=== PATIENT | male | born 1930 | race Caucasian/White ===

== ENCOUNTER 2016-07-06 23:31 | Emergency (ER) | payer MEDICARE, BC, OTHER ==
[~2016-07-06] VITALS: Ht 175.3 cm; Wt 75.3 kg
[2016-07-06 23:31] VITALS: BP 146/66
[2016-07-06] MEDS ORDERED: VITA10002 PO (23:42)
[2016-07-06] MEDS ORDERED: TAB-TAB PO (23:42)
[2016-07-06] MEDS ORDERED: FLUT1SPR2 INH (23:42)
[2016-07-06] MEDS ORDERED: LEVO50TA5 PO (23:42)
[2016-07-06] MEDS ORDERED: CRES5TAB PO (23:42)
[2016-07-06] MEDS ORDERED: AUGM875T27 PO (23:56)
[2016-07-07] MEDS ORDERED: AUGMENTIN 875 MG TAB PO ONE
== END 2016-07-07 00:14 | disposition home or self-care (01) ==
LOC: M ED 07-07 00:14
DX: L03.011 Cellulitis of right finger (principal); I10 Essential (primary) hypertension; E07.9 Disorder of thyroid, unspecified; I25.10 Atherosclerotic heart disease of native coronary artery without angina pectoris; Z79.899 Other long term (current) drug therapy

== ENCOUNTER → 2016-07-27 | Outpatient (REF) | payer MEDICARE, OTHER ==
[~2016-07-27] MED LIST: AUGM875T27 PO; CRES5TAB PO; FLUT1SPR2 INH; LEVO50TA5 PO; TAB-TAB PO; VITA10002 PO
== END ==
LOC: M LAB REF 16:55
PROVIDERS: ATTEND Surgery
DX: C44.622 Squamous cell carcinoma of skin of right upper limb, including shoulder (principal)

== ENCOUNTER → 2016-12-09 | Outpatient (CLI) | payer MEDICARE, BC, OTHER ==
[~2016-12-09] MED LIST changes: -AUGM875T27 PO; +AUGM875T28 PO
[2016-12-09 13:19] LABS: BASO % 0.4 % (0.0-1.0); EOS # 0.2 10^3/uL (0.0-0.50); EOS % 2.6 % (0.0-3.0); IMMATURE GRANULOCYTE % 0.3 % (0-0); LYMPH # 2.2 10^3/uL (1.5-4.5); LYMPH % 28.8 % (24.0-44.0); MEAN CORPUSCULAR HEMOGLOBIN 30.9 pg (27.0-33.0); MEAN CORPUSCULAR HGB CONC 31.8 g/dl (32.0-36.5); MEAN CORPUSCULAR VOLUME 97.4 fl (80.0-96.0); MONO # 0.8 10^3/uL (0.0-0.8); MONO % 9.9 % (0.0-5.0); NEUTROPHILS # 4.5 10^3/uL (1.8-7.7); PLATELET COUNT, AUTOMATED 237 10^3/uL (150-450); RED CELL DISTRIBUTION WIDTH 13.2 % (11.5-14.5); WHITE BLOOD COUNT 7.7 10^3/uL (4.0-10.0)
[2016-12-09 13:25] LABS: FOLATE > 24.0 NG/ML; VITAMIN B12 LEVEL 686 PG/ML
[2016-12-09 13:36] LABS: ALBUMIN 3.7 GM/DL (3.2-5.2); ALBUMIN/GLOBULIN RATIO 1.09 (1.00-1.93); ALKALINE PHOSPHATASE 69 U/L (45-117); ALT/SGPT 20 U/L (12-78); ANION GAP 8 MEQ/L (8-16); AST/SGOT 18 U/L (15-37); BILIRUBIN,TOTAL 0.4 MG/DL (0.2-1.0); BLOOD UREA NITROGEN 21 MG/DL (7-18); CALCIUM LEVEL 9.4 MG/DL (8.8-10.2); CARBON DIOXIDE LEVEL 28 MEQ/L (21-32); CHLORIDE LEVEL 107 MEQ/L (98-107); CHOLESTEROL LEVEL 162 MG/DL (<200); GLOMERULAR FILTRATION RATE > 60.0 (>35); GLUCOSE, FASTING 100 MG/DL (83-110); POTASSIUM SERUM 4.5 MEQ/L (3.5-5.1); SODIUM LEVEL 143 MEQ/L (136-145); TOTAL PROTEIN 7.1 GM/DL (6.4-8.2); TRIGLYCERIDES LEVEL 83 MG/DL (<150)
== END ==
LOC: M SMT 09:50
PROVIDERS: ATTEND Family Medicine
DX: D51.3 Other dietary vitamin B12 deficiency anemia (principal); E78.5 Hyperlipidemia, unspecified; E03.9 Hypothyroidism, unspecified

== ENCOUNTER → 2017-06-07 | Outpatient (CLI) | payer MEDICARE, BC, OTHER ==
[2017-06-07 18:01] LABS: BASO % 0.5 % (0.0-1.0); EOS # 0.1 10^3/uL (0.0-0.50); EOS % 1.7 % (0.0-3.0); HEMATOCRIT 33.4 % (42.0-52.0); HEMOGLOBIN 10.7 g/dl (14.0-18.0); IMMATURE GRANULOCYTE % 0.4 % (0-3.0); LYMPH # 2.9 10^3/uL (1.5-4.5); LYMPH % 34.7 % (24.0-44.0); MEAN CORPUSCULAR HEMOGLOBIN 30.8 pg (27.0-33.0); MEAN CORPUSCULAR VOLUME 96.3 fl (80.0-96.0); MONO # 0.7 10^3/uL (0.0-0.8); MONO % 8.9 % (0.0-5.0); NEUTROPHILS # 4.5 10^3/uL (1.8-7.7); NEUTROPHILS % 53.8 % (36.0-66.0); PLATELET COUNT, AUTOMATED 273 10^3/uL (150-450); RED BLOOD COUNT 3.47 10^6/uL (4.30-6.10); RED CELL DISTRIBUTION WIDTH 12.9 % (11.5-14.5); WHITE BLOOD COUNT 8.4 10^3/uL (4.0-10.0)
[2017-06-07 18:10] LABS: CHOLESTEROL LEVEL 163 MG/DL (<200); CHOLESTEROL RISK RATIO 2.432 (<5); HDL CHOLESTEROL 67 MG/DL (>40); NON-HDL-C 96 MG/DL; TRIGLYCERIDES LEVEL 160 MG/DL (<150); VITAMIN B12 LEVEL 658 PG/ML (247-911)
[2017-06-08 09:16] LABS: RETIC HEMOGLOBIN EQUIVALENT 35.6 pg (24-36); RETICULOCYTE # 37.8 10^9/L (17-77); RETICULOCYTE % 1.1 % (0.5-1.5)
[2017-06-08 09:59] LABS: FERRITIN 57 NG/ML (26-388); IRON (FE) 80 UG/DL (65-175); TOTAL IRON BINDING CAPACITY 348 UG/DL (250-450)
== END ==
LOC: M SMT 14:37
DX: E03.9 Hypothyroidism, unspecified (principal); E78.5 Hyperlipidemia, unspecified; D51.3 Other dietary vitamin B12 deficiency anemia
CPT/HCPCS: 83550

== ENCOUNTER 2017-07-17 19:17 | Emergency (ER) | payer MEDICARE, BC, OTHER | END 2017-07-17 22:37 | disposition home or self-care (01) | LOC: M ED 19:17 | DX: S00.83XA Contusion of other part of head, initial encounter (principal); S20.212A Contusion of left front wall of thorax, initial encounter; W18.30XA Fall on same level, unspecified, initial encounter; Y92.018 Other place in single-family (private) house as the place of occurrence of the external cause; E78.5 Hyperlipidemia, unspecified; E03.9 Hypothyroidism, unspecified; I25.10 Atherosclerotic heart disease of native coronary artery without angina pectoris; Z95.1 Presence of aortocoronary bypass graft; Z79.899 Other long term (current) drug therapy; Z79.890 Hormone replacement therapy; Z79.82 Long term (current) use of aspirin | CPT/HCPCS: 71046 ==

== ENCOUNTER 2017-10-10 06:08 | Day surgery (SDC) | payer MEDICARE, BC, OTHER ==
[2017-10-10] MEDS: NS 1,000 ML IV ×2 (06:45→11:35)
[2017-10-10 07:15] LABS: BASO % 0.2 % (0.0-1.0); EOS % 0.1 % (0.0-3.0); HEMATOCRIT 32.9 % (42.0-52.0); HEMOGLOBIN 10.8 g/dl (13.5-17.5); IMMATURE GRANULOCYTE % 0.4 % (0-3.0); LYMPH # 1.6 10^3/uL (1.5-4.5); LYMPH % 10.3 % (24.0-44.0); MEAN CORPUSCULAR HEMOGLOBIN 31.5 pg (27.0-33.0); MEAN CORPUSCULAR HGB CONC 32.8 g/dl (32.0-36.5); MEAN CORPUSCULAR VOLUME 95.9 fl (80.0-96.0); MONO # 1.2 10^3/uL (0.0-0.8); MONO % 7.3 % (0.0-5.0); NEUTROPHILS # 12.8 10^3/uL (1.8-7.7); NEUTROPHILS % 81.7 % (36.0-66.0); PLATELET COUNT, AUTOMATED 236 10^3/uL (150-450); RED BLOOD COUNT 3.43 10^6/uL (4.30-6.10); RED CELL DISTRIBUTION WIDTH 12.7 % (11.5-14.5); WHITE BLOOD COUNT 15.7 10^3/uL (4.0-10.0)
[2017-10-10] MEDS: ONDANSETRON 4MG/2ML VIAL (J2405) IV (07:30)
[2017-10-10 07:40] LABS: ALBUMIN 3.5 GM/DL (3.2-5.2); ALBUMIN/GLOBULIN RATIO 0.81 (1.00-1.93); ALKALINE PHOSPHATASE 60 U/L (45-117); ALT/SGPT 20 U/L (12-78); AMYLASE 42 U/L (25-115); ANION GAP 10 MEQ/L (8-16); AST/SGOT 20 U/L (7-37); BILIRUBIN,DIRECT < 0.1 MG/DL (0.0-0.2); BILIRUBIN,TOTAL 0.4 MG/DL (0.2-1.0); BLOOD UREA NITROGEN 28 MG/DL (7-18); CALCIUM LEVEL 9.3 MG/DL (8.8-10.2); CARBON DIOXIDE LEVEL 24 MEQ/L (21-32); CHLORIDE LEVEL 105 MEQ/L (98-107); CPK CREATINE PHOSPHOKINASE 73 U/L (39-308); CREATININE FOR GFR 2.06 MG/DL (0.70-1.30); GLOMERULAR FILTRATION RATE 32.6 (>35); GLUCOSE, FASTING 148 MG/DL (70-100); LIPASE 122 U/L (73-393); POTASSIUM SERUM 4.1 MEQ/L (3.5-5.1); SODIUM LEVEL 139 MEQ/L (136-145); TOTAL PROTEIN 7.8 GM/DL (6.4-8.2); TROPONIN I < 0.02 NG/ML (< 0.10)
[2017-10-10 07:40] LABS: LACTIC ACID SEPSIS PROTOCOL 1.2 MMOL/L (0.4-2.0)
[2017-10-10 07:41] LABS: CK-MB VALUE MASS 1.1 NG/ML (<3.6); KETONE, URINE AUTO RFX NEGATIVE (NEGATIVE); LEUKOCYTE ESTERASE UR AUTO RFX NEGATIVE (NEGATIVE); MUCUS, URINE RFX SMALL (NEGATIVE); NITRITE, URINE AUTO RFX NEGATIVE (NEGATIVE); RBC, URINE AUTO RFX 9 /HPF (0-3); SQUAM EPITHELIAL CELL UR AURFX 0 /HPF (0-6); WBC, URINE AUTO RFX 3 /HPF (0-3)
[2017-10-10] MEDS ORDERED: ONDANSETRON 4MG/2ML VIAL (J2405) IV ×2 (10:00→18:15)
[2017-10-10] MEDS ORDERED: PERCOCET 5MG/325MG TAB PO ×2 (10:00→18:15)
[2017-10-10] MEDS ORDERED: MORPHINE 4 MG/ML 1ML VIAL/SYRINGE (J2270) IV (10:00)
[2017-10-10] MEDS ORDERED: ACETAMINOPHEN TAB 650MG DOSE (2X325MG) PO (10:00)
[2017-10-10] MEDS ORDERED: ceFAZolin SOD 1 GM in D5W MINI-BAG PLUS 50 ML IV (11:00)
[2017-10-10] MEDS: ROSUVASTATIN 10 MG TAB (CRESTOR) PO (14:50)
[2017-10-10] MEDS: ASPIRIN 81 MG ENTERIC TAB PO (14:50)
[2017-10-10] MEDS: LEVOTHYROXINE 50MCG TABLET (0.05MG) PO (15:06)
[2017-10-10] MEDS: FLUTICASONE PROP 0.05% NASAL SPRAY 16 GM (FLONASE) NARES (15:06)
[2017-10-10] MEDS: ceFAZolin SOD 1 GM in D5W MINI-BAG PLUS 50 ML IV ×2 (15:08→22:21)
[2017-10-10] MEDS ORDERED: PROPOFOL 200 MG/20 ML VIAL As Ordered ×2 (16:18→16:22)
[2017-10-10] MEDS ORDERED: MIDAZOLAM INJ 2 MG/2 ML VIAL (J2250) As Ordered (16:18)
[2017-10-10] MEDS ORDERED: LIDOCAINE 2% INJ 100 MG/5 ML SDV (FOR ANES.) As Ordered (16:18)
[2017-10-10] MEDS ORDERED: fentaNYL 100 MCG/2 ML INJECTION (J3010) As Ordered ×2 (16:19→17:29)
[2017-10-10] MEDS ORDERED: dexameTHASONE 4 MG/ML 1ML VIAL (J1100) As Ordered (17:14)
[2017-10-10] MEDS ORDERED: GLYCOPYRROLATE INJ 0.2 MG/ML 2 ML VIAL As Ordered (17:14)
[2017-10-10] MEDS ORDERED: ONDANSETRON 4MG/2ML VIAL (J2405) As Ordered (17:14)
[2017-10-10] MEDS ORDERED: ePHEDrine SULFATE 25 MG/5 ML(5MG/ML) SYRINGE As Ordered (17:16)
[2017-10-10] MEDS: CONRAY-60 60% 50ML VIAL (Q9961) As Ordered (17:30)
[2017-10-10] MEDS ORDERED: HYDROMORPHONE HCL 0.5 MG/ 0.5 ML SYRINGE (J1170 PER 1) IV (18:15)
[2017-10-10] MEDS ORDERED: fentaNYL 100 MCG/2 ML INJECTION (J3010) IV (18:15)
[2017-10-10] MEDS: LR 1,000 ML IV (18:20)
[2017-10-11] MEDS: ceFAZolin SOD 1 GM in D5W MINI-BAG PLUS 50 ML IV (06:04)
[2017-10-11] MEDS: LEVOTHYROXINE 50MCG TABLET (0.05MG) PO (06:05)
[2017-10-11 06:24] LABS: HEMOGLOBIN 9.1 g/dl (13.5-17.5); MEAN CORPUSCULAR HEMOGLOBIN 31.7 pg (27.0-33.0); MEAN CORPUSCULAR HGB CONC 33.7 g/dl (32.0-36.5); MEAN CORPUSCULAR VOLUME 94.1 fl (80.0-96.0); PLATELET COUNT, AUTOMATED 188 10^3/uL (150-450); RED BLOOD COUNT 2.87 10^6/uL (4.30-6.10); RED CELL DISTRIBUTION WIDTH 12.6 % (11.5-14.5)
[2017-10-11 06:51] LABS: ANION GAP 9 MEQ/L (8-16); BLOOD UREA NITROGEN 23 MG/DL (7-18); CALCIUM LEVEL 8.1 MG/DL (8.8-10.2); CARBON DIOXIDE LEVEL 24 MEQ/L (21-32); CHLORIDE LEVEL 107 MEQ/L (98-107); CREATININE FOR GFR 1.48 MG/DL (0.70-1.30); GLOMERULAR FILTRATION RATE 47.8 (>35); GLUCOSE, FASTING 141 MG/DL (70-100); POTASSIUM SERUM 4.1 MEQ/L (3.5-5.1); SODIUM LEVEL 140 MEQ/L (136-145)
[2017-10-11] MEDS: FLUTICASONE PROP 0.05% NASAL SPRAY 16 GM (FLONASE) NARES (09:00)
[2017-10-11] MEDS ORDERED: ROSUVASTATIN 10 MG TAB (CRESTOR) PO (09:00)
[2017-10-11] MEDS: ROSUVASTATIN 10 MG TAB (CRESTOR) PO (09:47)
[2017-10-11] MEDS: ASPIRIN 81 MG ENTERIC TAB PO (09:47)
[2017-10-11] MEDS: CIPROFLOXACIN 500 MG TAB PO (10:01)
[2017-10-11] MEDS ORDERED: PILL CRUSHER/CUTTER 1 EACH XX (10:15)
[2017-10-18 00:06] LABS: Ca Ox Monohydrate 97 % (.); Size 8x5x3 mm (.)
== END 2017-10-11 14:32 | disposition home or self-care (01) ==
LOC: M SDC 10-11 14:32 → M ED 06:08 → M SDC 09:51 → M MSPAV 13:59
DX: N20.1 Calculus of ureter (principal); N17.9 Acute kidney failure, unspecified; N35.9 Urethral stricture, unspecified; I25.10 Atherosclerotic heart disease of native coronary artery without angina pectoris; Z95.1 Presence of aortocoronary bypass graft; Z79.82 Long term (current) use of aspirin; Z79.899 Other long term (current) drug therapy; M25.522 Pain in left elbow
CPT/HCPCS: 52352

== ENCOUNTER 2017-10-11 21:58 | Emergency (ER) | payer MEDICARE, BC, OTHER | END 2017-10-12 00:27 | disposition home or self-care (01) | LOC: M ED 21:58 | DX: T83.098A Other mechanical complication of other urinary catheter, initial encounter (principal); I25.10 Atherosclerotic heart disease of native coronary artery without angina pectoris; F03.90 Unspecified dementia, unspecified severity, without behavioral disturbance, psychotic disturbance, mood disturbance, and anxiety; Z98.890 Other specified postprocedural states; Z96.0 Presence of urogenital implants; Z79.899 Other long term (current) drug therapy ==

== ENCOUNTER → 2017-12-12 | Outpatient (CLI) | payer MEDICARE, BC, OTHER ==
[2017-12-12 16:39] LABS: BASO % 0.4 % (0.0-1.0); EOS # 0.2 10^3/uL (0.0-0.50); EOS % 3.1 % (0.0-3.0); HEMATOCRIT 31.7 % (42.0-52.0); HEMOGLOBIN 10.1 g/dl (13.5-17.5); IMMATURE GRANULOCYTE % 0.3 % (0-3.0); LYMPH # 2.3 10^3/uL (1.5-4.5); LYMPH % 30.4 % (24.0-44.0); MEAN CORPUSCULAR HEMOGLOBIN 31.3 pg (27.0-33.0); MEAN CORPUSCULAR HGB CONC 31.9 g/dl (32.0-36.5); MEAN CORPUSCULAR VOLUME 98.1 fl (80.0-96.0); MONO # 0.6 10^3/uL (0.0-0.8); MONO % 7.9 % (0.0-5.0); NEUTROPHILS # 4.5 10^3/uL (1.8-7.7); NEUTROPHILS % 57.9 % (36.0-66.0); PLATELET COUNT, AUTOMATED 262 10^3/uL (150-450); RED BLOOD COUNT 3.23 10^6/uL (4.30-6.10); RED CELL DISTRIBUTION WIDTH 13.2 % (11.5-14.5); WHITE BLOOD COUNT 7.7 10^3/uL (4.0-10.0)
[2017-12-12 16:42] LABS: ALBUMIN 4.1 GM/DL (3.2-5.2); ALBUMIN/GLOBULIN RATIO 1.37 (1.00-1.93); ALKALINE PHOSPHATASE 53 U/L (45-117); ALT/SGPT 17 U/L (12-78); ANION GAP 6 MEQ/L (8-16); AST/SGOT 16 U/L (7-37); BILIRUBIN,TOTAL 0.4 MG/DL (0.2-1.0); BLOOD UREA NITROGEN 25 MG/DL (7-18); CALCIUM LEVEL 9.8 MG/DL (8.8-10.2); CARBON DIOXIDE LEVEL 29 MEQ/L (21-32); CHLORIDE LEVEL 106 MEQ/L (98-107); CHOLESTEROL LEVEL 163 MG/DL (<200); CHOLESTEROL RISK RATIO 2.328 (<5); CREATININE FOR GFR 1.07 MG/DL (0.70-1.30); FREE T4 1.11 NG/DL (0.76-1.46); GLOMERULAR FILTRATION RATE > 60.0 (>35); GLUCOSE, FASTING 107 MG/DL (70-100); HDL CHOLESTEROL 70 MG/DL (>40); LDL CHOLESTEROL 68 MG/DL (<100); NON-HDL-C 93 MG/DL; POTASSIUM SERUM 4.1 MEQ/L (3.5-5.1); SODIUM LEVEL 141 MEQ/L (136-145); TOTAL PROTEIN 7.1 GM/DL (6.4-8.2); TRIGLYCERIDES LEVEL 125 MG/DL (<150)
== END ==
LOC: M LAB 15:46
DX: Z00.00 Encounter for general adult medical examination without abnormal findings (principal); E07.9 Disorder of thyroid, unspecified; E78.00 Pure hypercholesterolemia, unspecified
CPT/HCPCS: 84443

== ENCOUNTER 2018-03-26 06:53 | Emergency (ER) | payer MEDICARE, BC, OTHER ==
[~2018-03-26 06:53] MED LIST changes: +ASPI325T25 PO; +CIPR1TAB20 PO; +FERR325T3 PO; +FLUT1SPR2; -FLUT1SPR2 INH; +NYST10CR TOP
[2018-03-26 08:09] LABS: BASO % 0.1 % (0.0-1.0); EOS # 0.1 10^3/uL (0.0-0.50); EOS % 0.5 % (0.0-3.0); HEMATOCRIT 30.8 % (42.0-52.0); HEMOGLOBIN 10.1 g/dl (13.5-17.5); LYMPH # 1.4 10^3/uL (1.5-4.5); LYMPH % 12.2 % (24.0-44.0); MEAN CORPUSCULAR HEMOGLOBIN 31.9 pg (27.0-33.0); MEAN CORPUSCULAR HGB CONC 32.8 g/dl (32.0-36.5); MEAN CORPUSCULAR VOLUME 97.2 fl (80.0-96.0); MONO # 0.9 10^3/uL (0.0-0.8); MONO % 7.4 % (0.0-5.0); NEUTROPHILS # 9.3 10^3/uL (1.8-7.7); NEUTROPHILS % 79.1 % (36.0-66.0); PLATELET COUNT, AUTOMATED 234 10^3/uL (150-450); RED BLOOD COUNT 3.17 10^6/uL (4.30-6.10); WHITE BLOOD COUNT 11.7 10^3/uL (4.0-10.0)
[2018-03-26 08:37] LABS: BLOOD UREA NITROGEN 23 MG/DL (7-18); CALCIUM LEVEL 8.8 MG/DL (8.8-10.2); CARBON DIOXIDE LEVEL 26 MEQ/L (21-32); CHLORIDE LEVEL 107 MEQ/L (98-107); CPK CREATINE PHOSPHOKINASE 159 U/L (39-308); CREATININE FOR GFR 1.21 MG/DL (0.70-1.30); ETHYL ALCOHOL (ETHANOL) < 0.003 % (0.000-0.010); GLOMERULAR FILTRATION RATE > 60.0 (>35); GLUCOSE, FASTING 97 MG/DL (70-100); MAGNESIUM LEVEL 1.9 MG/DL (1.8-2.4); MB/CK RELATIVE INDEX 2.58 (< OR =4); POTASSIUM SERUM 4.2 MEQ/L (3.5-5.1); SODIUM LEVEL 141 MEQ/L (136-145); TROPONIN I 0.08 NG/ML (< 0.10)
--- NOTE | 2018-03-26 08:54 | ECGEPIP ---
Stationary ECG Study 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
[2018-03-26] MEDS ORDERED: TETANUS/DIPHTHERIA TOX ADSORB ADULT 0.5ML SYR/VIAL (90714) IM ONE (11:15)
[2018-03-26 11:29] VITALS: BP 117/58
== END 2018-03-26 12:17 | disposition home or self-care (01) ==
LOC: M ED 06:53 → EDBD 06:53 → M ED 12:17
DX: T33.821A Superficial frostbite of right foot, initial encounter (principal); T33.822A Superficial frostbite of left foot, initial encounter; X31.XXXA Exposure to excessive natural cold, initial encounter; Y92.89 Other specified places as the place of occurrence of the external cause; F03.90 Unspecified dementia, unspecified severity, without behavioral disturbance, psychotic disturbance, mood disturbance, and anxiety; E07.9 Disorder of thyroid, unspecified; I25.10 Atherosclerotic heart disease of native coronary artery without angina pectoris; E78.9 Disorder of lipoprotein metabolism, unspecified; Z85.46 Personal history of malignant neoplasm of prostate; Z95.1 Presence of aortocoronary bypass graft; Z79.899 Other long term (current) drug therapy; Z79.82 Long term (current) use of aspirin; Z79.890 Hormone replacement therapy
CPT/HCPCS: 36415; 80048; 82550; 82553; 83735; 84484; 85025; 90471; 90714; 93005; 93041; 94760; 99285; G0480

== ENCOUNTER 2018-04-22 17:39 | Inpatient (IN) | payer MEDICARE, BC, OTHER ==
[~2018-04-22] VITALS: Ht 172.7 cm; Wt 62.9 kg
[2018-04-22] MEDS ORDERED: MOTR200T44 PO (17:54)
[2018-04-22] MEDS ORDERED: NS 1,000 ML IV SCH (18:40)
[2018-04-22] MEDS ORDERED: ACETAMINOPHEN 325 MG TAB PO ONE (18:45)
[2018-04-22 18:48] LABS: BASO % 0.2 % (0.0-1.0); EOS % 0.1 % (0.0-3.0); HEMATOCRIT 30.1 % (42.0-52.0); HEMOGLOBIN 9.7 g/dl (13.5-17.5); LYMPH # 0.9 10^3/uL (1.5-4.5); LYMPH % 5.8 % (24.0-44.0); MEAN CORPUSCULAR HEMOGLOBIN 30.5 pg (27.0-33.0); MEAN CORPUSCULAR HGB CONC 32.2 g/dl (32.0-36.5); MEAN CORPUSCULAR VOLUME 94.7 fl (80.0-96.0); MONO # 1.1 10^3/uL (0.0-0.8); MONO % 7.6 % (0.0-5.0); NEUTROPHILS # 12.8 10^3/uL (1.8-7.7); NEUTROPHILS % 85.8 % (36.0-66.0); PLATELET COUNT, AUTOMATED 391 10^3/uL (150-450); RED BLOOD COUNT 3.18 10^6/uL (4.30-6.10); WHITE BLOOD COUNT 14.9 10^3/uL (4.0-10.0)
[2018-04-22 19:01] LABS: ALBUMIN 2.9 GM/DL (3.2-5.2); ALT/SGPT 16 U/L (12-78); BILIRUBIN,DIRECT < 0.1 MG/DL (0.0-0.2); BILIRUBIN,TOTAL 0.2 MG/DL (0.2-1.0); BLOOD UREA NITROGEN 40 MG/DL (7-18); CALCIUM LEVEL 8.7 MG/DL (8.8-10.2); CARBON DIOXIDE LEVEL 28 MEQ/L (21-32); CHLORIDE LEVEL 102 MEQ/L (98-107); CK-MB VALUE MASS < 1.0 NG/ML (<3.6); CPK CREATINE PHOSPHOKINASE 23 U/L (39-308); CREATININE FOR GFR 1.75 MG/DL (0.70-1.30); GLOMERULAR FILTRATION RATE 39.3 (>35); GLUCOSE, FASTING 139 MG/DL (70-100); LIPASE 114 U/L (73-393); MB/CK RELATIVE INDEX 4.35 (< OR =4); POTASSIUM SERUM 3.9 MEQ/L (3.5-5.1); SODIUM LEVEL 138 MEQ/L (136-145); TROPONIN I 0.02 NG/ML (< 0.10)
[2018-04-22 19:11] LABS: INR 0.98; PARTIAL THROMBOPLASTIN TIME 26.8 SECONDS (25.4-37.6); PROTHROMBIN TIME 13.1 SECONDS (12.1-14.4)
--- NOTE | 2018-04-22 19:47 | ECGEPIP ---
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
--- NOTE | 2018-04-22 19:48 | REPVR ---
EXAM: CT Abdomen and Pelvis Without Contrast EXAM DATE/TIME: 04/22/2018 6:46 PM CLINICAL HISTORY: 87 years old, male; Pain; Abdominal pain; Flank; Right; Additional info: Right flank pain, fever, HX stones TECHNIQUE: Axial computed tomography images of the abdomen and pelvis without contrast. All CT scans at this facility use at least one of these dose optimization techniques: automated exposure control; mA and/or kV adjustment per patient size (includes targeted exams where dose is matched to clinical indication); or iterative reconstruction. Coronal and sagittal reformatted images were created and reviewed. COMPARISON: CT ABD PELVIS W/O CONTRAST 10/10/2017 7:52 AM FINDINGS: Lower thorax: Atelectasis is present at the lung bases. Atherosclerotic calcifications in the coronary vessels. ABDOMEN: Liver: Noncontrast liver shows no obvious lesion. Gallbladder and bile ducts: Gallbladder is surgically absent. Pancreas: Noncontrast pancreas shows no obvious mass or adjacent fluid. Spleen: Punctate granulomatous calcifications are present within the spleen. Adrenals: Adrenal glands are normal in appearance. Kidneys and ureters: Left kidney demonstrates simple fluid density cysts. No stone or obstruction. Right kidney demonstrates lower pole stones and renal pelvis calculus measuring 9 x 3 mm. There is also a left UPJ calculus measuring 8 x 6 mm, not present on the prior CT from September 2017. Minimal obstructive change. Right ureter distal to the UPJ is normal in caliber. Stomach and bowel: Duodenal diverticulum is present. No evidence of small bowel obstruction. No evidence of acute diverticulitis. Appendix: Appendix is not seen. No RLQ inflammation to suggest appendicitis. PELVIS: Bladder: Urinary bladder is distended. Reproductive: Unremarkable as visualized. ABDOMEN and PELVIS: Intraperitoneal space: No pneumoperitoneum. Bones/joints: Degenerative changes are seen in the lumbar spine with disc height loss, endplate osteophytes and hypertrophic facet arthropathy. Soft tissues: Unremarkable. Vasculature: Atherosclerotic change present in the aorta, without aneurysm. Lymph nodes: No abnormal pelvic sidewall lymph nodes. Other findings: Limited evaluation without enteric or IV contrast. IMPRESSION: Right UPJ stone measuring 6 x 8 mm, and slightly more proximal 9 x 3 mm right renal pelvis calculus. Minimal if any collecting system dilatation at this point. This certainly could be the source of clinical symptoms however. No perinephric fluid collection or other suggestion on noncontrast CT of underlying infection Electronically signed by: Joseph Zarco On 04/22/2018 19:48:21 PM
[2018-04-22 19:52] LABS: INFLUENZA A AMPLIFICATION NEGATIVE (NEGATIVE); INFLUENZA B AMPLIFICATION NEGATIVE (NEGATIVE)
[2018-04-22] MEDS ORDERED: LIDOCAINE 2% 5ML JELLY UROJET TOP ONE (20:00)
[2018-04-22] MEDS ORDERED: cefTRIAXone SOD 1 GM in D5W MINI-BAG PLUS 50 ML IV ONE (21:00)
[2018-04-22] MEDS ORDERED: NS 500 ML IV ONE (21:00)
[2018-04-22] MEDS: NS 1,000 ML IV SCH (21:49)
[2018-04-22] MEDS ORDERED: LevoFLOXacin IV 500 MG in APPROPRIATE DILUENT 1 EA IV ONE (22:15)
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
[2018-04-22 23:50] VITALS: BP 163/69
[2018-04-23] MEDS ORDERED: ONDANSETRON 4MG/2ML VIAL (J2405) IV PRN (00:45)
[2018-04-23] MEDS ORDERED: PILL CRUSHER/CUTTER 1 EACH XX PRN (00:45)
[2018-04-23] MEDS: PANTOPRAZOLE 40MG INJ (PROTONIX) (C9113) IV SCH ×2 (00:52→20:58)
[2018-04-23] MEDS: ACETAMINOPHEN TAB 650MG DOSE (2X325MG) PO PRN ×3 (00:55→23:35)
[2018-04-23] MEDS: CYANOCOBALAMIN 500 MCG TAB PO SCH ×2 (00:56→20:58)
[2018-04-23 05:43] LABS: BASO % 0.1 % (0.0-1.0); HEMATOCRIT 26.3 % (42.0-52.0); HEMOGLOBIN 8.6 g/dl (13.5-17.5); LYMPH # 0.9 10^3/uL (1.5-4.5); MEAN CORPUSCULAR HEMOGLOBIN 30.8 pg (27.0-33.0); MEAN CORPUSCULAR HGB CONC 32.7 g/dl (32.0-36.5); MEAN CORPUSCULAR VOLUME 94.3 fl (80.0-96.0); MONO # 1.2 10^3/uL (0.0-0.8); MONO % 8.7 % (0.0-5.0); NEUTROPHILS # 11.1 10^3/uL (1.8-7.7); NEUTROPHILS % 83.6 % (36.0-66.0); RED BLOOD COUNT 2.79 10^6/uL (4.30-6.10); WHITE BLOOD COUNT 13.3 10^3/uL (4.0-10.0)
[2018-04-23 05:50] LABS: PLATELET COUNT, AUTOMATED 272 10^3/uL (150-450)
[2018-04-23] MEDS: LEVOTHYROXINE 50MCG TABLET (0.05MG) PO SCH (05:55)
[2018-04-23 06:00] VITALS: BP 151/67
[2018-04-23 06:10] LABS: CALCIUM LEVEL 8.5 MG/DL (8.8-10.2); CREATININE FOR GFR 1.67 MG/DL (0.70-1.30); GLOMERULAR FILTRATION RATE 41.4 (>35); POTASSIUM SERUM 3.7 MEQ/L (3.5-5.1)
[2018-04-23] MEDS: ROSUVASTATIN 10 MG TAB (CRESTOR) PO SCH (08:47)
--- NOTE | 2018-04-23 09:01 | REP ---
CHEST, PORTABLE: AP portable view of the chest is performed and compared to a prior study of 07/17/2017. There is no acute infiltrate. Heart is normal in size and there is calcification of the thoracic aorta. Multiple sternal wires are present. IMPRESSION: No acute infiltrate. Electronically Signed by Morgan Glez MD 04/23/2018 06:47 P
[2018-04-23] MEDS ORDERED: NYSTATIN OINTMENT 15 GM TOP PRN (09:30)
[2018-04-23 10:34] LABS: TROPONIN I 0.17 NG/ML (< 0.10)
[2018-04-23] MEDS ORDERED: PIPERACILLIN/TAZOBACTAM SOD 3.375 GM in D5W MINI-BAG PLUS 50 ML IV ONE (11:00)
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
--- NOTE | 2018-04-23 12:05 | IPNPDOC ---
Date Seen The patient was seen on 04/23/18. Progress Note SUBJECTIVE: Patient does not know why he is in the hospital he denies any specific complaints to me at this time he denies flank pain or changes in his urinary symptoms or fevers. His daughter and are bedside and forwarded yesterday began to complain of pain in the back as well as having fevers continued to them that it felt as though he was having another kidney stone which prompted them to bring him to the emergency room OBJECTIVE PHYSICAL EXAMINATION: VITAL SIGNS: Please see below. GENERAL: Frail elderly man lying flat in bed speaking in complete sentences he does not appear to be in any acute distress he is somewhat disoriented and is not far from his baseline as per his family was bedside HEENT: Cranial nerves II through XII appear grossly intact CARDIOVASCULAR: S1-S2 regular. RESPIRATORY: Clear to auscultation bilaterally. ABDOMINAL: Bowel sounds are present abdomen soft he winces over abdominal palpation but denies any complaints EXTREMITIES: No cyanosis or edema LABORATORY DATA, IMAGING STUDIES, MICROBIOLOGY: Please see below. DVT prophylaxis ordered?: Ashutosh and salvatore ASSESSMENT AND PLAN: This is a 87-year-old man with possible sepsis secondary to obstructive uropathy. PROBLEMS: 1. Early sepsis secondary to obstructive uropathy: Urology consultation greatly appreciated the plan is apparently for him to have a cystoscopy later on this afternoon which I do agree with given his clinical presentation and imaging findings. He did have similar procedure completed within the last year which he tolerated quite well. In regards to risk stratification he is at moderate risk for the procedure given his age history of coronary disease however no further testing is needed prior to procedure he is medically optimized to proceed. He is on levofloxacin he was given additional dose of Zosyn as per urology. He is currently on normal saline, he has a history of prostate cancer and only follows Dr. [facility]. He did have blood culture bottles positive I will recheck and ensure that he is continually covered with antibiotics 2. Dyslipidemia: Continue with statin. 3. Hypothyroidism: Continue Synthroid. 4. Iron deficiency anemia: Continue with iron supplementation he may have an element of anemia secondary to chronic kidney disease as well 5. B12 deficiency: Continue with supplementation 6. Dementia: The patient is at his baseline mental status 7. Acute kidney injury: He does have a slight elevation in his creatinine at the time of his presentation likely related to his obstruction DISPOSITION: Pending urological procedure and clinical improvement. VS, I&O, 24H, Fishbone Vital Signs/I&O Vital Signs Date Time Temp Pulse Resp B/P (MAP) Pulse Ox O2 Delivery O2 Flow Rate FiO2 04/23/18 06:00 98.6 95 19 151/67 (95) 95 04/22/18 23:38 Room Air l I&O- Last 24 Hours up to 6 AM 04/23/18 06:00 Intake Total 800 ml Output Total 0 ml Balance 800 ml Laboratory Data 24H LABS Laboratory Tests 2 04/22/18 17:54: Immature Granulocyte % (Auto) 0.5, White Blood Count 14.9H, Red Blood Count 3.18L, Hemoglobin 9.7L, Hematocrit 30.1L, Mean Corpuscular Volume 94.7, Mean Corpuscular Hemoglobin 30.5, Mean Corpuscular Hemoglobin Concent 32.2, Red Cell Distribution Width 13.1, Platelet Count 391, Neutrophils (%) (Auto) 85.8H, Lymphocytes (%) (Auto) 5.8L, Monocytes (%) (Auto) 7.6H, Eosinophils (%) (Auto) 0.1, Basophils (%) (Auto) 0.2, Neutrophils # (Auto) 12.8H, Lymphocytes # (Auto) 0.9L, Monocytes # (Auto) 1.1H, Eosinophils # (Auto) 0.0, Basophils # (Auto) 0.0, Nucleated Red Blood Cells % (auto) 0.0, Prothrombin Time 13.1, Prothromb Time International Ratio 0.98, Activated Partial Thromboplast Time 26.8, Anion Gap 8, Glomerular Filtration Rate 39.3, Lactic Acid Level 1.2, Calcium Level 8.7L, Aspartate Amino Transf (AST/SGOT) 12, Alanine Aminotransferase (ALT/SGPT) 16, Alkaline Phosphatase 76, Total Bilirubin 0.2, Direct Bilirubin < 0.1, Total Creatine Kinase 23L, Creatine Kinase MB < 1.0, Creatine Kinase MB Relative Index 4.35H, Troponin I 0.02, Total Protein 7.0, Albumin 2.9L, Albumin/Globulin Ratio 0.71L, Lipase 114 04/22/18 19:15: Influenza Type A (RT-PCR) NEGATIVE, Influenza Type B (RT-PCR) NEGATIVE 04/22/18 20:08: Urine Color YELLOW, Urine Appearance HAZY, Urine pH 5.0, Urine Specific [place] 1.011, Urine Protein 1+H, Urine Glucose (UA) NEGATIVE, Urine Ketones NEGATIVE, Urine Blood 2+H, Urine Nitrite NEGATIVE, Urine Bilirubin NEGATIVE, Urine Urobilinogen 0.2, Urine Leukocyte Esterase NEGATIVE, Urine WBC (Auto) 8H, Urine RBC (Auto) 55H, Urine Hyaline Casts (Auto) 5, Urine Bacteria (Auto) NEGATIVE, Ur ine Squamous Epithelial Cells 0, Urine Transitional Epithelial Cells <1, Urine Mucus (Auto) SMALL, Urine Sperm (Auto) 04/23/18 00:10: Bedside Glucose (Misc Panel) 155H 04/23/18 05:29: Immature Granulocyte % (Auto) 0.6, White Blood Count 13.3H, Red Blood Count 2.79L, Hemoglobin 8.6L, Hematocrit 26.3L, Mean Corpuscular Volume 94.3, Mean Corpuscular Hemoglobin 30.8, Mean Corpuscular Hemoglobin Concent 32.7, Red Cell Distribution Width 13.2, Platelet Count 272#, Neutrophils (%) (Auto) 83.6H, Lymphocytes (%) (Auto) 7.0L, Monocytes (%) (Auto) 8.7H, Eosinophils (%) (Auto) 0.0, Basophils (%) (Auto) 0.1, Neutrophils # (Auto) 11.1H, Lymphocytes # (Auto) 0.9L, Monocytes # (Auto) 1.2H, Eosinophils # (Auto) 0.0, Basophils # (Auto) 0.0, Nucleated Red Blood Cells % (auto) 0.0, Anion Gap 9, Glomerular Filtration Rate 41.4, Blood Urea Nitrogen 38H, Creatinine 1.67H, Sodium Level 137, Potassium Level 3.7, Chloride Level 104, Carbon Dioxide Level 24, Calcium Level 8.5L, Troponin I 0.17#H 04/23/18 06:21: Bedside Glucose (Misc Panel) 124H CBC/BMP Laboratory Tests 04/22/18 17:54 Red Blood Count 3.18 L, Mean Corpuscular Volume 94.7, Mean Corpuscular Hemoglobin 30.5, Mean Corpuscular Hemoglobin Concent 32.2, Red Cell Distribution Width 13.1, Neutrophils (%) (Auto) 85.8 H, Lymphocytes (%) (Auto) 5.8 L, Monocytes (%) (Auto) 7.6 H, Eosinophils (%) (Auto) 0.1, Basophils (%) (Auto) 0.2, Neutrophils # (Auto) 12.8 H, Lymphocytes # (Auto) 0.9 L, Monocytes # (Auto) 1.1 H, Eosinophils # (Auto) 0.0, Basophils # (Auto) 0.0 04/23/18 05:29 Red Blood Count 2.79 L, Mean Corpuscular Volume 94.3, Mean Corpuscular Hemoglobin 30.8, Mean Corpuscular Hemoglobin Concent 32.7, Red Cell Distribution Width 13.2, Neutrophils (%) (Auto) 83.6 H, Lymphocytes (%) (Auto) 7.0 L, Monocytes (%) (Auto) 8.7 H, Eosinophils (%) (Auto) 0.0, Basophils (%) (Auto) 0.1, Neutrophils # (Auto) 11.1 H, Lymphocytes # (Auto) 0.9 L, Monocytes # (Auto) 1.2 H, Eosinophils # (Auto) 0.0, Basophils # (Auto) 0.0, Calcium Level 8.5 L Microbiology Microbiology 04/23/18 Blood Culture, Received Pending 04/22/18 Blood Culture - Preliminary, Resulted RYLEY JORDAN MD Apr 23, 2018 12:05
[2018-04-23] MEDS ORDERED: ASPIRIN 325 MG TAB PO ONE (13:30)
[2018-04-23] MEDS: ENOXAPARIN 80 MG/0.8 ML SYRINGE (J1650) SC SCH (14:16)
[2018-04-23] MEDS: METOPROLOL TART 12.5 MG PER 1/2 TAB PO SCH ×2 (14:16→19:49)
[2018-04-23] MEDS: NS 1,000 ML IV SCH (14:17)
[2018-04-23] MEDS: PIPERACILLIN/TAZOBACTAM SOD 3.375 GM in D5W MINI-BAG PLUS 50 ML IV SCH ×2 (14:17→20:59)
[2018-04-23] MEDS ORDERED: VANCOMYCIN HCL 1,000 MG, VIAL MATE ADAPTER 1 EACH in D5W 250 ML IV ONE (15:00)
[2018-04-23 16:00] VITALS: BP 134/63
[2018-04-23 17:00] VITALS: BP 148/65
[2018-04-23 20:00] VITALS: BP 138/63
[2018-04-23] MEDS: FERROUS SULFATE 325MG TAB PO SCH ×2 (20:58→21:00)
[2018-04-23] MEDS ORDERED: LevoFLOXacin IV 250 MG in APPROPRIATE DILUENT 1 EA IV SCH (22:00)
--- NOTE | 2018-04-23 23:29 | IPNPDOC ---
Date Seen The patient was seen on 04/23/18. Progress Note I was informed about Arcadio He was most recent troponin was said to haverisen 1point from 1.3 done at 12:00 today However granddaughter patients bedside, reported also that patient complained of a brief period of what appears to be back pain. On account of this, I asked for repeat EKG which came back unchanged from previous EKGs. Patient was seen and examined at bedside. VITAL SIGNS: Temperature 97.7 , pulse 71, respiratory rate 18, blood pressure 138/63, pulse oximetry 97% on room air. GENERAL APPEARANCE: Elderly man, lying calmly in bed, not in any apparent distress. He is not pale, anicteric and afebrile. Plan Curb sided with Dr. Siddiqi and he agrees with patients current management. Continue medical management with Lovenox, beta tamika. Patient already scheduled for echocardiogram for tomorrow. His currently getting when necessary acetaminophen for pain. Had been assessed his pain levels as patient is currently comfortable. I will hold off escalating pain medications at this time. Daughter was informed on questions asked was sufficiently answered to the best of my knowledge. VS, I&O, 24H, Fishbone Vital Signs/I&O Vital Signs Date Time Temp Pulse Resp B/P (MAP) Pulse Ox O2 Delivery O2 Flow Rate FiO2 04/23/18 20:00 97.7 71 18 138/63 (88) 97 04/22/18 23:38 Room Air I&O- Last 24 Hours up to 6 AM 04/23/18 06:00 Intake Total 800 ml Output Total 0 ml Balance 800 ml Laboratory Data 24H LABS Laboratory Tests 2 04/23/18 00:10: Bedside Glucose (Misc Panel) 155H 04/23/18 05:29: Immature Granulocyte % (Auto) 0.6, White Blood Count 13.3H, Red Blood Count 2.79L, Hemoglobin 8.6L, Hematocrit 26.3L, Mean Corpuscular Volume 94.3, Mean Corpuscular Hemoglobin 30.8, Mean Corpuscular Hemoglobin Concent 32.7, Red Cell Distribution Width 13.2, Platelet Count 272#, Neutrophils (%) (Auto) 83.6H, Lymphocytes (%) (Auto) 7.0L, Monocytes (%) (Auto) 8.7H, Eosinophils (%) (Auto) 0.0, Basophils (%) (Auto) 0.1, Neutrophils # (Auto) 11.1H, Lymphocytes # (Auto) 0.9L, Monocytes # (Auto) 1.2H, Eosinophils # (Auto) 0.0, Basophils # (Auto) 0.0, Nucleated Red Blood Cells % (auto) 0.0, Anion Gap 9, Glomerular Filtration Rate 41.4, Blood Urea Nitrogen 38H, Creatinine 1.67H, Sodium Level 137, Potassium Level 3.7, Chloride Level 104, Carbon Dioxide Level 24, Calcium Level 8.5L, Troponin I 0.17#H 04/23/18 06:21: Bedside Glucose (Misc Panel) 124H 04/23/18 11:49: Bedside Glucose (Misc Panel) 126H 04/23/18 12:28: Troponin I 1.38#H 04/23/18 21:51: Troponin I 2.30#*H CBC/BMP Laboratory Tests 04/23/18 05:29 Red Blood Count 2.79 L, Mean Corpuscular Volume 94.3, Mean Corpuscular Hemoglobin 30.8, Mean Corpuscular Hemoglobin Concent 32.7, Red Cell Distribution Width 13.2, Neutrophils (%) (Auto) 83.6 H, Lymphocytes (%) (Auto) 7.0 L, Monocytes (%) (Auto) 8.7 H, Eosinophils (%) (Auto) 0.0, Basophils (%) (Auto) 0.1, Neutrophils # (Auto) 11.1 H, Lymphocytes # (Auto) 0.9 L, Monocytes # (Auto) 1.2 H, Eosinophils # (Auto) 0.0, Basophils # (Auto) 0.0, Calcium Level 8.5 L Microbiology Microbiology 04/23/18 Blood Culture, Received Pending 04/22/18 Blood Culture - Preliminary, Resulted JAMES MARQUEZ MD Apr 23, 2018 23:29
[2018-04-24] VITALS (7 sets, daily range): BP systolic 114–165; BP diastolic 57–72
[2018-04-24] MEDS: ENOXAPARIN 80 MG/0.8 ML SYRINGE (J1650) SC SCH ×2 (02:00→13:14)
[2018-04-24] MEDS: PIPERACILLIN/TAZOBACTAM SOD 3.375 GM in D5W MINI-BAG PLUS 50 ML IV SCH ×3 (05:26→20:56)
[2018-04-24] MEDS: NS 1,000 ML IV SCH ×2 (05:26→13:49)
[2018-04-24] MEDS: LEVOTHYROXINE 50MCG TABLET (0.05MG) PO SCH (05:26)
[2018-04-24] MEDS: ACETAMINOPHEN TAB 650MG DOSE (2X325MG) PO PRN ×4 (05:33→19:58)
[2018-04-24 06:16] LABS: HEMATOCRIT 25.4 % (42.0-52.0); HEMOGLOBIN 8.1 g/dl (13.5-17.5); MEAN CORPUSCULAR HEMOGLOBIN 30.8 pg (27.0-33.0); MEAN CORPUSCULAR HGB CONC 31.9 g/dl (32.0-36.5); MEAN CORPUSCULAR VOLUME 96.6 fl (80.0-96.0); PLATELET COUNT, AUTOMATED 248 10^3/uL (150-450); RED BLOOD COUNT 2.63 10^6/uL (4.30-6.10); WHITE BLOOD COUNT 11.2 10^3/uL (4.0-10.0)
[2018-04-24 06:43] LABS: BILIRUBIN,TOTAL 0.2 MG/DL (0.2-1.0); CALCIUM LEVEL 7.9 MG/DL (8.8-10.2); CREATININE FOR GFR 1.36 MG/DL (0.70-1.30); GLOMERULAR FILTRATION RATE 52.5 (>35); POTASSIUM SERUM 3.4 MEQ/L (3.5-5.1); TOTAL PROTEIN 6.2 GM/DL (6.4-8.2); TROPONIN I 1.74 NG/ML (< 0.10)
--- NOTE | 2018-04-24 08:14 | ECGEPIP ---
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
[2018-04-24] MEDS: ROSUVASTATIN 10 MG TAB (CRESTOR) PO SCH (08:20)
[2018-04-24] MEDS: METOPROLOL TART 12.5 MG PER 1/2 TAB PO SCH ×2 (08:20→19:56)
[2018-04-24] MEDS: VANCOMYCIN HCL 750 MG, VIAL MATE ADAPTER 1 EACH in D5W 250 ML IV SCH ×2 (08:20→19:49)
--- NOTE | 2018-04-24 08:25 | ECGEPIP ---
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
--- NOTE | 2018-04-24 09:50 | REP ---
BLADDER ULTRASOUND: Real-time sonographic evaluation of urinary bladder performed. Bladder is moderately distended measuring 11.7 x 8.6 x 8.9 cm for a total volume of 467 mL. After voiding, there is significant postvoid residual of 434 mL. Debris is seen in the bladder. There are bilateral ureteral jets in the urinary bladder with Doppler color evaluation. No mass or calculus is seen. Prostate measures 2.9 x 2.2 x 3.2 cm and contains several calcifications. Total prostate volume is 10.7 mL. IMPRESSION: No bladder mass or calculus. Bilateral ureteral jets noted. There is significant postvoid residual, as discussed above. Prostate is not enlarged. Electronically Signed by Morgan Glez MD 04/24/2018 10:37 P
--- NOTE | 2018-04-24 09:54 | IPN ---
DATE: 04/24/2018 Mr. Lopez apparently had some discomfort last night. It was located principally in his left flank and over left lateral lower ribs. Unfortunately, due to his dementia he has no recollection, but date according to his granddaughter who is at his bedside, it lasted for some time. His troponin yesterday peaked around 2 and has been going down since. The ECG did not reveal any new ischemic abnormalities. ECG from this morning is still pending. He currently denies any complaints. VITAL SIGNS: Blood pressure 140/65, heart rate has been from 60s to 80s. He is afebrile. Saturation 96% on room air. Fluid balance yesterday was not well documented. Weight was documented 97.8 which is undoubtedly incorrect. He is alert. He is oriented times one. His jugular venous pressure (JVP) is not high. Lungs are clear. Heart exam reveals regular rhythm. There is a faint murmur over the aortic valve, maybe 1/6 systolic ejection in nature. No gallop, no rub. Abdomen is soft. He still has bandages over both ankles and feet. Peripheral pulses are present. LABORATORY: Hemoglobin is 8.1, hematocrit 25, platelet count 248,000. Basic metabolic panel sodium 138, potassium 3.4, BUN 30, creatinine 1.4 and glucose 121. Troponin peaked at 2.3, is down to 1.7 this morning. ASSESSMENT/PLAN: Mr. Lopez is a 87-year-old man who has a history of three-vessel bypass surgery 19 years ago in [place] and no cardiac followup since. He presented with obstructed ureter with signs of infection and developed troponin elevation without any tanisha chest discomfort per se. His ECG did not reveal any convincing ischemic abnormalities. At this point, we tentatively plan to continue conservative management. He is on aspirin and Lovenox, which I would continue at least one more day. Hopefully there will not be any additional problem, at which point we probably can let him go through a relatively low risk procedure later this week. On the other hand, should there be additional troponin elevation or new abnormalities, we may consider cardiac catheterization even though considering his advanced dementia, anemia, renal insufficiency and severe frostbite on the lower extremities, I would prefer to be conservative.
--- NOTE | 2018-04-24 10:32 | ECGEPIP ---
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
--- NOTE | 2018-04-24 12:21 | IPNPDOC ---
Date Seen The patient was seen on 04/24/18. Progress Note SUBJECTIVE: Patient denies complaints whatsoever this AM. Daughter's bedside and provides interval history OBJECTIVE PHYSICAL EXAMINATION: VITAL SIGNS: Please see below. GENERAL: Frail elderly man lying flat in bed speaking in complete sentences he does not appear to be in any distress HEENT: Cranial nerves II through XII appear grossly intact CARDIOVASCULAR: S1-S2 regular. RESPIRATORY: Clear to auscultation bilaterally. ABDOMINAL: Bowel sounds are present abdomen soft he winces over abdominal palpation but denies any complaints EXTREMITIES: No cyanosis or edema LABORATORY DATA, IMAGING STUDIES, MICROBIOLOGY: Please see below. DVT prophylaxis ordered?: Teds and sequentials ASSESSMENT AND PLAN: This is a 87-year-old man with possible sepsis secondary to obstructive uropathy. PROBLEMS: 1. Early sepsis secondary to obstructive uropathy: Urology consultation greatly appreciated the plan was initially for cystoscopy and stent placement however his rising troponin was concerning and we placed a procedure on hold we are meeting medically treating him and optimizing him with the help of cardiology in the progressive care unit his troponins downtrending. I agree with Dr. Siddiqi that he could likely undergoes procedure the next 24-48 hours. Beyond that he would benefit from an ischemic workup. I do agree with Dr. Siddiqi did have a lengthy conversation with the patient's family that given his advanced dementia he may not benefit greatly from CABG or cardiac catheterization they are adamant about proceeding with any necessary interventions that ischemic workup would reveal. 2. Abnormal troponin: Likely demand ischemia from his acute presentation of obstructing stone and early sepsis does appear to be improving with medical management cardiogenic greatly appreciated he is on an aspirin a statin beta tamika and therapeutic Lovenox for the time being. An echocardiogram has been ordered 2. Dyslipidemia: Continue with statin. 3. Hypothyroidism: Continue Synthroid. 4. Iron deficiency anemia: Continue with iron supplementation he may have an element of anemia secondary to chronic kidney disease as well 5. B12 deficiency: Continue with supplementation 6. Dementia: The patient is at his baseline mental status which is disoriented 7. Acute kidney injury: He does have a slight elevation in his creatinine at the time of his presentation likely related to his obstruction it appears to be downtrending I will a Rose catheter placed as he does have some significant evidence of urinary retention in his bladder DISPOSITION: Pending risk stratification prior to urological procedure by cardiology VS, I&O, 24H, Fishbone Vital Signs/I&O Vital Signs Date Time Temp Pulse Resp B/P (MAP) Pulse Ox O2 Delivery O2 Flow Rate FiO2 04/24/18 08:20 74 141/64 04/24/18 08:18 99.5 18 04/24/18 07:55 96 04/22/18 23:38 Room Air I&O- Last 24 Hours up to 6 AM 04/24/18 06:00 Intake Total 1152 ml Output Total 0 ml Balance 1152 ml Laboratory Data 24H LABS Laboratory Tests 2 04/23/18 12:28: Troponin I 1.38#H 04/23/18 21:51: Troponin I 2.30#*H 04/24/18 05:29: Troponin I 1.74#*H, Anion Gap 7L, Glomerular Filtration Rate 52.5, Blood Urea Nitrogen 30H, Creatinine 1.36H, Sodium Level 138, Potassium Level 3.4L, Chloride Level 106, Carbon Dioxide Level 25, Calcium Level 7.9L, Aspartate Amino Transf (AST/SGOT) 52H, Alanine Aminotransferase (ALT/SGPT) 45, Alkaline Phosphatase 70, Total Bilirubin 0.2, Total Protein 6.2L, Albumin 2.0#L, Albumin/Globulin Ratio 0.48L 04/24/18 06:00: Nucleated Red Blood Cells % (auto) 0.0 CBC/BMP Laboratory Tests 04/24/18 05:29 Calcium Level 7.9 L, Aspartate Amino Transf (AST/SGOT) 52 H, Alanine Aminotransferase (ALT/SGPT) 45, Alkaline Phosphatase 70, Total Bilirubin 0.2, Total Protein 6.2 L, Albumin 2.0 #L 04/24/18 06:00 Red Blood Count 2.63 L, Mean Corpuscular Volume 96.6 H, Mean Corpuscular Hemoglobin 30.8, Mean Corpuscular Hemoglobin Concent 31.9 L, Red Cell Distribution Width 13.5 Microbiology Microbiology 04/23/18 Blood Culture - Preliminary, Resulted No growth after 24 hours . All specim... 04/22/18 Blood Culture - Preliminary, Resulted Staphylococcus Aureus RYLEY JORDAN MD Apr 24, 2018 12:21
[2018-04-24] MEDS ORDERED: POTASSIUM CHLORIDE 10 MEQ SR TABLET PO ONE (12:30)
--- NOTE | 2018-04-24 13:03 | IPNPDOC ---
Date Seen The patient was seen on 04/24/18. Progress Note SUBJECTIVE: Patient is a 87yo white male with right renal stones x 3, reported urethral stricture, urinary retention and current 16f rivas placed by RN. OBJECTIVE REVIEW OF SYSTEMS: CONSTITUTIONAL: alert but no oriented (funny) HEENT: normal. CARDIOVASCULAR: cad/cabg. RESPIRATORY: former smoker. GENITOURINARY: urethral stricture; right kidney stones in the past. MUSCULOSKELETAL: krishnamurthy bite lower extremity recently; his daughter is a registered nurse; was asleep; they have alarms but son says (his mother) is sound sleeper. GASTROINTESTINAL: constipation. SKIN: krishnamurthy bite. NEUROLOGICAL: same as psych. PSYCHIATRIC: funny, no depression or anxiety, thinks singh is president (not sure which singh). ENDOCRINE: no diabetes; hypothyroid. HEMATOLOGIC/LYMPHATIC: given aspirin and ibuprofen recently warned about bleeding issues. ALLERGIC/IMMUNOLOGIC: none. HOME MEDICATIONS: Please see below. PHYSICAL EXAMINATION: GENERAL APPEARANCE: Elderly man, lying calmly in bed, not in any apparent distress. He is not pale, anicteric and afebrile HEENT: Atraumatic. Neck: Supple. LUNGS: Clear to auscultation bilaterally. CARDIOVASCULAR: S1 and 2 heard, no murmurs, rubs or gallops. ABDOMEN: Soft, Right flank tenderness elicited, not distended. Bowel sounds normoactive. MUSCULOSKELETAL: Apparently within normal limits. EXTREMITIES: No pedal edema, bilateral clean dressing to both feet. NEUROLOGICAL: Awake, alert, oriented 2, with evident memory/cognitive disorder. PSYCHIATRIC: Normal affect LABORATORY DATA, IMAGING STUDIES, MICROBIOLOGY: Please see below. Echocardiogram: planned. DVT prophylaxis ordered?: lovenox ASSESSMENT AND PLAN: This is a 87yo white male with ... PROBLEMS: 1. jas: resolving without intervention other than hydration. 2. right renal stones x3 (were not there after dr. alejo's surgery in or 10/2017: pt has was to have stent placement d/t possible ball valving of the upj stone. 3. urinary retention: 16f rivas placed by his current rn without much difficulty (she did attempt 18f rivas x1 but with slightest resistance turned to the 16f urethral rivas). 4. dr. alejo is aware of the pt and will follow up with patient tomorrow for next steps. 5. acute elevations of troponins: family and hospitalist are in discussion about next steps. DISPOSITION: inpatient as the patient recovers from acute issues. VS, I&O, 24H, Fishbone Vital Signs/I&O Vital Signs Date Time Temp Pulse Resp B/P (MAP) Pulse Ox O2 Delivery O2 Flow Rate FiO2 04/24/18 12:00 98.5 65 19 135/60 (85) 98 04/22/18 23:38 Room Air I&O- Last 24 Hours up to 6 AM 04/24/18 06:00 Intake Total 1152 ml Output Total 0 ml Balance 1152 ml Laboratory Data 24H LABS Laboratory Tests 2 04/23/18 21:51: Troponin I 2.30#*H 04/24/18 05:29: Troponin I 1.74#*H, Anion Gap 7L, Glomerular Filtration Rate 52.5, Blood Urea Nitrogen 30H, Creatinine 1.36H, Sodium Level 138, Potassium Level 3.4L, Chloride Level 106, Carbon Dioxide Level 25, Calcium Level 7.9L, Aspartate Amino Transf (AST/SGOT) 52H, Alanine Aminotransferase (ALT/SGPT) 45, Alkaline Phosphatase 70, Total Bilirubin 0.2, Total Protein 6.2L, Albumin 2.0#L, Albumin/Globulin Ratio 0.48L 04/24/18 06:00: Nucleated Red Blood Cells % (auto) 0.0 CBC/BMP Laboratory Tests 04/24/18 05:29 Calcium Level 7.9 L, Aspartate Amino Transf (AST/SGOT) 52 H, Alanine Aminotransferase (ALT/SGPT) 45, Alkaline Phosphatase 70, Total Bilirubin 0.2, Total Protein 6.2 L, Albumin 2.0 #L 04/24/18 06:00 Red Blood Count 2.63 L, Mean Corpuscular Volume 96.6 H, Mean Corpuscular Hemoglobin 30.8, Mean Corpuscular Hemoglobin Concent 31.9 L, Red Cell Distribution Width 13.5 Microbiology Microbiology 04/23/18 Blood Culture - Preliminary, Resulted No growth after 24 hours . All specim... 04/22/18 Blood Culture - Preliminary, Resulted Staphylococcus Aureus Annel Carlos MD Apr 24, 2018 13:03
[2018-04-24] MEDS: CYANOCOBALAMIN 500 MCG TAB PO SCH (19:58)
[2018-04-24] MEDS: PANTOPRAZOLE 40MG INJ (PROTONIX) (C9113) IV SCH (19:58)
[2018-04-25] MEDS: ENOXAPARIN 80 MG/0.8 ML SYRINGE (J1650) SC SCH (02:00)
[2018-04-25] MEDS: NS 1,000 ML IV SCH ×2 (03:09→17:05)
[2018-04-25 04:00] VITALS: BP 142/80
[2018-04-25] MEDS: LEVOTHYROXINE 50MCG TABLET (0.05MG) PO SCH (05:16)
[2018-04-25] MEDS: PIPERACILLIN/TAZOBACTAM SOD 3.375 GM in D5W MINI-BAG PLUS 50 ML IV SCH ×2 (05:16→14:21)
[2018-04-25 06:38] LABS: TROPONIN I 0.94 NG/ML (< 0.10)
[2018-04-25 07:48] LABS: BASO % 0.2 % (0.0-1.0); EOS # 0.1 10^3/uL (0.0-0.50); EOS % 0.5 % (0.0-3.0); HEMATOCRIT 22.5 % (42.0-52.0); HEMOGLOBIN 7.4 g/dl (13.5-17.5); LYMPH # 1.3 10^3/uL (1.5-4.5); LYMPH % 11.4 % (24.0-44.0); MEAN CORPUSCULAR HEMOGLOBIN 30.7 pg (27.0-33.0); MEAN CORPUSCULAR HGB CONC 32.9 g/dl (32.0-36.5); MEAN CORPUSCULAR VOLUME 93.4 fl (80.0-96.0); MONO % 8.8 % (0.0-5.0); NEUTROPHILS # 8.6 10^3/uL (1.8-7.7); NEUTROPHILS % 78.7 % (36.0-66.0); PLATELET COUNT, AUTOMATED 271 10^3/uL (150-450); RED BLOOD COUNT 2.41 10^6/uL (4.30-6.10); WHITE BLOOD COUNT 10.9 10^3/uL (4.0-10.0)
[2018-04-25 07:59] LABS: ALBUMIN 1.9 GM/DL (3.2-5.2); ALT/SGPT 104 U/L (12-78); BILIRUBIN,TOTAL 0.2 MG/DL (0.2-1.0); BLOOD UREA NITROGEN 20 MG/DL (7-18); CALCIUM LEVEL 7.9 MG/DL (8.8-10.2); CARBON DIOXIDE LEVEL 25 MEQ/L (21-32); CHLORIDE LEVEL 105 MEQ/L (98-107); CREATININE FOR GFR 1.12 MG/DL (0.70-1.30); GLOMERULAR FILTRATION RATE > 60.0 (>35); GLUCOSE, FASTING 118 MG/DL (70-100); MAGNESIUM LEVEL 1.6 MG/DL (1.8-2.4); POTASSIUM SERUM 3.2 MEQ/L (3.5-5.1); SODIUM LEVEL 137 MEQ/L (136-145); TOTAL PROTEIN 5.7 GM/DL (6.4-8.2)
[2018-04-25 08:00] VITALS: BP 154/68
[2018-04-25] MEDS: VANCOMYCIN HCL 750 MG, VIAL MATE ADAPTER 1 EACH in D5W 250 ML IV SCH (08:27)
[2018-04-25] MEDS: ROSUVASTATIN 10 MG TAB (CRESTOR) PO SCH (08:28)
[2018-04-25] MEDS: METOPROLOL TART 12.5 MG PER 1/2 TAB PO SCH ×2 (08:28→20:33)
--- NOTE | 2018-04-25 08:37 | IPN ---
DATE: 04/25/2018 Mr. Lopez had an uneventful day yesterday. He apparently did not have any discomfort in his chest or abdomen. There were no unusual events. He had an echocardiogram. It has not been reported as yet. Electrocardiogram yesterday revealed his chronic right bundle branch block and minimal ST-T abnormalities that if anything looked better than on his previous ECG. On physical exam this morning his blood pressure was 142/80, heart rate has been in 60s an 70s. He is afebrile, saturation 95%, and his weight was documented 73.7 kg. He is alert and oriented times one. His jugular venous pulse (JVP) is not up. Lungs are clear with good air movement. Heart exam reveals regular rhythm with widely splitting second heart sound. Faint murmur. Abdomen is soft. No obvious tenderness. No peripheral edema. Peripheral pulses remain good. His feet remain bandaged. Laboratory [place], basic metabolic panel reveals sodium 137, potassium 3.2, BUN 20, creatinine 1.1, glucose 118. His troponin is trending down, it is 0.94 today; but unfortunately, his CBC reveals ongoing worsening anemia, hemoglobin 7.4, hematocrit 22 and platelet count 271,000. ASSESSMENT AND PLAN: Mr. Lopez is an 87-year-old man, who has a remote history of bypass surgery almost 20 years ago, who presented with urinary obstruction and very likely will need extraction of kidney stone, but has a complicated factor he developed troponin elevation without clear-cut anginal symptoms or changes on ECG. He was given Lovenox. I see that his aspirin was discontinued and so we will have to put him back on. I do not see any convincing evidence for ischemic abnormalities on ECG. His echocardiogram is still pending. I am afraid that will have to discontinue Lovenox because his hemoglobin keeps dropping and which seems to me rather worrisome. My tentative plan is provided there is no more chest discomfort and no further events occur to let him proceed with urologic instrumentation later this week. If he should have more pains or if there should be evidence for ischemia or another troponin elevation, then obviously may need to reconsider this approach because his family wished to be pursuing every avenues of intervention if felt necessary.
[2018-04-25] MEDS: ASPIRIN 81 MG CHEW TABLET PO SCH (10:42)
[2018-04-25 12:00] VITALS: BP 137/63
[2018-04-25] MEDS: ENOXAPARIN 30 MG/0.3 ML SYR (J1650) SC SCH (14:21)
--- NOTE | 2018-04-25 14:42 | ECHO ---
DATE OF STUDY: 04/24/2018 AGE: 87 GENDER: Male. HEIGHT: 60 inches. WEIGHT: 169 pounds. BODY SURFACE AREA: 1.91 m2. INPATIENT: U, room 3230. REFERRING PHYSICIAN: Anthony Wilkinson MD INDICATION: Abnormal EKG. MEASUREMENTS 2D MEASUREMENTS: RV - 3.4 cm LV - 4.5 cm Septum 1.2 cm Posterior wall 1.2 cm Aortic root 3.6 cm LA - 4.0 cm LVEF 75% DOPPLER MEASUREMENTS: AV - 1.38 m/s LVOT - 0.85 m/s LVOT diameter - 2.4 cm MV-E 89, A 103, E/A ratio 0.9 Early mitral deceleration time 194 ms E prime 5.7, A prime 10, E/E prime ratio 15.8 PCWP 15 mmHg PV - 0.85 m/s Pulmonary artery acceleration time 120 ms RVSP 29 mmHg IVC - 1.5 cm COMMENTS: Normal sinus rhythm with right bundle branch block. M-mode and two-dimensional echocardiography was performed with pulsed, continuous wave, color flow, and tissue Doppler studies. Borderline concentric left ventricular hypertrophy with hyperkinetic wall motion. Slightly dilated left atrium with impairment of LV diastolic function and current estimated mean left atrial pressure slightly elevated. Normal right heart chamber sizes and motion with current estimated pulmonary arterial pressure upper limits of normal. Normal IVC size and collapse. Mild aortic valvular sclerosis without stenosis and only trace insufficiency. Aortic root size upper limits of normal. Mild mitral annular calcification without inflow tract obstruction and mild insufficiency. No apparent intracardiac mass or pericardial effusion.
--- NOTE | 2018-04-25 15:45 | IPNPDOC ---
Assessment/Plan Date Seen The patient was seen on 04/25/18. Patient Summary This is an 87 y/o M admitted for OSORIO likely due to urinary retention, kidney stones, MRSA bacteremia, and a possible NSTEMI. I reviewed his CT. There is minimal hydro on the right if any. His Cr improved and his flank pain went away w/ catheter placement, indicating urinary retention was the likely cause. I do not think he needs to treatment for his stones at this time. The family expressed serious concern about sending him home w/ a catheter when he is ready for discharge as he went home w/ one before and pulled it out. While here in the hospital he has been constantly tugging on the catheter. It is possible that his urinary retention is due to a recurrence of a urethral stricture. I discussed w/ his family taking him to the OR for cystoscopy w/ direct vision internal urethrotomy to treat a possible recurrent stricture and hopefully get him out of retention. They would like to do this. I discussed w/ Dr. Dorantes and he feels that the patient can proceed w/ this tomorrow. Plan/VTE VTE Prophylaxis Ordered?: Yes VTE Exclusion Mechanical Proph: N/A:VTE Prophy Ordered VTE Exclusion Pharmacological: N/A:VTE Prophy Ordered Plan/Urinary Catheter Reason for insertion/continuin: Acute obstruct/retention Plan - keep catheter to gravity drainage - plan OR tomorrow for cystoscopy, DVIU - hold lovenox tomorrow - NPO at midnight Subjective Review oF Systems Chief Complaint The patient is a 87-year-old male admitted with a reason for visit of Osorio, Fever, Obstructive Uropathy. Events since Last Encounter Patient denies pain at this time. Per his family, he has been tugging on his catheter on and off. Objective Physical Examination General Exam: Cooperative Chest Exam: Normal air movement Heart Exam: Positive: Rate Normal Skin Exam: Nl turgor and temperature Other physical findings catheter in place, draining clear urine Vital Signs/I&O Vital Signs Date Time Temp Pulse Resp B/P (MAP) Pulse Ox O2 Delivery O2 Flow Rate FiO2 04/25/18 12:00 99.7 71 20 137/63 (87) 94 04/22/18 23:38 Room Air I&O- Last 24 Hours up to 6 AM 04/25/18 06:00 Intake Total 1565 ml Output Total 800 ml Balance 765 ml Laboratory Data Labs 24H Laboratory Tests 2 04/24/18 19:17: Vancomycin Level Trough 12.1 04/24/18 21:39: Troponin I 1.09H 04/25/18 06:01: Troponin I 0.94H, Immature Granulocyte % (Auto) 0.4, White Blood Count 10.9H, Red Blood Count 2.41L, Hemoglobin 7.4L, Hematocrit 22.5L, Mean Corpuscular Volume 93.4, Mean Corpuscular Hemoglobin 30.7, Mean Corpuscular Hemoglobin Concent 32.9, Red Cell Distribution Width 13.4, Platelet Count 271, Neutrophils (%) (Auto) 78.7H, Lymphocytes (%) (Auto) 11.4L, Monocytes (%) (Auto) 8.8H, Eosinophils (%) (Auto) 0.5, Basophils (%) (Auto) 0.2, Neutrophils # (Auto) 8.6H, Lymphocytes # (Auto) 1.3L, Monocytes # (Auto) 1.0H, Eosinophils # (Auto) 0.1, Basophils # (Auto) 0.0, Nucleated Red Blood Cells % (auto) 0.0, Anion Gap 7L, Glomerular Filtration Rate > 60.0, Blood Urea Nitrogen 20H, Creatinine 1.12, Sodium Level 137, Potassium Level 3.2L, Chloride Level 105, Carbon Dioxide Level 25, Calcium Level 7.9L, Aspartate Amino Transf (AST/SGOT) 90H, Alanine Aminotransferase (ALT/SGPT) 104H, Alkaline Phosphatase 65, Total Bilirubin 0.2, Total Protein 5.7L, Albumin 1.9L, Magnesium Level 1.6L, Albumin/Globulin Ratio 0.50L 04/25/18 14:00: Troponin I 0.94H CBC/BMP Laboratory Tests 04/25/18 06:01 Red Blood Count 2.41 L, Mean Corpuscular Volume 93.4, Mean Corpuscular Hemoglobin 30.7, Mean Corpuscular Hemoglobin Concent 32.9, Red Cell Distribution Width 13.4, Neutrophils (%) (Auto) 78.7 H, Lymphocytes (%) (Auto) 11.4 L, Monocytes (%) (Auto) 8.8 H, Eosinophils (%) (Auto) 0.5, Basophils (%) (Auto) 0.2, Neutrophils # (Auto) 8.6 H, Lymphocytes # (Auto) 1.3 L, Monocytes # (Auto) 1.0 H, Eosinophils # (Auto) 0.1, Basophils # (Auto) 0.0, Calcium Level 7.9 L, Aspartate Amino Transf (AST/SGOT) 90 H, Alanine Aminotransferase (ALT/SGPT) 104 H, Alkaline Phosphatase 65, Total Bilirubin 0.2, Total Protein 5.7 L, Albumin 1.9 L Microbiology Microbiology 04/23/18 Blood Culture - Preliminary, Resulted 04/22/18 Blood Culture - Final, Complete Staphylococcus Aureus BARBARA GRANADO MD Apr 25, 2018 15:45
[2018-04-25 16:00] VITALS: BP 142/65
--- NOTE | 2018-04-25 16:32 | IPNPDOC ---
Text Note Date of Service The patient was seen on 04/25/18. NOTE Subjective: Patient was seen and examined at the bedside. . Currently, patient is no complaints. Denies any nausea, vomiting, abdominal pain, constipation, diarrhea. He does not fully catheter in place. He denies any chest pain, shortness breath or palpitations. Objective: Vitals (See below) General: Lying in bed, no acute distress, comfortable, Awake / Alert HEENT: NC, AT CVS: RRR, +S1S2 Lungs: Fair air entry b/l, -w/r/r Abdomen: Soft, ND, NT Extremities: - Edema, - Calf tenderness Assessment and plan: Obstructive uropathy - possibly 2/2 urethral stricture - No symptoms - Renal function within normal limits - Urinalysis consistent with stone; no evidence of infection - Urology on consultation; will possibly go to OR tomorrow with Dr. Chan; plan for dilation of urethra - Current plan is to have removal of Rose catheter prior to discharge home Gram positive bacteremia - likely 2/2 Staph aureus - etiology unknown - Blood cultures 04/22: Staph aureus - Blood cultures 04/25: Pending - ESR / CRP pending - Dr. Lr on consultation Troponin elevation - possibly 2/2 NSTEMI (Type II) - No complaints of chest pain, SOB or palpitations - Troponin have trended down - EKG without ischemic change - ECHO 04/23: Impaired diastolic function - Ultimately patient may not end up benefiting from CABG / Cardiac catheterization given advanced dementia - however will continue discussion with cardiology - c/w Modified ACS protocol (ASA, Rosuvastatin, Metoprolol,. s/p Lovenox) - Cardiology on consultation; will likely clear for OR on 04/26 DLP - c/w Rosuvastatin Hypothyroidism - c/w Levothyroxine MENDY - c/w Ferrous sulfate B12 deficiency - c/w supplementation Dementia - Currently mentation appears to be at baseline based on discussion with family GI prophylaxis - c/w DVT prophylaxis - c/w TEDs/Sequentials VS,Fishbone, I+O VS, Fishbone, I+O Laboratory Tests 04/25/18 06:01 Red Blood Count 2.41 L, Mean Corpuscular Volume 93.4, Mean Corpuscular Hemoglobin 30.7, Mean Corpuscular Hemoglobin Concent 32.9, Red Cell Distribution Width 13.4, Neutrophils (%) (Auto) 78.7 H, Lymphocytes (%) (Auto) 11.4 L, Monocytes (%) (Auto) 8.8 H, Eosinophils (%) (Auto) 0.5, Basophils (%) (Auto) 0.2, Neutrophils # (Auto) 8.6 H, Lymphocytes # (Auto) 1.3 L, Monocytes # (Auto) 1.0 H, Eosinophils # (Auto) 0.1, Basophils # (Auto) 0.0, Calcium Level 7.9 L, Aspartate Amino Transf (AST/SGOT) 90 H, Alanine Aminotransferase (ALT/SGPT) 104 H, Alkaline Phosphatase 65, Total Bilirubin 0.2, Total Protein 5.7 L, Albumin 1.9 L Vital Signs Date Time Temp Pulse Resp B/P (MAP) Pulse Ox O2 Delivery O2 Flow Rate FiO2 04/25/18 12:00 99.7 71 20 137/63 (87) 94 04/22/18 23:38 Room Air I&O- Last 24 Hours up to 6 AM 04/25/18 06:00 Intake Total 1565 ml Output Total 800 ml Balance 765 ml MYA DAVIS MD Apr 25, 2018 16:32
[2018-04-25] MEDS: ACETAMINOPHEN TAB 650MG DOSE (2X325MG) PO PRN ×2 (17:05→20:33)
[2018-04-25 20:00] VITALS: BP 142/66
[2018-04-25] MEDS: RAMELTEON 8 MG TAB (ROZEREM) PO SCH (20:33)
[2018-04-25] MEDS: CYANOCOBALAMIN 500 MCG TAB PO SCH (20:33)
[2018-04-25] MEDS: SENOKOT S TAB PO SCH (20:33)
[2018-04-25] MEDS: FERROUS SULFATE 325MG TAB PO SCH (20:34)
[2018-04-25 23:59] VITALS: BP 152/69
[2018-04-26] VITALS (12 sets, daily range): BP systolic 135–169; BP diastolic 63–78
[2018-04-26] MEDS: LEVOTHYROXINE 50MCG TABLET (0.05MG) PO SCH (05:13)
[2018-04-26 06:20] LABS: BASO % 0.1 % (0.0-1.0); EOS # 0.2 10^3/uL (0.0-0.50); EOS % 2.3 % (0.0-3.0); HEMATOCRIT 21.8 % (42.0-52.0); LYMPH # 1.3 10^3/uL (1.5-4.5); LYMPH % 13.3 % (24.0-44.0); MEAN CORPUSCULAR HEMOGLOBIN 30.2 pg (27.0-33.0); MEAN CORPUSCULAR HGB CONC 32.1 g/dl (32.0-36.5); MONO # 0.9 10^3/uL (0.0-0.8); MONO % 9.4 % (0.0-5.0); NEUTROPHILS # 7.2 10^3/uL (1.8-7.7); NEUTROPHILS % 74.3 % (36.0-66.0); PLATELET COUNT, AUTOMATED 268 10^3/uL (150-450); RED BLOOD COUNT 2.32 10^6/uL (4.30-6.10); WHITE BLOOD COUNT 9.7 10^3/uL (4.0-10.0)
[2018-04-26 06:33] LABS: INR 1.21; PROTHROMBIN TIME 15.5 SECONDS (12.1-14.4)
[2018-04-26 06:34] LABS: PARTIAL THROMBOPLASTIN TIME 41.2 SECONDS (25.4-37.6)
[2018-04-26 06:47] LABS: ALBUMIN 1.8 GM/DL (3.2-5.2); ALT/SGPT 63 U/L (12-78); BILIRUBIN,TOTAL 0.2 MG/DL (0.2-1.0); BLOOD UREA NITROGEN 14 MG/DL (7-18); CALCIUM LEVEL 7.6 MG/DL (8.8-10.2); CARBON DIOXIDE LEVEL 24 MEQ/L (21-32); CHLORIDE LEVEL 106 MEQ/L (98-107); CREATININE FOR GFR 1.03 MG/DL (0.70-1.30); GLOMERULAR FILTRATION RATE > 60.0 (>35); GLUCOSE, FASTING 117 MG/DL (70-100); MAGNESIUM LEVEL 1.6 MG/DL (1.8-2.4); POTASSIUM SERUM 2.7 MEQ/L (3.5-5.1); SODIUM LEVEL 138 MEQ/L (136-145); TOTAL PROTEIN 5.4 GM/DL (6.4-8.2)
[2018-04-26] MEDS ORDERED: POTASSIUM CHLORIDE 10 MEQ SR TABLET PO ONE ×2 (07:00→08:30)
[2018-04-26] MEDS: NS 1,000 ML IV SCH (07:47)
[2018-04-26 07:57] LABS: C REACTIVE PROTEIN QUANTITATIV 8.47 MG/DL (0.00-0.30)
[2018-04-26] MEDS ORDERED: MAG SULF 1GM/100ML (MAG RUN) 1 GM in APPROPRIATE DILUENT 1 EA IV ONE (08:00)
[2018-04-26] MEDS: METOPROLOL TART 12.5 MG PER 1/2 TAB PO SCH ×2 (08:04→20:46)
[2018-04-26] MEDS: ASPIRIN 81 MG CHEW TABLET PO SCH (08:05)
--- NOTE | 2018-04-26 08:59 | IPN ---
DATE: 04/26/2018 Mr. Lopez apparently was agitated and confused last night and did not sleep hardly at all. This morning though he seems to be alert, cooperative and appropriate. He has no specific complaints but apparently repeatedly requires to go home. Numerous family members are at bedside. Vital signs: Blood pressure 145/80, heart rate is in 60s and 70s. His T-max last night was 101.2. His fluid balance yesterday was poorly documented but looks like it was mildly positive, documented weight is 69 kg. He is alert and oriented time one. jugular venous pulse (JVP) is not elevated. Lungs are clear. Heart exam reveals regular rhythm. No gallop, rub is noted. Abdomen is soft. No edema. He still has bandages on both feet. LABORATORY: Hemoglobin 7.0, hematocrit 21.8, platelet count 268,000 and basic metabolic panel sodium 138, potassium 2.7, BUN 14, creatinine 1.0, glucose 117. ASSESSMENT AND PLAN: Mr. Lopez is an 87-year-old man who has dementia and a history of bypass surgery 19 years ago who presented with probably pyelonephritis related to obstructive calculus with medical management he did well and delayed the surgery because he had troponin elevation without any clear-cut chest pain, ischemic abnormalities or on EKG on EKG or wall motion abnormality on echo he was transiently put on Lovenox but his hemoglobin keeps dropping so I have to assume that there is slow GI bleeding. At this point because of ongoing fever it is probably advisable to proceed with surgery, it is a relatively low risk procedure with very low risk of bleeding. It certainly carries a risk but I do not believe that the patient is in shape to undergo any coronary intervention if only because of his progressive anemia. The only question I have is whether the patient should be transfused considering recent MT and I would advocate to get at least 1 unit of packed red blood cells. Otherwise I would continue aspirin, low-dose beta blockers and statin is being done.
[2018-04-26] MEDS: SENOKOT S TAB PO SCH ×2 (09:00→20:47)
[2018-04-26] MEDS ORDERED: ONDANSETRON 4MG/2ML VIAL (J2405) As Ordered ONE (11:28)
[2018-04-26] MEDS ORDERED: PROPOFOL 200 MG/20 ML VIAL As Ordered ONE ×2 (11:28→13:21)
[2018-04-26] MEDS ORDERED: LIDOCAINE 2% INJ 100 MG/5 ML SDV (FOR ANES.) As Ordered ONE (11:28)
[2018-04-26] MEDS ORDERED: fentaNYL 100 MCG/2 ML INJECTION (J3010) As Ordered ONE (11:37)
--- NOTE | 2018-04-26 12:18 | IPNPDOC ---
Assessment/Plan Date Seen The patient was seen on 04/26/18. Patient Summary This is an 87 y/o M admitted for OSORIO likely due to urinary retention, kidney stones, MRSA bacteremia, and a possible NSTEMI. Per discussion w/ the patient's family yesterday the plan is to take him to the OR today for cystoscopy and possible direct vision internal urethrotomy w/ the goal of treating his urinary retention. Informed consent was signed by the patient's . Plan/VTE VTE Prophylaxis Ordered?: Yes VTE Exclusion Mechanical Proph: N/A:VTE Prophy Ordered VTE Exclusion Pharmacological: N/A:VTE Prophy Ordered Plan/Urinary Catheter Reason for insertion/continuin: Acute obstruct/retention Plan - informed consent signed for cystoscopy, DVIU - OR today - NPO until OR - ancef given this morning Subjective Review oF Systems Chief Complaint The patient is a 87-year-old male admitted with a reason for visit of Osorio, Fever, Obstructive Uropathy. Events since Last Encounter No acute events. No pain. Objective Physical Examination General Exam: Cooperative Chest Exam: Normal air movement Heart Exam: Positive: Rate Normal Skin Exam: Nl turgor and temperature Other physical findings catheter draining clear urine Vital Signs/I&O Vital Signs Date Time Temp Pulse Resp B/P (MAP) Pulse Ox O2 Delivery O2 Flow Rate FiO2 04/26/18 08:04 65 145/67 04/26/18 08:00 99.6 20 94 04/22/18 23:38 Room Air I&O- Last 24 Hours up to 6 AM 04/26/18 06:00 Intake Total 1725 ml Output Total 1375 ml Balance 350 ml Laboratory Data Labs 24H Laboratory Tests 2 04/25/18 14:00: Troponin I 0.94H 04/25/18 15:48: Erythrocyte Sedimentation Rate 72H, C-Reactive Protein, Quantitative 10.20H 04/26/18 06:05: C-Reactive Protein, Quantitative 8.47H, Immature Granulocyte % (Auto) 0.6, White Blood Count 9.7, Red Blood Count 2.32L, Hemoglobin 7.0L, Hematocrit 21.8L, Mean Corpuscular Volume 94.0, Mean Corpuscular Hemoglobin 30.2, Mean Corpuscular Hemoglobin Concent 32.1, Red Cell Distribution Width 13.7, Platelet Count 268, Neutrophils (%) (Auto) 74.3H, Lymphocytes (%) (Auto) 13.3L, Monocytes (%) (Auto) 9.4H, Eosinophils (%) (Auto) 2.3, Basophils (%) (Auto) 0.1, Neutrophils # (Auto) 7.2, Lymphocytes # (Auto) 1.3L, Monocytes # (Auto) 0.9H, Eosinophils # (Auto) 0.2, Basophils # (Auto) 0.0, Nucleated Red Blood Cells % (auto) 0.0, Prothrombin Time 15.5H, Prothromb Time International Ratio 1.21, Activated Partial Thromboplast Time 41.2H, Anion Gap 8, Glomerular Filtration Rate > 60.0, Blood Urea Nitrogen 14, Creatinine 1.03, Sodium Level 138, Potassium Level 2.7*L, Chloride Level 106, Carbon Dioxide Level 24, Calcium Level 7.6L, Aspartate Amino Transf (AST/SGOT) 50H, Alanine Aminotransferase (ALT/SGPT) 63, Alkaline Phosphatase 73, Total Bilirubin 0.2, Total Protein 5.4L, Albumin 1.8L, Magnesium Level 1.6L, Albumin/Globulin Ratio 0.50L 04/26/18 12:05: CBC/BMP Laboratory Tests 04/26/18 06:05 Red Blood Count 2.32 L, Mean Corpuscular Volume 94.0, Mean Corpuscular Hemoglobin 30.2, Mean Corpuscular Hemoglobin Concent 32.1, Red Cell Distribution Width 13.7, Neutrophils (%) (Auto) 74.3 H, Lymphocytes (%) (Auto) 13.3 L, Monocytes (%) (Auto) 9.4 H, Eosinophils (%) (Auto) 2.3, Basophils (%) (Auto) 0.1, Neutrophils # (Auto) 7.2, Lymphocytes # (Auto) 1.3 L, Monocytes # (Auto) 0.9 H, Eosinophils # (Auto) 0.2, Basophils # (Auto) 0.0, Calcium Level 7.6 L, Aspartate Amino Transf (AST/SGOT) 50 H, Alanine Aminotransferase (ALT/SGPT) 63, Alkaline Phosphatase 73, Total Bilirubin 0.2, Total Protein 5.4 L, Albumin 1.8 L Microbiology Microbiology 04/26/18 Blood Culture, Received Pending 04/25/18 Blood Culture, Received Pending 04/23/18 Blood Culture - Preliminary, Resulted Staphylococcus Aureus 04/22/18 Blood Culture - Final, Complete Staphylococcus Aureus BARBARA GRANADO MD Apr 26, 2018 12:18
[2018-04-26 12:39] LABS: BLOOD UREA NITROGEN 15 MG/DL (7-18); CARBON DIOXIDE LEVEL 25 MEQ/L (21-32); CHLORIDE LEVEL 107 MEQ/L (98-107); GLOMERULAR FILTRATION RATE > 60.0 (>35); GLUCOSE, FASTING 113 MG/DL (70-100); MAGNESIUM LEVEL 2.1 MG/DL (1.8-2.4); POTASSIUM SERUM 3.6 MEQ/L (3.5-5.1); SODIUM LEVEL 138 MEQ/L (136-145)
[2018-04-26] MEDS ORDERED: LIDOCAINE 2% 5ML JELLY UROJET As Ordered ONE (12:53)
--- NOTE | 2018-04-26 13:46 | IPNPDOC ---
Text Note Date of Service The patient was seen on 04/26/18. NOTE Subjective: Patient was seen and examined at the bedside. Patient has no complaints currently. His daughter notes that overnight he was anxious to leave. Denies any CP, SOB or palpitations. Denies any N/V, abdominal pain, C/D or dysuria. Objective: Vitals (See below) General: Lying in bed, no acute distress, comfortable, Awake / Alert HEENT: NC, AT CVS: RRR, +S1S2 Lungs: Fair air entry b/l, no evidence of wheezing / rhonchi / rales Abdomen: Soft, ND, non-tender Extremities: no evidence of edema, - Calf tenderness Assessment and plan: Obstructive uropathy - possibly 2/2 urethral stricture - No symptoms - Renal function within normal limits - Urinalysis consistent with stone; no evidence of infection - Urology on consultation; will possibly go to OR today with Dr. Chan; plan for dilation of urethra - Plan is to have removal of Rose catheter prior to discharge home Gram positive bacteremia - likely 2/2 Staph aureus - etiology unknown - Blood cultures 04/22: (2of2) Staph aureus - Blood cultures 04/25: Pending - CRP trending down - c/w Cefazolin; s/p Vancomycin / Zosyn - Dr. Lr on consultation Troponin elevation - possibly 2/2 NSTEMI (Type II) - No complaints of chest pain, SOB or palpitations - Troponin have trended down - EKG without ischemic change - ECHO 04/23: Impaired diastolic function - Ultimately patient may not end up benefiting from CABG / Cardiac catheterization given advanced dementia - however will continue discussion with cardiology - c/w Modified ACS protocol (ASA, Rosuvastatin, Metoprolol, s/p Lovenox) - Cardiology on consultation; Normocytic anemia - likely 2/2 MENDY; possibly 2/2 GI etiology - Will transfuse 1 unit PRBC - Will check stool for occult blood - c/w Ferrous sulfate - Will start Famotine BID; Has been taken off Protonix by ID DLP - c/w Rosuvastatin Hypothyroidism - c/w Levothyroxine B12 deficiency - c/w supplementation Dementia - Currently mentation appears to be at baseline based on discussion with family DVT prophylaxis - c/w TEDs/Sequentials VS,Fishbone, I+O VS, Fishbone, I+O Laboratory Tests 04/26/18 06:05 Red Blood Count 2.32 L, Mean Corpuscular Volume 94.0, Mean Corpuscular Hemoglobin 30.2, Mean Corpuscular Hemoglobin Concent 32.1, Red Cell Distribution Width 13.7, Neutrophils (%) (Auto) 74.3 H, Lymphocytes (%) (Auto) 13.3 L, Monocytes (%) (Auto) 9.4 H, Eosinophils (%) (Auto) 2.3, Basophils (%) (Auto) 0.1, Neutrophils # (Auto) 7.2, Lymphocytes # (Auto) 1.3 L, Monocytes # (Auto) 0.9 H, Eosinophils # (Auto) 0.2, Basophils # (Auto) 0.0, Calcium Level 7.6 L, Aspartate Amino Transf (AST/SGOT) 50 H, Alanine Aminotransferase (ALT/SGPT) 63, Alkaline Phosphatase 73, Total Bilirubin 0.2, Total Protein 5.4 L, Albumin 1.8 L 04/26/18 12:05 Calcium Level 8.0 L Vital Signs Date Time Temp Pulse Resp B/P (MAP) Pulse Ox O2 Delivery O2 Flow Rate FiO2 04/26/18 12:13 99 64 16 146/66 (92) 96 04/22/18 23:38 Room Air I&O- Last 24 Hours up to 6 AM 04/26/18 06:00 Intake Total 1725 ml Output Total 1375 ml Balance 350 ml MYA DAVIS MD Apr 26, 2018 13:46
[2018-04-26] MEDS ORDERED: PERCOCET 5MG/325MG TAB PO PRN (14:15)
[2018-04-26] MEDS ORDERED: fentaNYL 100 MCG/2 ML INJECTION (J3010) IV PRN (14:15)
[2018-04-26] MEDS: FAMOTIDINE 20 MG TAB PO SCH ×2 (16:30→16:44)
[2018-04-26] MEDS: ROSUVASTATIN 10 MG TAB (CRESTOR) PO SCH ×2 (16:30→16:43)
[2018-04-26 16:35] LABS: HEMATOCRIT 27.6 % (42.0-52.0)
[2018-04-26] MEDS: ACETAMINOPHEN TAB 650MG DOSE (2X325MG) PO PRN (16:43)
--- NOTE | 2018-04-26 18:51 | CR ---
DATE OF CONSULTATION: 04/25/2018 Asked to consult by hospitalist for evaluation of Staphylococcus aureus bacteremia. HISTORY OF PRESENT ILLNESS: Mr. Lopez is a pleasant 87-year-old gentleman with Alzheimer's dementia. The patient was brought in by his son because of fever with rigors associated with right-sided flank pain. The patient is not able to give me a good history, but according to the family he was having flank pain, and since he had a previous history of kidney stone taken care of by Dr. Chan about 6 months ago and urethral stricture that needed dilatation, he was brought in with a diagnosis of kidney stone and urinary infection. The patient has been on intravenous (IV) vancomycin and Zosyn. Fever has improved. White count has improved. He had a postvoid residual of 540 mL. The patient was diagnosed with overflow incontinence, and a catheter was placed. Blood cultures, two sets, done on two separate days were positive for methicillin-sensitive Staphylococcus aureus (MSSA). The patient had nausea but no vomiting. No chest pain or palpitations. No cough or shortness of breath. No nausea, vomiting, or diarrhea. CT of the abdomen and pelvis showed a right ureter stone with few small stones that are not causing any obstruction. There was no hydronephrosis. No perinephric stranding to suggest infectious etiology, and his urinalysis was quite benign with negative nitrite, negative leukocyte esterase, and mostly blood with 8 white cells. Urology has been consulted. Dr. Chan is planning to take him to the operating room (OR) tomorrow to see if he is still having problems with his urethral stricture that needs further revision. PAST MEDICAL HISTORY: Significant for: 1. Alzheimer's disease. 2. Prostate cancer. 3. Hyperlipidemia. 4. Coronary artery disease, status post coronary artery bypass graft (CABG) times three. 5. Hypogonadism. 6. Anemia of chronic disease. 7. Hypothyroidism. 8. Kidney stones. 9. Bilateral feet frostbite about 3 weeks ago. The patient walked outside in freezing weather at 5 in the morning and developed frostbite. He follows up with Dr. Callahan. According to family, both feet dressings were just changed by their granddaughter, who is an RN, and will be done tomorrow. They did not want me to undress his feet. PAST SURGICAL HISTORY 1. CABG in 1999. 2. Cholecystectomy. 3. Vasectomy. 4. Kidney stone removal is 2017. 5. Urethral stricture dilatation. SOCIAL HISTORY: He lives with his . His son, Tylor, is his healthcare proxy. He denies alcohol, drug use, or smoking. FAMILY HISTORY: Prostate cancer in father at the age of 69, and mother at 94. ALLERGIES: No known drug allergies. MEDICATIONS: - multivitamin daily - aspirin 325 mg daily - vitamin B12 at 1000 mcg daily - ferrous sulfate 325 mg every other day as needed - levothyroxine 50 mcg daily - rosuvastatin 5 mg by mouth daily - ibuprofen as needed PHYSICAL EXAMINATION: Temperature is 99.8, pulse 75, respirations 18, blood pressure 142/65, oxygen saturation 98% on room air, maximal temperature on admission was 100.3. A healthy-looking elderly gentleman in no acute distress. HEART: Normal S1, S2, distant. No murmurs appreciated. LUNGS: Clear. No wheezes, rales, or rhonchi. ABDOMEN: Soft, nontender. No hepatosplenomegaly. EXTREMITIES: No clubbing, cyanosis, or edema. No calf tenderness. No erythema above the ankle. Both feet are wrapped with Kerlix wraps and could not be examined today, but according to nurses there is no evidence of infection and good granulation tissue. MUSCULOSKELETAL: No lumbosacral tenderness. No hip or joint tenderness with normal range of motion of all joints. NEUROLOGIC: Alert and oriented times three but confused at times. Jokes quite often. Motor strength is normal. Upper and lower extremity strength normal. LABORATORY DATA: White count is 10.9, hemoglobin 7.4, hematocrit 22.5, platelets 271, 78% neutrophils, 11% lymphocytes, 8% monocytes. Sodium 137, potassium 3.2, chloride 105, bicarbonate 25, BUN 20, creatinine 1.12, glucose 118, calcium 7.9, magnesium 1.6. Bilirubin 0.2, AST 90, ALT 104, alkaline phosphatase 65. Troponin 1.2. CRP 10.2. Albumin 1.9. His troponin has peaked to 2.3. Microbiology: Blood cultures April 22 at the 5 p.m. were positive for Staphylococcus aureus, MSSA. Blood cultures on April 23 again have gram-positive cocci in clusters. IMAGING STUDIES: Chest x-ray: No acute infiltrate. It was portable chest. CT abdomen and pelvis shows right uteropelvic junction (UPJ) stone measuring 6 x 8 mm, slightly more proximal, right 9 x 3 mm right renal pelvis calculus. There is no collecting system dilation and no perinephric fluid collection to suggest underlying infection. Bladder ultrasound. No bladder mass or calculus. Bilateral ureteral jets noted. There is significant postvoid residual on April 23, about 467 mL. IMPRESSION: This is an 87-year-old gentleman who was admitted with flank pain associated with fever and chills. The patient was found to have Staphylococcus aureus bacteremia, MSSA. He had also evidence of urinary retention and had a Rose catheter placed. The patient has been on broad-spectrum antibiotics with IV vancomycin and Zosyn with improvement of his symptoms. My concern is that his urinalysis was pretty benign, and his CT is also not suggestive of infectious process. He only had 8 white cells with mostly predominant red blood cells (RBC) at 55, +2 blood. No nitrite or leukocyte esterase. I am just a little leery about blaming the Staphylococcus aureus bacteremia to a urinary source, when his urinalysis, CT, and renal bladder ultrasound are not suggestive of infectious process. Differential would include bacteremia from his feet from the frostbite injury, and I will have to examine these tomorrow. Other possible source would be endocarditis. PLAN: Discontinue IV vancomycin and Zosyn. Switch to IV cefazolin 2 grams every 8 hours. The patient will need IV antibiotics for 2 weeks from negative cultures. Discontinue IV pantoprazole. The patient does not have any reflux or nausea anymore. Case has been discussed with Dr. Chan, who will be taking the patient to the OR for possible urethral dilatation. Followup erythrocyte sedimentation rate (ESR) and C-reactive protein (CRP). Consider transesophageal echocardiogram. Echocardiogram read by Dr. Rockwell on April 24 shows borderline left ventricular hypertrophy (LVH), slightly dilated left atrium, normal inferior vena cava (IVC) size and collapse, mild aortic valve sclerosis without stenosis. No evidence of endocarditis. This was a transthoracic echo.
[2018-04-26] MEDS: CYANOCOBALAMIN 500 MCG TAB PO SCH (20:47)
[2018-04-26] MEDS: RAMELTEON 8 MG TAB (ROZEREM) PO SCH (20:47)
[2018-04-27] VITALS (8 sets, daily range): BP systolic 148–175; BP diastolic 62–75
[2018-04-27] MEDS: ACETAMINOPHEN TAB 650MG DOSE (2X325MG) PO PRN ×2 (00:30→18:22)
[2018-04-27] MEDS: LEVOTHYROXINE 50MCG TABLET (0.05MG) PO SCH (05:19)
[2018-04-27 06:06] LABS: BASO % 0.2 % (0.0-1.0); EOS # 0.3 10^3/uL (0.0-0.50); EOS % 2.3 % (0.0-3.0); HEMATOCRIT 26.2 % (42.0-52.0); HEMOGLOBIN 8.7 g/dl (13.5-17.5); LYMPH % 17.2 % (24.0-44.0); MEAN CORPUSCULAR HEMOGLOBIN 29.9 pg (27.0-33.0); MEAN CORPUSCULAR HGB CONC 33.2 g/dl (32.0-36.5); MONO % 9.1 % (0.0-5.0); NEUTROPHILS % 70.5 % (36.0-66.0); PLATELET COUNT, AUTOMATED 274 10^3/uL (150-450); RED BLOOD COUNT 2.91 10^6/uL (4.30-6.10); WHITE BLOOD COUNT 11.4 10^3/uL (4.0-10.0)
[2018-04-27 06:36] LABS: ALBUMIN 1.7 GM/DL (3.2-5.2); ALT/SGPT 36 U/L (12-78); BILIRUBIN,TOTAL 0.3 MG/DL (0.2-1.0); BLOOD UREA NITROGEN 14 MG/DL (7-18); C REACTIVE PROTEIN QUANTITATIV 8.46 MG/DL (0.00-0.30); CALCIUM LEVEL 7.9 MG/DL (8.8-10.2); CARBON DIOXIDE LEVEL 22 MEQ/L (21-32); CHLORIDE LEVEL 109 MEQ/L (98-107); CREATININE FOR GFR 0.89 MG/DL (0.70-1.30); GLOMERULAR FILTRATION RATE > 60.0 (>35); GLUCOSE, FASTING 113 MG/DL (70-100); MAGNESIUM LEVEL 1.8 MG/DL (1.8-2.4); POTASSIUM SERUM 3.7 MEQ/L (3.5-5.1); SODIUM LEVEL 138 MEQ/L (136-145); TOTAL PROTEIN 5.4 GM/DL (6.4-8.2)
--- NOTE | 2018-04-27 08:24 | IPNPDOC ---
Assessment/Plan Date Seen The patient was seen on 04/27/18. Patient Summary This is an 87 y/o M admitted for OSORIO likely due to urinary retention, kidney stones, MRSA bacteremia, and a possible NSTEMI, POD1 s/p cysto w/ urethral dilation and direct vision internal urethrotomy. His urine is draining clear. Plan/VTE VTE Prophylaxis Ordered?: Yes VTE Exclusion Mechanical Proph: N/A:VTE Prophy Ordered VTE Exclusion Pharmacological: N/A:VTE Prophy Ordered Plan/Urinary Catheter Reason for insertion/continuin: Acute obstruct/retention Plan - keep catheter in today - ok to resume lovenox - if urine remains pink or clearer through tomorrow, we will d/c the catheter in the morning and see if he can void Subjective Review oF Systems Chief Complaint The patient is a 87-year-old male admitted with a reason for visit of Osorio, Fever, Obstructive Uropathy. Events since Last Encounter No acute events o/n. Denies pain. Objective Physical Examination General Exam: Cooperative Chest Exam: Normal air movement Skin Exam: Nl turgor and temperature Other physical findings catheter in place, draining clear urine Vital Signs/I&O Vital Signs Date Time Temp Pulse Resp B/P (MAP) Pulse Ox O2 Delivery O2 Flow Rate FiO2 04/27/18 06:00 98.2 72 18 148/62 (90) 18 04/26/18 14:10 Room Air 04/26/18 13:50 2 I&O- Last 24 Hours up to 6 AM 04/27/18 06:00 Intake Total 825 ml Output Total 600 ml Balance 225 ml Laboratory Data Labs 24H Laboratory Tests 2 04/26/18 12:05: Anion Gap 6L, Glomerular Filtration Rate > 60.0, Blood Urea Nitrogen 15, Creatinine 1.00, Sodium Level 138, Potassium Level 3.6#, Chloride Level 107, Carbon Dioxide Level 25, Calcium Level 8.0L, Magnesium Level 2.1 04/27/18 05:52: Anion Gap 7L, Glomerular Filtration Rate > 60.0, Blood Urea Nitrogen 14, Creatinine 0.89, Sodium Level 138, Potassium Level 3.7, Chloride Level 109H, Carbon Dioxide Level 22, Calcium Level 7.9L, Magnesium Level 1.8, Immature Granulocyte % (Auto) 0.7, White Blood Count 11.4H, Red Blood Count 2.91L, Hemoglobin 8.7L, Hematocrit 26.2L, Mean Corpuscular Volume 90.0, Mean Corpuscular Hemoglobin 29.9, Mean Corpuscular Hemoglobin Concent 33.2, Red Cell Distribution Width 14.5, Platelet Count 274, Neutrophils (%) (Auto) 70.5H, Lymphocytes (%) (Auto) 17.2L, Monocytes (%) (Auto) 9.1H, Eosinophils (%) (Auto) 2.3, Basophils (%) (Auto) 0.2, Neutrophils # (Auto) 8.0H, Lymphocytes # (Auto) 2.0, Monocytes # (Auto) 1.0H, Eosinophils # (Auto) 0.3, Basophils # (Auto) 0.0, Nucleated Red Blood Cells % (auto) 0.0, Aspartate Amino Transf (AST/SGOT) 51H, Alanine Aminotransferase (ALT/SGPT) 36, Alkaline Phosphatase 90, Total Bilirubin 0.3, Total Protein 5.4L, Albumin 1.7L, C-Reactive Protein, Quantitative 8.46H, Albumin/Globulin Ratio 0.46L CBC/BMP Laboratory Tests 04/26/18 12:05 Calcium Level 8.0 L 04/26/18 16:02 04/27/18 05:52 Calcium Level 7.9 L, Red Blood Count 2.91 L, Mean Corpuscular Volume 90.0, Mean Corpuscular Hemoglobin 29.9, Mean Corpuscular Hemoglobin Concent 33.2, Red Cell Distribution Width 14.5, Neutrophils (%) (Auto) 70.5 H, Lymphocytes (%) (Auto) 17.2 L, Monocytes (%) (Auto) 9.1 H, Eosinophils (%) (Auto) 2.3, Basophils (%) (Auto) 0.2, Neutrophils # (Auto) 8.0 H, Lymphocytes # (Auto) 2.0, Monocytes # (Auto) 1.0 H, Eosinophils # (Auto) 0.3, Basophils # (Auto) 0.0, Aspartate Amino Transf (AST/SGOT) 51 H, Alanine Aminotransferase (ALT/SGPT) 36, Alkaline Phosphatase 90, Total Bilirubin 0.3, Total Protein 5.4 L, Albumin 1.7 L Microbiology Microbiology 04/26/18 Blood Culture - Preliminary, Resulted No growth after 24 hours . All specim... 04/25/18 Blood Culture - Preliminary, Resulted No growth after 24 hours . All specim... 04/23/18 Blood Culture - Final, Complete Staphylococcus Aureus 04/22/18 Blood Culture - Final, Complete Staphylococcus Aureus BARBARA GRANADO MD Apr 27, 2018 08:24
--- NOTE | 2018-04-27 08:54 | IPN ---
DATE: 04/27/2018 Mr. Lopez had his urologic procedure yesterday that was fairly uneventful. Today, he has no recollection of it. Denies any pain or difficulty breathing. According to his granddaughter at bedside, there were not issues overnight. PHYSICAL EXAMINATION: He is alert, oriented to one, as usual. Blood pressure 140/62, heart rate has been in the 60s and 70s. He has been afebrile and saturation is 97 to 98%. His fluid balance yesterday was slightly positive. Weight is documented at 69 kg. Jugular venous pressure is not high. Lungs are clear. Good air movement. Heart exam reveals regular rhythm. I do not appreciate gallop or rub. Abdomen is soft, nontender. No peripheral edema. Bandaged both feet. LABORATORY: Basic metabolic panel is essentially normal but for glucose 113. CBC reveals improvement of hemoglobin to 8.7 after blood transfusion, platelets 274 thousand. Microbiology from the and show blood cultures positive for Staphylococcus aureus, methicillin-sensitive. Subsequent blood cultures from and have been negative. ASSESSMENT/PLAN: Mr. Lopez is an 87-year-old man who came with fever, chills and right flank pain. He had has been treated for initially what was felt to be presumptive urinary tract infection (UTI), but eventually Staphylococcus aureus grew from his blood and now there is even endocarditis in differential diagnosis. Cardiology was involved because of a slight troponin elevation without objective evidence for ischemia on ECG and without wall motion abnormalities on echocardiogram. He was treated conservatively with just anticoagulation for three days, but it led to a drop in platelet count, hemoglobin count and it was discontinued and currently is only on aspirin. I do foresee that he will continue purely conservative management with aspirin, statin and beta tamika. As far as the Staphylococcus aureus culture is concerned, I certainly agree that endocarditis needs to be considered in differential diagnosis even though the clinical presentation certainly does not look typical. In my opinion, it is possible that the source is from the frostbite on his feet. If there is a high suspicion, I will be happy to perform transesophageal echocardiogram, even though I am somewhat leery about his options for further management, short of conservative antibiotic administration. CHELY
[2018-04-27] MEDS: SENOKOT S TAB PO SCH ×2 (09:00→22:00)
[2018-04-27] MEDS: ASPIRIN 81 MG CHEW TABLET PO SCH (09:09)
[2018-04-27] MEDS: METOPROLOL TART 12.5 MG PER 1/2 TAB PO SCH ×2 (09:11→21:59)
[2018-04-27] MEDS: FAMOTIDINE 20 MG TAB PO SCH (09:11)
[2018-04-27] MEDS: ROSUVASTATIN 10 MG TAB (CRESTOR) PO SCH (09:12)
[2018-04-27] MEDS: ENOXAPARIN 30 MG/0.3 ML SYR (J1650) SC SCH (09:15)
[2018-04-27] MEDS ORDERED: SLF 3 ML SYR IV PRN (10:45)
--- NOTE | 2018-04-27 15:05 | IPNPDOC ---
Text Note Date of Service The patient was seen on 04/27/18. NOTE Subjective: Patient was seen and examined at the bedside. Patient had no complaints this morning. Denies chest pain, shortness of breath or palpitations. Denies nausea, vomiting, abdominal pain, constipation, diarrhea or discomfort with urination. However, he does have a Rose catheter in place. Objective: Vitals (See below) General: Lying in bed, no acute distress, comfortable, Awake / Alert HEENT: NC, AT CVS: RRR, +S1S2 Lungs: Fair air entry b/l, rotation is without evidence of rhonchi, rales or wheezing Abdomen: Soft, nondistended, without tenderness Extremities: Lower extremities are without any edema, - Calf tenderness Assessment and plan: Obstructive uropathy - possibly 2/2 urethral stricture - s/p dilation (04/26) - No symptoms - Renal function within normal limits - Urinalysis consistent with stone; no evidence of infection - s/p cystoscopy and urethral dilation (04/26) - Urology on consultation; appreciate their input - Plan is to have removal of Rose catheter tomorrow Gram positive bacteremia - likely 2/2 Staph aureus - possibly 2/2 ulceration of feet - Blood cultures 04/22: (2of2) Staph aureus - Blood cultures 04/25: No growth at 24 hours - CRP stable - ECHO 04/23: No evidence of agitation - c/w Cefazolin; s/p Vancomycin / Zosyn - Dr. Lr on consultation; consideration for possible transesophageal echocardiogram Troponin elevation - possibly 2/2 NSTEMI (Type II) - No complaints of chest pain, SOB or palpitations - Troponin have trended down - EKG without ischemic change - ECHO 04/23: Impaired diastolic function, - Ultimately patient may not end up benefiting from CABG / Cardiac catheterization given advanced dementia - however will continue discussion with cardiology - c/w Modified ACS protocol (ASA, Rosuvastatin, Metoprolol, s/p Lovenox) - Cardiology on consultation; Normocytic anemia - likely 2/2 MENDY; possibly 2/2 GI etiology - s/p 1 unit PRBC - Hg has increased higher than expected; will continue to follow - Will check stool for occult blood - c/w Ferrous sulfate - c/w Famotine BID; s/p Protonix DLP - c/w Rosuvastatin Hypothyroidism - c/w Levothyroxine B12 deficiency - c/w supplementation Dementia - Currently mentation appears to be at baseline based on discussion with family DVT prophylaxis - c/w TEDs/Sequentials VS,Fishbone, I+O VS, Fishbone, I+O Laboratory Tests 04/26/18 16:02 04/27/18 05:52 Red Blood Count 2.91 L, Mean Corpuscular Volume 90.0, Mean Corpuscular Hemoglobin 29.9, Mean Corpuscular Hemoglobin Concent 33.2, Red Cell Distribution Width 14.5, Neutrophils (%) (Auto) 70.5 H, Lymphocytes (%) (Auto) 17.2 L, Monocytes (%) (Auto) 9.1 H, Eosinophils (%) (Auto) 2.3, Basophils (%) (Auto) 0.2, Neutrophils # (Auto) 8.0 H, Lymphocytes # (Auto) 2.0, Monocytes # (Auto) 1.0 H, Eosinophils # (Auto) 0.3, Basophils # (Auto) 0.0, Calcium Level 7.9 L, Aspartate Amino Transf (AST/SGOT) 51 H, Alanine Aminotransferase (ALT/SGPT) 36, Alkaline Phosphatase 90, Total Bilirubin 0.3, Total Protein 5.4 L, Albumin 1.7 L Vital Signs Date Time Temp Pulse Resp B/P (MAP) Pulse Ox O2 Delivery O2 Flow Rate FiO2 04/27/18 12:00 98.4 65 18 167/70 (102) 96 04/26/18 14:10 Room Air 04/26/18 13:50 2 I&O- Last 24 Hours up to 6 AM 04/27/18 06:00 Intake Total 825 ml Output Total 600 ml Balance 225 ml MYA DAVIS MD Apr 27, 2018 15:05
[2018-04-27] MEDS: SLF 3 ML SYR IV SCH ×2 (18:21→22:00)
[2018-04-27] MEDS: FERROUS SULFATE 325MG TAB PO SCH (22:00)
[2018-04-27] MEDS: CYANOCOBALAMIN 500 MCG TAB PO SCH (22:00)
[2018-04-27] MEDS: RAMELTEON 8 MG TAB (ROZEREM) PO SCH (22:00)
[2018-04-28 04:11] LABS: BASO % 0.3 % (0.0-1.0); EOS # 0.3 10^3/uL (0.0-0.50); EOS % 2.8 % (0.0-3.0); HEMATOCRIT 26.6 % (42.0-52.0); HEMOGLOBIN 8.9 g/dl (13.5-17.5); LYMPH % 18.7 % (24.0-44.0); MEAN CORPUSCULAR HEMOGLOBIN 30.2 pg (27.0-33.0); MEAN CORPUSCULAR HGB CONC 33.5 g/dl (32.0-36.5); MEAN CORPUSCULAR VOLUME 90.2 fl (80.0-96.0); MONO # 0.9 10^3/uL (0.0-0.8); MONO % 8.4 % (0.0-5.0); NEUTROPHILS # 7.4 10^3/uL (1.8-7.7); NEUTROPHILS % 69.1 % (36.0-66.0); PLATELET COUNT, AUTOMATED 303 10^3/uL (150-450); RED BLOOD COUNT 2.95 10^6/uL (4.30-6.10); WHITE BLOOD COUNT 10.7 10^3/uL (4.0-10.0)
[2018-04-28 04:37] LABS: ALBUMIN 1.7 GM/DL (3.2-5.2); ALT/SGPT 25 U/L (12-78); BILIRUBIN,TOTAL 0.2 MG/DL (0.2-1.0); BLOOD UREA NITROGEN 12 MG/DL (7-18); C REACTIVE PROTEIN QUANTITATIV 7.36 MG/DL (0.00-0.30); CALCIUM LEVEL 7.8 MG/DL (8.8-10.2); CARBON DIOXIDE LEVEL 24 MEQ/L (21-32); CHLORIDE LEVEL 105 MEQ/L (98-107); CREATININE FOR GFR 0.87 MG/DL (0.70-1.30); GLOMERULAR FILTRATION RATE > 60.0 (>35); GLUCOSE, FASTING 102 MG/DL (70-100); MAGNESIUM LEVEL 1.7 MG/DL (1.8-2.4); POTASSIUM SERUM 3.4 MEQ/L (3.5-5.1); SODIUM LEVEL 137 MEQ/L (136-145); TOTAL PROTEIN 5.6 GM/DL (6.4-8.2)
[2018-04-28 05:30] VITALS: BP 166/72
[2018-04-28] MEDS: LEVOTHYROXINE 50MCG TABLET (0.05MG) PO SCH (05:34)
[2018-04-28] MEDS: SLF 3 ML SYR IV SCH ×3 (05:34→21:21)
[2018-04-28 08:00] VITALS: BP 155/70
[2018-04-28] MEDS: METOPROLOL TART 12.5 MG PER 1/2 TAB PO SCH ×2 (09:59→21:22)
[2018-04-28] MEDS: ASPIRIN 81 MG CHEW TABLET PO SCH (09:59)
[2018-04-28] MEDS: FAMOTIDINE 20 MG TAB PO SCH (09:59)
[2018-04-28] MEDS: SENOKOT S TAB PO SCH ×2 (09:59→21:20)
[2018-04-28] MEDS: ROSUVASTATIN 10 MG TAB (CRESTOR) PO SCH (09:59)
[2018-04-28] MEDS: ENOXAPARIN 30 MG/0.3 ML SYR (J1650) SC SCH (10:00)
--- NOTE | 2018-04-28 13:15 | IPNPDOC ---
Text Note Date of Service The patient was seen on 04/28/18. NOTE Subjective: Patient was seen and examined at the bedside. Patient no new complaints. Denies any chest pain or palpitations. Has been eating breakfast. Has not experienced cough. Denies any constipation or diarrhea. Denies any abdominal pain. Plan is for Rose catheter removal for voiding trial today. Objective: Vitals (See below) General: Lying in bed, no acute distress, comfortable, Awake / Alert HEENT: NC, AT CVS: RRR, +S1S2 Lungs: Fair air entry b/l, auscultation without evidence of rhonchi, rales or wheezing Abdomen: Abdomen is soft, nontender and nondistended Extremities: Lower extremities don't reveal edema, - Calf tenderness Assessment and plan: Obstructive uropathy - possibly 2/2 urethral stricture - s/p dilation (04/26) - No symptoms - Renal function within normal limits - Urinalysis consistent with stone; no evidence of infection - s/p cystoscopy and urethral dilation (04/26) - Urology on consultation; appreciate their input - Plan for voiding trial today with urology Gram positive bacteremia - 2/2 Staph aureus - possibly 2/2 ulceration of feet - Blood cultures 04/22: (2of2) Staph aureus - Blood cultures 04/25: No growth at 48 hours - CRP stable - ECHO 04/23: No evidence of agitation - c/w Cefazolin; s/p Vancomycin / Zosyn - Discussed with the Dr. Siddiqi; will be going for transesophageal echocardiogram on Tuesday for evaluation of vegetations - Dr. Lr on consultation; after RENETTA duration of antibiotics will be determined Troponin elevation - possibly 2/2 NSTEMI (Type II) - No complaints of chest pain, SOB or palpitations - Troponin have trended down - EKG without ischemic change - ECHO 04/23: Impaired diastolic function, - Ultimately patient may not end up benefiting from CABG / Cardiac catheterization given advanced dementia - however will continue discussion with cardiology - c/w Modified ACS protocol (ASA, Rosuvastatin, Metoprolol, s/p Lovenox) - Cardiology on consultation Normocytic anemia - likely 2/2 MENDY; possibly 2/2 GI etiology - s/p 1 unit PRBC - Hg appears stable - Occult blood negative - c/w Ferrous sulfate - c/w Famotine BID; s/p Protonix DLP - c/w Rosuvastatin Hypothyroidism - c/w Levothyroxine B12 deficiency - c/w supplementation Dementia - Currently mentation appears to be at baseline based on discussion with family DVT prophylaxis - c/w TEDs/Sequentials VS,Fishbone, I+O VS, Fishbone, I+O Laboratory Tests 04/28/18 03:20 Red Blood Count 2.95 L, Mean Corpuscular Volume 90.2, Mean Corpuscular Hemoglobin 30.2, Mean Corpuscular Hemoglobin Concent 33.5, Red Cell Distribution Width 14.5, Neutrophils (%) (Auto) 69.1 H, Lymphocytes (%) (Auto) 18.7 L, Monocytes (%) (Auto) 8.4 H, Eosinophils (%) (Auto) 2.8, Basophils (%) (Auto) 0.3, Neutrophils # (Auto) 7.4, Lymphocytes # (Auto) 2.0, Monocytes # (Auto) 0.9 H, Eosinophils # (Auto) 0.3, Basophils # (Auto) 0.0, Calcium Level 7.8 L, A spartate Amino Transf (AST/SGOT) 44 H, Alanine Aminotransferase (ALT/SGPT) 25, Alkaline Phosphatase 103, Total Bilirubin 0.2, Total Protein 5.6 L, Albumin 1.7 L Vital Signs Date Time Temp Pulse Resp B/P (MAP) Pulse Ox O2 Delivery O2 Flow Rate FiO2 04/28/18 09:59 70 155/70 04/28/18 08:00 98.2 20 92 04/26/18 14:10 Room Air 04/26/18 13:50 2 I&O- Last 24 Hours up to 6 AM 04/28/18 06:00 Intake Total 620 ml Output Total 700 ml Balance -80 ml MYA DAVIS MD Apr 28, 2018 13:15
[2018-04-28] MEDS ORDERED: POTASSIUM CHLORIDE 10 MEQ SR TABLET PO ONE (14:00)
[2018-04-28 16:00] VITALS: BP 155/68
--- NOTE | 2018-04-28 16:00 | RO ---
DATE OF PROCEDURE: 04/26/2018 PREPROCEDURE DIAGNOSIS: Urinary retention. POSTPROCEDURE DIAGNOSIS: Urinary retention, bladder neck contracture, urethral stricture. PROCEDURE: Cystoscopy, Transurethral Incision of the Bladder Neck, Urethral Dilation SURGEON: Kenneth Chan MD SPANISH INTERPRETER/TRANSLATOR: None. ANESTHESIA: Monitored anesthesia care (MAC). OPERATIVE INDICATIONS: This is an 87-year-old male admitted with acute kidney injury likely due to urinary retention. He also has a history of a bladder neck contracture in the past. He was brought to the operating room today for above-listed procedure. DESCRIPTION OF PROCEDURE: The patient was brought to the operating room where MAC anesthesia was administered. Prophylactic antibiotics had already been infused. He was then placed in dorsal lithotomy position, and prepped and draped in the usual sterile fashion. At this point, a rigid cystoscope was inserted into the urethral meatus, and of note, in the mid pendulous urethra there was a mild urethral stricture. I was able to advance the cystoscope past that area in towards the bladder. At the level of the bladder neck, there was a moderate bladder neck contracture. At this point, the cystoscope was taken out and exchanged for a resectoscope. I tried to advance the resectoscope in using the visualize obturator but due to the urethral stricture it would not advance. I therefore dilated up the urethral stricture to 28-Pashto using curved metal sounds. Once that was done, I was able to get the resectoscope in and towards the level of the bladder. Of note, the bladder was examined and no abnormality was seen except for very small stone fragments. At this point, I used a Huang knife to incise the bladder neck contracture at 5, 7 and 12 o'clock. I kept doing this until the bladder neck was wide open. I did cauterize small bleeders. Once that was done, a wire was advanced into the bladder and the scope was removed. I then advanced an 18-Pashto Bayard tip catheter over the wire into the bladder. The wire was removed and the balloon was filled with 10 mL of sterile water. The catheter was connected to gravity drainage. This marked conclusion of the procedure. The patient was then taken out of dorsal lithotomy position, awakened from anesthesia and transported to the recovery room in stable condition. Estimated blood loss was 5 mL. Complications: None. Specimens: None. Plan: The patient will go up to the regular nursing floor and we will remove his catheter and do a voiding trial before he goes home. CHELY
[2018-04-28] MEDS ORDERED: MAG SULF 1GM/100ML (MAG RUN) 1 GM in APPROPRIATE DILUENT 1 EA IV ONE (17:15)
[2018-04-28 20:00] VITALS: BP 151/67
[2018-04-28] MEDS: RAMELTEON 8 MG TAB (ROZEREM) PO SCH (21:20)
[2018-04-28] MEDS: CYANOCOBALAMIN 500 MCG TAB PO SCH (21:20)
--- NOTE | 2018-04-28 23:37 | IPN ---
DATE: 04/27/2018 Mr. Lopez seems to be doing well. He has no new complaints. The patient had a fever on 04/22 and recurrent fever on 04/26 up to 101.2. His wounds have been changed to this afternoon by his daughter and pictures were taken with the frostbite injury seems to be healing well. The right foot is a little worse than the left but there is no purulent discharge. LABORATORY DATA: White count 11.4, hemoglobin 8.7, hematocrit 26.2, platelets 274, 70% neutrophils, 17% lymphocytes, 9% monocytes. Sodium 138, potassium 3.7, chloride 109, bicarbonate 22, BUN 14, creatinine 0.89, glucose 113, calcium 7.9, AST 51, ALT 36, alkaline phosphate 90, C-reactive protein (CRP) 8.46 down from 10.2. Erythrocyte sedimentation rate (ESR) 72. Blood cultures were positive for Methicillin-Susceptible Staphylococcus aureus (MSSA) on 04/22 and 04/23, negative on 04/25 and 04/26. MEDICATIONS: IV cefazolin 2 grams every 8 hours. IMPRESSION: 1. Staphylococcus aureus bacteremia. Likely sources could be from wound ulcerations from frostbite injury, although they are clinically improving but that could be a transient bacteremia from their urinary source less likely when his urinalysis had only 8 white cells and he had no evidence of perinephric stranding. The patient doing well on IV cefazolin. I am still concern about endocarditis and therefore would recommend transesophageal echocardiogram. If negative, the patient will need 2 weeks of IV antibiotics. If positive, then he will need total of 6 weeks. 2. Urethral stricture status post dilatation by Dr. Chan yesterday and doing well. Rose catheter will be removed tomorrow. 3. History of kidney stone. No need for intervention at this time. PLAN: Case has been discussed with Dr. Siddiqi, who will be hopefully scheduling a transesophageal echocardiogram (RENETTA) on him in the next couple days. Will decide on IV antibiotic course after that period.
[2018-04-28 23:59] VITALS: BP 141/61
[2018-04-29] VITALS (7 sets, daily range): BP systolic 130–172; BP diastolic 50–70
[2018-04-29 05:29] LABS: BASO % 0.4 % (0.0-1.0); EOS # 0.3 10^3/uL (0.0-0.50); EOS % 2.7 % (0.0-3.0); HEMATOCRIT 26.3 % (42.0-52.0); HEMOGLOBIN 8.6 g/dl (13.5-17.5); LYMPH # 1.9 10^3/uL (1.5-4.5); LYMPH % 17.2 % (24.0-44.0); MEAN CORPUSCULAR HGB CONC 32.7 g/dl (32.0-36.5); MEAN CORPUSCULAR VOLUME 91.6 fl (80.0-96.0); MONO % 8.9 % (0.0-5.0); NEUTROPHILS # 7.9 10^3/uL (1.8-7.7); NEUTROPHILS % 70.3 % (36.0-66.0); PLATELET COUNT, AUTOMATED 327 10^3/uL (150-450); RED BLOOD COUNT 2.87 10^6/uL (4.30-6.10); WHITE BLOOD COUNT 11.3 10^3/uL (4.0-10.0)
[2018-04-29 05:51] LABS: ALBUMIN 1.8 GM/DL (3.2-5.2); ALT/SGPT 16 U/L (12-78); BILIRUBIN,TOTAL 0.2 MG/DL (0.2-1.0); BLOOD UREA NITROGEN 7 MG/DL (7-18); C REACTIVE PROTEIN QUANTITATIV 5.39 MG/DL (0.00-0.30); CARBON DIOXIDE LEVEL 26 MEQ/L (21-32); CHLORIDE LEVEL 105 MEQ/L (98-107); CREATININE FOR GFR 0.83 MG/DL (0.70-1.30); GLOMERULAR FILTRATION RATE > 60.0 (>35); GLUCOSE, FASTING 108 MG/DL (70-100); MAGNESIUM LEVEL 1.8 MG/DL (1.8-2.4); POTASSIUM SERUM 3.5 MEQ/L (3.5-5.1); SODIUM LEVEL 138 MEQ/L (136-145); TOTAL PROTEIN 5.7 GM/DL (6.4-8.2)
[2018-04-29] MEDS: SLF 3 ML SYR IV SCH ×3 (05:55→20:21)
[2018-04-29] MEDS: LEVOTHYROXINE 50MCG TABLET (0.05MG) PO SCH (05:55)
[2018-04-29] MEDS: FLUTICASONE PROP 0.05% NASAL SPRAY 16 GM (FLONASE) NARES SCH (09:00)
--- NOTE | 2018-04-29 09:17 | IPN ---
DATE: 04/28/2018 Mr. Lopez is doing fairly well. He has no complaints today. No nausea, vomiting, or diarrhea. No abdominal pain, fever, or chills. I saw him during dressing changes. His granddaughter changes his dressings. She is a registered nurse. According to her, the frostbite injuries have markedly improved. Temperature is 98.2, pulse 68, respirations 20, blood pressure 155/70, oxygen saturation 92% on room air. Heart: Normal S1, S2. No murmurs appreciated. Lungs: Diminished breath sounds but clear. Abdomen: Soft, nontender. Extremities: Trace edema. He has open ulcers on both his feet from frostbite injury with good granulation tissue. He has small ulcer on his right 3rd toe, onychomycotic nails. IMPRESSION: Methicillin-sensitive Staphylococcus aureus (MSSA) bacteremia with positive blood cultures on 04/22/2018 and 04/23/2018, currently on intravenous (IV) cefazolin 2 grams every 8 hours. Source of bacteremia could have been from his feet, even though, clinically did not look infected. PLAN: 1. To obtain transesophageal echocardiogram to rule out endocarditis. 2. Frostbite injury, doing well with dressing changes. 3. History of kidney stone and urethral stenosis, status post dilatation. Urinalysis was benign for infection. Continue IV cefazolin for 2 weeks, if negative transesophageal echocardiogram (RENETTA). Other option would be if the patient is ready to go home, that could be arranged as a home IV infusion or IV daptomycin at a dose of 500 mg IV daily. End of therapy would be 05/09/2018 which is 14 days from negative blood cultures. Case has been discussed with Dr. Siddiqi, who saw the patient this morning and will be scheduling a transesophageal echocardiogram early next week, hopefully.
--- NOTE | 2018-04-29 10:54 | IPNPDOC ---
Text Note Date of Service The patient was seen on 04/29/18. NOTE Subjective: Patient was seen and examined at the bedside. , His was sitting at the bedside with him. Currently, he denies any chest pain or difficulty breathing. He has failed a voiding trial yesterday and had his Rose catheter reinserted. He denies nausea, vomiting, abdominal pain, constipation, diarrhea. Objective: Vitals (See below) General: Lying in bed, no acute distress, comfortable, Awake / Alert HEENT: NC, AT CVS: RRR, +S1S2 Lungs: Fair air entry b/l, upon auscultation, there does not appear to be any evidence of wheezing, rhonchi or rales Abdomen: Abdomen is soft, appears nondistended without tenderness Extremities: Lower extremities are without edema, - Calf tenderness Assessment and plan: Obstructive uropathy - possibly 2/2 urethral stricture - s/p dilation (04/26) - No symptoms - Renal function within normal limits - Urinalysis consistent with stone; no evidence of infection - s/p cystoscopy and urethral dilation (04/26) - Urology on consultation; appreciate their input - Patient has failed a voiding trial yesterday and had the Rose catheter reinserted; possibly may require Rose catheter on discharge Gram positive bacteremia - 2/2 Staph aureus - possibly 2/2 ulceration of feet - Blood cultures 04/22: Staph aureus - Blood cultures 04/25: No growth at 48 hours - CRP stable - ECHO 04/23: No evidence of agitation - c/w Cefazolin; s/p Vancomycin / Zosyn - Plan for transesophageal echo on Tuesday with the Dr. Siddiqi - Dr. Lr on consultation; Duration of antibiotics will be determined after RENETTA findings Troponin elevation - possibly 2/2 NSTEMI (Type II) - No complaints of chest pain, SOB or palpitations - Troponin have trended down - EKG without ischemic change - ECHO 04/23: Impaired diastolic function, - Ultimately patient may not end up benefiting from CABG / Cardiac catheterization given advanced dementia - however will continue discussion with cardiology - c/w Modified ACS protocol (ASA, Rosuvastatin, Metoprolol, s/p Lovenox) - Cardiology on consultation Normocytic anemia - likely 2/2 MENDY; possibly 2/2 GI etiology - s/p 1 unit PRBC - Hg remains stable - Occult blood negative; repeat pending - c/w Ferrous sulfate - c/w Famotine BID; s/p Protonix DLP - c/w Rosuvastatin Hypothyroidism - c/w Levothyroxine B12 deficiency - c/w supplementation Dementia - Currently mentation appears to be at baseline based on discussion with family DVT prophylaxis - c/w TEDs/Sequentials VS,Fishbone, I+O VS, Fishbone, I+O Laboratory Tests 04/29/18 04:24 Red Blood Count 2.87 L, Mean Corpuscular Volume 91.6, Mean Corpuscular Hemoglobin 30.0, Mean Corpuscular Hemoglobin Concent 32.7, Red Cell Distribution Width 14.2, Neutrophils (%) (Auto) 70.3 H, Lymphocytes (%) (Auto) 17.2 L, Monocytes (%) (Auto) 8.9 H, Eosinophils (%) (Auto) 2.7, Basophils (%) (Auto) 0.4, Neutrophils # (Auto) 7.9 H, Lymphocytes # (Auto) 1.9, Monocytes # (Auto) 1.0 H, Eosinophils # (Auto) 0.3, Basophils # (Auto) 0.0, Calcium Level 8.0 L, Aspartate Amino Transf (AST/SGOT) 32, Alanine Aminotransferase (ALT/SGPT) 16, Alkaline Phosphatase 99, Total Bilirubin 0.2, Total Protein 5.7 L, Albumin 1.8 L Vital Signs Date Time Temp Pulse Resp B/P (MAP) Pulse Ox O2 Delivery O2 Flow Rate FiO2 04/29/18 08:00 99.1 68 18 158/60 (92) 90 04/28/18 23:59 04/26/18 14:10 Room Air I&O- Last 24 Hours up to 6 AM 04/29/18 06:00 Intake Total 500 ml Output Total 1150 ml Balance -650 ml MYA DAVIS MD Apr 29, 2018 10:54
[2018-04-29] MEDS: ENOXAPARIN 30 MG/0.3 ML SYR (J1650) SC SCH (11:23)
[2018-04-29] MEDS: SENOKOT S TAB PO SCH ×2 (11:23→20:21)
[2018-04-29] MEDS: METOPROLOL TART 12.5 MG PER 1/2 TAB PO SCH ×2 (11:24→20:20)
[2018-04-29] MEDS: FAMOTIDINE 20 MG TAB PO SCH (11:24)
[2018-04-29] MEDS: ASPIRIN 81 MG CHEW TABLET PO SCH (11:24)
[2018-04-29] MEDS: FERROUS SULFATE 325MG TAB PO SCH (20:20)
[2018-04-29] MEDS: CYANOCOBALAMIN 500 MCG TAB PO SCH (20:20)
[2018-04-29] MEDS: ROSUVASTATIN 10 MG TAB (CRESTOR) PO SCH (20:20)
[2018-04-29] MEDS: RAMELTEON 8 MG TAB (ROZEREM) PO SCH (20:21)
[2018-04-29] MEDS: BISACODYL 10 MG SUPP PR SCH (20:21)
[2018-04-30] VITALS (7 sets, daily range): BP systolic 122–150; BP diastolic 50–66
[2018-04-30 06:01] LABS: BASO % 0.2 % (0.0-1.0); EOS # 0.1 10^3/uL (0.0-0.50); EOS % 0.4 % (0.0-3.0); HEMOGLOBIN 8.9 g/dl (13.5-17.5); LYMPH # 1.6 10^3/uL (1.5-4.5); LYMPH % 9.5 % (24.0-44.0); MEAN CORPUSCULAR HEMOGLOBIN 30.3 pg (27.0-33.0); MEAN CORPUSCULAR VOLUME 91.8 fl (80.0-96.0); MONO # 0.9 10^3/uL (0.0-0.8); MONO % 5.1 % (0.0-5.0); NEUTROPHILS # 14.1 10^3/uL (1.8-7.7); PLATELET COUNT, AUTOMATED 358 10^3/uL (150-450); RED BLOOD COUNT 2.94 10^6/uL (4.30-6.10); WHITE BLOOD COUNT 16.8 10^3/uL (4.0-10.0)
[2018-04-30 06:13] LABS: ALBUMIN 1.7 GM/DL (3.2-5.2); ALT/SGPT 10 U/L (12-78); BILIRUBIN,TOTAL 0.2 MG/DL (0.2-1.0); BLOOD UREA NITROGEN 8 MG/DL (7-18); C REACTIVE PROTEIN QUANTITATIV 5.27 MG/DL (0.00-0.30); CALCIUM LEVEL 7.7 MG/DL (8.8-10.2); CARBON DIOXIDE LEVEL 27 MEQ/L (21-32); CHLORIDE LEVEL 103 MEQ/L (98-107); CREATININE FOR GFR 0.75 MG/DL (0.70-1.30); GLOMERULAR FILTRATION RATE > 60.0 (>35); GLUCOSE, FASTING 123 MG/DL (70-100); MAGNESIUM LEVEL 1.7 MG/DL (1.8-2.4); POTASSIUM SERUM 3.3 MEQ/L (3.5-5.1); SODIUM LEVEL 136 MEQ/L (136-145); TOTAL PROTEIN 5.8 GM/DL (6.4-8.2)
[2018-04-30] MEDS: LEVOTHYROXINE 50MCG TABLET (0.05MG) PO SCH (06:25)
[2018-04-30] MEDS: SLF 3 ML SYR IV SCH ×3 (06:31→21:52)
[2018-04-30] MEDS ORDERED: POTASSIUM CHLORIDE 10 MEQ SR TABLET PO ONE (07:30)
[2018-04-30] MEDS: FLUTICASONE PROP 0.05% NASAL SPRAY 16 GM (FLONASE) NARES SCH (09:00)
[2018-04-30] MEDS ORDERED: ENTER DRUG NAME HERE (PATIENT'S OWN MED) INH SCH (09:00)
[2018-04-30] MEDS: BISACODYL 10 MG SUPP PR SCH ×2 (09:00→21:00)
[2018-04-30] MEDS: ASPIRIN 81 MG CHEW TABLET PO SCH (09:00)
[2018-04-30] MEDS: SENOKOT S TAB PO SCH ×2 (09:00→21:52)
[2018-04-30] MEDS: METOPROLOL TART 12.5 MG PER 1/2 TAB PO SCH ×2 (09:00→21:52)
[2018-04-30] MEDS: ENOXAPARIN 30 MG/0.3 ML SYR (J1650) SC SCH (11:12)
[2018-04-30] MEDS ORDERED: NS 1,000 ML IV SCH (11:45)
[2018-04-30 11:59] LABS: ABG BASE EXCESS 5.2 (-2.0-2.0); ABG HCO3 28.3 MEQ/L (22.0-26.0); ABG O2 SATURATION 93.2 % (95.0-99.0); ABG PARTIAL PRESSURE CO2 35.7 mmHg (35.0-45.0); ABG PARTIAL PRESSURE O2 61.5 mmHg (75.0-100.0); ABG STANDARD HCO3 29.1 MEQ/L (22.0-26.0); ABG TOTAL CO2 29.4 MEQ/L (23.0-31.0); ABG pH (ARTERIAL) 7.517 UNITS (7.350-7.450)
[2018-04-30] MEDS ORDERED: VANCOMYCIN HCL 750 MG, VIAL MATE ADAPTER 1 EACH in D5W 250 ML IV SCH (13:00)
[2018-04-30] MEDS ORDERED: PIPERACILLIN/TAZOBACTAM SOD 3.375 GM in D5W MINI-BAG PLUS 50 ML IV SCH (13:00)
[2018-04-30] MEDS ORDERED: FUROSEMIDE 40 MG/4 ML VIAL (J1940) IV ONE (13:00)
--- NOTE | 2018-04-30 13:03 | REP ---
CT CHEST WITHOUT CONTRAST: 04/30/2018. CLINICAL HISTORY: Dyspnea. Abnormal chest x-ray. COMPARISON: AP portable chest 04/30/2018, 04/22/2018. Lung windows from CT abdomen 04/22/2018. FINDINGS: Noncontrast images with soft tissue and lung window settings reviewed for each slice level in both coronal and sagittal reconstructions provided. Patient's arms rest over his upper abdomen. Study represents best effort by technologist, which I appreciate. The retrocardiac left lower lobe radiographic density corresponds to dense consolidative left lower lobe representing acute pneumonia or compressive atelectasis. There is moderate left and slightly smaller right effusion. Left effusion extends to the apex. It measures 4.2 cm in thickness midclavicular line at the level of the behzad, a 2.7 cm thickness for the right pleural effusion at that same level, and it does not extend to the apex. The upper lobes are clear on the right and show some dependent atelectasis on the left. The right middle lobe is clear. Minimal dependent atelectatic and compressive atelectatic changes in the right base. Heart is enlarged with left atrial and ventricular enlargement and some mild right heart enlargement. Coronary artery calcifications are noted. There are sternotomy wires, prior ORIF. Calcified aortic arch with some calcifications at the aortic root and descending aorta, but no gross aneurysm. No pathologic-sized mediastinal or hilar adenopathy. Absence of contrast could certainly obscure hilar nodes. The bone windows show sternotomy wires with a healed sternotomy. The clavicles, AC joints, scapulae, and glenohumeral joints are grossly intact with only mild degenerative change. Visualized ribs are intact. There is thoracic kyphosis and some dextroconvex curvature upper thoracic spine but no acute compression fracture or destructive lesion. In the upper abdomen, that portion of liver and spleen visualized are not enlarged. There are some calcifications in the spleen from old granulomas disease. Clips from prior cholecystectomy are noted. Adrenal glands unremarkable. Upper poles kidneys show no acute finding in the cortex. Appears to be some calcification in an extrarenal pelvis on the right. Calcification at the UPJ is seen at the lower pole, it is not visualized for either kidney. No adrenal lesion. Visualized pancreas grossly intact. No hiatal hernia. IMPRESSION: 1. New since the 04/22/2018 portable chest is extensive consolidative opacity representing infiltrate or compressive atelectasis or both in the left lower lobe with much less atelectatic change or infiltrate in the right base. 2. There are bilateral effusions, moderate on the left, smaller on the right with the left effusion extending to the apex and contributing to the haziness seen on chest x-ray today. 3. Cardiomegaly with left atrial and ventricular enlargement, coronary artery calcifications, and central pulmonary artery prominence suggesting pulmonary artery hypertension, likely on the basis of COPD. 4. Old granulomas calcifications in the spleen and right hilum. No pathologic-sized adenopathy in the mediastinum. Aorta heavily calcified but without aneurysm. 5. UPJ stone as on a CT abdomen pelvis 8 days ago, right side. No hydronephrosis. Upper abdomen unchanged. Electronically Signed by Jordan Kaur MD 04/30/2018 07:07 P
[2018-04-30 13:16] LABS: NT-PRO BNP 12171 PG/ML (<450)
--- NOTE | 2018-04-30 13:43 | IPNPDOC ---
Text Note Date of Service The patient was seen on 04/30/18. NOTE Subjective: This morning patient was seen and examined at the bedside. Patient denied any chest pain or palpitations noted that he was generally feeling fine. Denied any shortness of breath. Denies any constipation, diarrhea; however, nursing staff is indicated that he has been experiencing diarrhea over the last few days. Denied any abdominal pain, nausea, vomiting. Later this afternoon patient began experiencing shortness of breath. Additional imaging and lab work were acquired. Objective: Vitals (See below) General: Lying in bed, no acute distress, comfortable, Awake / Alert HEENT: NC, AT CVS: RRR, +S1S2 Lungs: Poor inspiratory effort. No discernibly rhonchi / wheezing / rales Abdomen: Soft, ND, without tenderness Extremities: Again LE are without edema, - Calf tenderness, Bilateral feet in dressing Assessment and plan: SOB - likely 2/2 decompensated diastolic CHF with pleural effusions, possible 2/ atelectasis, less likely 2/2 HCAP pneumonia - Later this afternoon patient began experiencing shortness of breath - Physical with poor inspiratory effort - Elevated BNP; Lactic acid not elevated - Will check sputum culture - ECHO 04/25: G1DD - CT Chest 04/30: 1. New since the 04/22/2018 portable chest is extensive consolidative opacity representing infiltrate or compressive atelectasis or both in the left lower lobe with much less atelectatic change or infiltrate in the right base. 2. There are bilateral effusions, moderate on the left, smaller on the right with the left effusion extending to the apex and contributing to the haziness seen on chest x-ray today. 3. Cardiomegaly with left atrial and ventricular enlargement, coronary artery calcifications, and central pulmonary artery prominence suggesting pulmonary artery hypertension, likely on the basis of COPD. 4. Old granulomas calcifications in the spleen and right hilum. No pathologic-sized adenopathy in the mediastinum. Aorta heavily calcified but without aneurysm. 5. UVJ stone as on a CT abdomen pelvis 8 days ago, right side. No hydronephrosis. Upper abdomen unchanged. - Strict ins/outs, Daily weights, Head of bed elevation - Will start incentive spirometry - Will give Furosemide 40 IV x 1 dose; will likely need to provide additional diuresis - Will start Vancomycin and Zosyn; DC Cefazolin - Will repeat CXR tomorrow AM Obstructive uropathy - possibly 2/2 urethral stricture - s/p dilation (04/26) - No symptoms - Renal function within normal limits - Urinalysis consistent with stone; no evidence of infection - s/p cystoscopy and urethral dilation (04/26) - Urology on consultation; appreciate their input - Patient has failed a voiding trial yesterday and had the Rose catheter reinserted; possibly may require Rose catheter on discharge Gram positive bacteremia - 2/2 Staph aureus - possibly 2/2 ulceration of feet - Blood cultures 04/22: Staph aureus - Blood cultures 04/25: No growth at 48 hours - CRP stable - ECHO 04/23: No evidence of vegetation - c/w Cefazolin; s/p Vancomycin / Zosyn - Plan for transesophageal ECHO on Tuesday with the Dr. Siddiqi - Dr. Lr on consultation; Duration of antibiotics will be determined after RENETTA findings Troponin elevation - possibly 2/2 NSTEMI (Type II) - No complaints of chest pain, SOB or palpitations - Troponin have trended down - EKG without ischemic change - ECHO 04/23: Impaired diastolic function, - Ultimately patient may not end up benefiting from CABG / Cardiac catheterization given advanced dementia - however will continue discussion with cardiology - c/w Modified ACS protocol (ASA, Rosuvastatin, Metoprolol, s/p Lovenox) - Cardiology on consultation Normocytic anemia - likely 2/2 MENDY; possibly 2/2 GI etiology - s/p 1 unit PRBC - Hg remains stable - Occult blood negative x2 - c/w Ferrous sulfate - Will DC Famotine BID; s/p Protonix DLP - c/w Rosuvastatin Hypothyroidism - c/w Levothyroxine B12 deficiency - c/w supplementation Dementia - Currently mentation appears to be at baseline based on discussion with family DVT prophylaxis - c/w TEDs/Sequentials VS,Fishbone, I+O VS, Fishbone, I+O Laboratory Tests 04/30/18 05:29 Red Blood Count 2.94 L, Mean Corpuscular Volume 91.8, Mean Corpuscular Hemoglobin 30.3, Mean Corpuscular Hemoglobin Concent 33.0, Red Cell Distribution Width 14.2, Neutrophils (%) (Auto) 84.0 H, Lymphocytes (%) (Auto) 9.5 L, Monocytes (%) (Auto) 5.1 H, Eosinophils (%) (Auto) 0.4, Basophils (%) (Auto) 0.2, Neutrophils # (Auto) 14.1 H, Lymphocytes # (Auto) 1.6, Monocytes # (Auto) 0.9 H, Eosinophils # (Auto) 0.1, Basophils # (Auto) 0.0, Calcium Level 7.7 L, Aspartate Amino Transf (AST/SGOT) 27, Alanine Aminotransferase (ALT/SGPT) 10 L, Alkaline Phosphatase 93, Total Bilirubin 0.2, Total Protein 5.8 L, Albumin 1.7 L Vital Signs Date Time Temp Pulse Resp B/P (MAP) Pulse Ox O2 Delivery O2 Flow Rate FiO2 04/30/18 11:03 100.4 75 24 138/60 (86) 92 04/28/18 23:59 04/26/18 14:10 Room Air I&O- Last 24 Hours up to 6 AM 04/30/18 06:00 Intake Total 50 ml Output Total 275 ml Balance -225 ml MYA DAVIS MD Apr 30, 2018 13:43
[2018-04-30] MEDS: KCL 10MEQ/100ML SWI (KRUN) 10 MEQ in APPROPRIATE DILUENT 1 EA IV SCH ×3 (13:48→18:56)
--- NOTE | 2018-04-30 13:53 | REP ---
AP PORTABLE CHEST: 04/30/2018. COMPARISON: [facility] chest 04/22/2018, CT abdomen 04/22/2018. CLINICAL HISTORY: Dyspnea. FINDINGS: Lungs are less well inflated on the previous study. There is now extensive consolidative opacity left lower lobe retrocardiac region obscuring the diaphragm. Haziness in that left hemithorax, suggests concurrent effusion. There is patchy atelectasis or infiltrate at the right base. The right upper lung zone is clear. Sternotomy wires are noted, and there is a calcified aortic arch. Heart size cannot be judged due to the density at the left base and rotation. Vessels in the right upper lobe are seen, slightly engorged compared to the previous study but sharply defined. IMPRESSION: 1. New extensive left base consolidative opacity with air bronchograms suggesting infiltrate and/or atelectasis; haziness throughout that left hemithorax suggests effusion as well. Left CP angle is blunted. 2. Patchy infiltrate, atelectasis at the right base. 3. Prior sternotomy. Calcified aortic arch. Right upper lung zone is clear. Some engorgement of the pulmonary veins in the right upper lobe, but their vessel margins are sharp suggesting venous hypertension only. Electronically Signed by Jordan Kaur MD 04/30/2018 07:07 P
--- NOTE | 2018-04-30 13:56 | REP ---
CT BRAIN WITHOUT CONTRAST: 04/30/2018. CLINICAL HISTORY: Lethargy. COMPARISON: CT 07/17/2017. FINDINGS: Noncontrast soft tissue and bone windows reviewed for each slice level. The lateral ventricles are midline, symmetric, and dilated. Third and fourth ventricles are also proportionately dilated. Diffuse cerebral and cerebellar atrophy noted. The basal ganglia are symmetric and without acute finding. There is heterogeneous low attenuation white matter change scattered in the two hemispheres in periventricular, deep and subcortical regions, unchanged. This represents small vessel ischemic disease. I see no intracranial hemorrhage, acute infarct, mass, mass effect, or edema. No extra-axial fluid collection. Brainstem unremarkable. Cerebellum shows symmetric atrophy. No posterior fossa bleed. Basal cisterns are intact. There are vascular calcifications in the carotid siphons. Visualized mastoids and sinuses are clear. Skull base and calvarium are without fracture or focal lesion. IMPRESSION: 1. Ventriculomegaly and atrophy in proportion, moderately severe and age appropriate. No evidence of acute infarct, intracranial hemorrhage, mass, mass effect, or edema. 2. Mastoids, sinuses, and both the skull base and calvarium included are without fracture or focal lesion. No opacification of sinus air cells. Electronically Signed by Jordan Kaur MD 04/30/2018 07:07 P
[2018-04-30] MEDS ORDERED: MAG SULF 1GM/100ML (MAG RUN) 1 GM in APPROPRIATE DILUENT 1 EA IV ONE (14:00)
[2018-04-30] MEDS ORDERED: PIPERACILLIN/TAZOBACTAM SOD 4.5 GM in D5W MINI-BAG PLUS 50 ML IV SCH (15:00)
[2018-04-30] MEDS ORDERED: VANCOMYCIN HCL 750 MG, VIAL MATE ADAPTER 1 EACH in D5W 250 ML IV ONE (16:00)
[2018-04-30] MEDS ORDERED: VANCOMYCIN HCL 500 MG in D5W MINI-BAG PLUS 100 ML IV ONE (17:00)
[2018-04-30 18:42] LABS: BLOOD UREA NITROGEN 9 MG/DL (7-18); CARBON DIOXIDE LEVEL 30 MEQ/L (21-32); CHLORIDE LEVEL 99 MEQ/L (98-107); CREATININE FOR GFR 1.01 MG/DL (0.70-1.30); GLOMERULAR FILTRATION RATE > 60.0 (>35); GLUCOSE, FASTING 144 MG/DL (70-100); POTASSIUM SERUM 3.5 MEQ/L (3.5-5.1); SODIUM LEVEL 136 MEQ/L (136-145)
[2018-04-30] MEDS: ACETAMINOPHEN TAB 650MG DOSE (2X325MG) PO PRN (21:51)
[2018-04-30] MEDS: ROSUVASTATIN 10 MG TAB (CRESTOR) PO SCH (21:52)
[2018-04-30] MEDS: CYANOCOBALAMIN 500 MCG TAB PO SCH (21:52)
[2018-04-30] MEDS: PIPERACILLIN/TAZOBACTAM SOD 4.5 GM in D5W MINI-BAG PLUS 50 ML IV SCH (22:35)
[2018-05-01] VITALS (7 sets, daily range): BP systolic 114–152; BP diastolic 56–80
[2018-05-01] MEDS: PIPERACILLIN/TAZOBACTAM SOD 4.5 GM in D5W MINI-BAG PLUS 50 ML IV SCH ×4 (03:53→20:57)
[2018-05-01] MEDS: LEVOTHYROXINE 50MCG TABLET (0.05MG) PO SCH (05:14)
[2018-05-01] MEDS: SLF 3 ML SYR IV SCH ×3 (05:14→21:52)
[2018-05-01 05:39] LABS: BASO % 0.2 % (0.0-1.0); EOS # 0.3 10^3/uL (0.0-0.50); EOS % 2.2 % (0.0-3.0); HEMATOCRIT 24.3 % (42.0-52.0); HEMOGLOBIN 8.2 g/dl (13.5-17.5); LYMPH # 2.1 10^3/uL (1.5-4.5); LYMPH % 16.8 % (24.0-44.0); MEAN CORPUSCULAR HEMOGLOBIN 30.1 pg (27.0-33.0); MEAN CORPUSCULAR HGB CONC 33.7 g/dl (32.0-36.5); MEAN CORPUSCULAR VOLUME 89.3 fl (80.0-96.0); MONO # 1.1 10^3/uL (0.0-0.8); MONO % 8.4 % (0.0-5.0); NEUTROPHILS # 9.1 10^3/uL (1.8-7.7); NEUTROPHILS % 71.8 % (36.0-66.0); PLATELET COUNT, AUTOMATED 388 10^3/uL (150-450); RED BLOOD COUNT 2.72 10^6/uL (4.30-6.10); WHITE BLOOD COUNT 12.7 10^3/uL (4.0-10.0)
[2018-05-01 06:04] LABS: ALBUMIN 1.6 GM/DL (3.2-5.2); ALT/SGPT 9 U/L (12-78); BILIRUBIN,TOTAL 0.3 MG/DL (0.2-1.0); BLOOD UREA NITROGEN 12 MG/DL (7-18); C REACTIVE PROTEIN QUANTITATIV 9.94 MG/DL (0.00-0.30); CALCIUM LEVEL 7.8 MG/DL (8.8-10.2); CARBON DIOXIDE LEVEL 31 MEQ/L (21-32); CHLORIDE LEVEL 98 MEQ/L (98-107); CREATININE FOR GFR 0.93 MG/DL (0.70-1.30); GLOMERULAR FILTRATION RATE > 60.0 (>35); GLUCOSE, FASTING 106 MG/DL (70-100); MAGNESIUM LEVEL 1.7 MG/DL (1.8-2.4); POTASSIUM SERUM 3.4 MEQ/L (3.5-5.1); SODIUM LEVEL 134 MEQ/L (136-145); TOTAL PROTEIN 5.6 GM/DL (6.4-8.2)
[2018-05-01] MEDS ORDERED: MAG SULF 1GM/100ML (MAG RUN) 1 GM in APPROPRIATE DILUENT 1 EA IV ONE (07:45)
[2018-05-01] MEDS ORDERED: POTASSIUM CHLORIDE 10 MEQ SR TABLET PO ONE (08:00)
--- NOTE | 2018-05-01 08:32 | IPN ---
DATE: 05/01/2018 Mr. Lopez continues to deny any respiratory problems or chest discomfort. His dominant complaint today is constipation, even though it appears that if anything he has a small amount of loose stools. He does feel pressure in his abdomen though, especially lower abdomen. According to his granddaughter who is at bedside, he did not have a good night. He again was agitated at times and apparently did not get hardly any sleep. This morning, though he is calm. He has no specific complaints other than abdominal pain. Vital Signs: Blood pressure 122/60. Heart rate has been in 60s and 70s. T-max last night was 100. The fluid balance yesterday was reported as negative 700 mL. Weight is 68.3 kg, which is down from yesterday about 1/2 kg. He is alert, oriented times one. His jugular venous pulse (JVP) to me does not look high. Lungs have fair air movement. There are somewhat diminished breath sounds, more on the left than right. I do not appreciate any crackles or wheezing. Heart exam reveals a regular rhythm. No gallop. Abdomen is soft, mildly tender. Extremities have no significant edema. Laboratories: Basic metabolic panel: Sodium 134, potassium 3.4, BUN 12, creatinine 0.9 and glucose 106. Magnesium is 1.7. Albumin is 1.6. CBC: Hemoglobin 8.2, hematocrit 24, platelet count 388,000, and WBC count 12.7. ASSESSMENT/PLAN: Mr. 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 It was initially presumed that he had pyelonephritis, but then after few days he grew Staph aureus from his blood on two separate days. At this point, there is suspicion he might have endocarditis. I was asked by Dr. Lr to perform transesophageal echocardiogram. I talked about the procedure with his and his granddaughter at length. Will tentatively plan to perform the procedure later today. He has been nothing by mouth (n.p.o.) and will be kept like that. I do not believe that he would be a surgical candidate in case he has vegetation, but it will affect the duration of antibiotic treatment. As a separate issue, he has development of bilateral pleural effusions as evidenced by chest x-ray and CT of the chest yesterday. He also has a very high pro BNP. Even though this indicates heart failure, he overall does not seem to me grossly volume overloaded. This unfortunately raises yet another suspicion that he potentially could have endocarditis even though I do not appreciate any obvious heart murmur. Certainly, poor nutrition and hypoalbuminemia contribute. I am starting to be more pessimistic about his prognosis.
[2018-05-01] MEDS: FLUTICASONE PROP 0.05% NASAL SPRAY 16 GM (FLONASE) NARES SCH (09:00)
--- NOTE | 2018-05-01 09:04 | REP ---
Chest two views HISTORY: Pleural effusion Patchy density is present in the left lower lobe consistent with atelectasis or infiltrate. A small left pleural effusion is present. The right lung is clear. The heart is normal in size. The pulmonary vasculature is normal in appearance. The bony structure is intact. IMPRESSION: 1. Left lower lobe atelectasis or infiltrate unchanged compared to the previous study. 2. Small left pleural effusion decreased compared to the previous study. Electronically Signed by Satish Harris MD 05/01/2018 08:56 A
[2018-05-01] MEDS ORDERED: FUROSEMIDE 20 MG/2 ML VIAL (J1940) IV ONE (09:45)
[2018-05-01] MEDS: VANCOMYCIN HCL 750 MG, VIAL MATE ADAPTER 1 EACH in D5W 250 ML IV SCH ×2 (10:06→21:52)
[2018-05-01] MEDS: BISACODYL 10 MG SUPP PR SCH ×2 (10:09→21:00)
[2018-05-01] MEDS: ASPIRIN 81 MG CHEW TABLET PO SCH (10:15)
[2018-05-01] MEDS: SENOKOT S TAB PO SCH ×2 (10:17→21:51)
[2018-05-01] MEDS: ENOXAPARIN 30 MG/0.3 ML SYR (J1650) SC SCH (10:21)
[2018-05-01] MEDS: METOPROLOL TART 12.5 MG PER 1/2 TAB PO SCH ×2 (10:22→21:00)
--- NOTE | 2018-05-01 12:40 | IPNPDOC ---
Text Note Date of Service The patient was seen on 05/01/18. NOTE Subjective: This morning patient was seen and examined at the bedside. . Currently, he notes that his breathing is generally fine. Denies any significant cough, chest pain or palpitations. Denies nausea or vomiting. Does not experience abdominal pain has a Rose catheter in place that has been continued to drain. Denies any diarrhea or constipation. Denies any lower extremity edema Objective: Vitals (See below) General: Lying in bed, no acute distress, comfortable, Awake / Alert HEENT: NC, AT CVS: RRR, +S1S2 Lungs: Poor inspiratory effort. again there are significantly discernible rhonchi / rales / wheezing Abdomen: Soft, ND, remains non-tenderness Extremities: No evidence of LE edema , - Calf tenderness, Bilateral feet in dressing Assessment and plan: s/p SOB - likely 2/2 decompensated diastolic CHF with pleural effusions, possible 2/ atelectasis, less likely 2/2 HCAP pneumonia - Resolution of SOB - Physical with poor inspiratory effort; has been saturating well on room air - Elevated BNP; Lactic acid not elevated - Sputum culture pending - ECHO 04/25: G1DD - CT Chest 04/30: 1. New since the 04/22/2018 portable chest is extensive consolidative opacity representing infiltrate or compressive atelectasis or both in the left lower lobe with much less atelectatic change or infiltrate in the right base. 2. There are bilateral effusions, moderate on the left, smaller on the right with the left effusion extending to the apex and contributing to the haziness seen on chest x-ray today. 3. Cardiomegaly with left atrial and ventricular enlargement, coronary artery calcifications, and central pulmonary artery prominence suggesting pulmonary artery hypertension, likely on the basis of COPD. 4. Old granulomas calcifications in the spleen and right hilum. No pathologic-sized adenopathy in the mediastinum. Aorta heavily calcified but without aneurysm. 5. UVJ stone as on a CT abdomen pelvis 8 days ago, right side. No hydronephrosis. Upper abdomen unchanged. - CXR 05/01: 1. Left lower lobe atelectasis or infiltrate unchanged compared to the previous study. 2. Small left pleural effusion decreased compared to the previous study. - Strict ins/outs, Daily weights, Head of bed elevation - c/w incentive spirometry - s/p Furosemide 40 IV x 1 dose; will provide small dose of Furosemide today - c/w Vancomycin and Zosyn (Day #2); s/p Cefazolin Obstructive uropathy - possibly 2/2 urethral stricture - s/p dilation (04/26) - No symptoms - Renal function within normal limits - Urinalysis consistent with stone; no evidence of infection - s/p cystoscopy and urethral dilation (04/26) - Urology on consultation; appreciate their input - Patient has failed a voiding trial yesterday and had the Rose catheter reinserted; possibly may require Rose catheter on discharge Gram positive bacteremia - 2/2 Staph aureus - possibly 2/2 ulceration of feet - Blood cultures 04/22: Staph aureus - Blood cultures 04/25: No growth at 48 hours - CRP stable - ECHO 04/23: No evidence of vegetation - c/w Cefazolin; s/p Vancomycin / Zosyn - Plan for transesophageal ECHO today with Dr. Siddiqi - Dr. Lr on consultation; Duration of antibiotics will be determined after RENETTA findings Troponin elevation - possibly 2/2 NSTEMI (Type II) - No complaints of chest pain, SOB or palpitations - Troponin have trended down - EKG without ischemic change - ECHO 04/23: Impaired diastolic function, - Ultimately patient may not end up benefiting from CABG / Cardiac catheterization given advanced dementia - however will continue discussion with cardiology - c/w Modified ACS protocol (ASA, Rosuvastatin, Metoprolol, s/p Lovenox) - Cardiology on consultation Normocytic anemia - likely 2/2 MENDY; possibly 2/2 GI etiology - s/p 1 unit PRBC - Hg remains stable - Occult blood negative x2 - c/w Ferrous sulfate - s/p Famotine and Protonix DLP - c/w Rosuvastatin Hypothyroidism - c/w Levothyroxine B12 deficiency - c/w supplementation Dementia - Currently mentation appears to be at baseline based on discussion with family DVT prophylaxis - c/w TEDs/Sequentials VS,Fishbone, I+O VS, Fishbone, I+O Laboratory Tests 04/30/18 18:03 Calcium Level 8.0 L 05/01/18 05:27 Calcium Level 7.8 L, Red Blood Count 2.72 L, Mean Corpuscular Volume 89.3, Mean Corpuscular Hemoglobin 30.1, Mean Corpuscular Hemoglobin Concent 33.7, Red Cell Distribution Width 14.1, Neutrophils (%) (Auto) 71.8 H, Lymphocytes (%) (Auto) 16.8 L, Monocytes (%) (Auto) 8.4 H, Eosinophils (%) (Auto) 2.2, Basophils (%) (Auto) 0.2, Neutrophils # (Auto) 9.1 H, Lymphocytes # (Auto) 2.1, Monocytes # (Auto) 1.1 H, Eosinophils # (Auto) 0.3, Basophils # (Auto) 0.0, Aspartate Amino Transf (AST/SGOT) 24, Alanine Aminotransferase (ALT/SGPT) 9 L, Alkaline Phosphatase 79, Total Bilirubin 0.3, Total Protein 5.6 L, Albumin 1.6 L Vital Signs Date Time Temp Pulse Resp B/P (MAP) Pulse Ox O2 Delivery O2 Flow Rate FiO2 05/01/18 10:22 65 152/66 05/01/18 08:00 98.1 18 92 04/28/18 23:59 04/26/18 14:10 Room Air I&O- Last 24 Hours up to 6 AM 05/01/18 06:00 Intake Total 1555 ml Output Total 2425 ml Balance -870 ml MYA DAVIS MD May 01, 2018 12:40
--- NOTE | 2018-05-01 13:58 | PHACANCOPD ---
PHARMACY VANCOMYCIN DOSING Pt Demographics Demographics Patient Age:87 , Weight:68.300 , Gender: male Adjusted Body Weight Date: 05/01/18, Adjusted Body Weight: Kg Vancomycin Vancomycin indication: HAP Vancomycin Target Ranges: 15-20 mcg/ml Vancomycin Load Y/N: Yes Load Dose Date Time Vancomycin Load Dose: 1250mg Date: 04/30/18 Time: 1900 Vancomycin Dose Date: 05/01/18. Current Vancomycin Dose: [750mg IV Q12H] Intermittent Dosing?: No Labs Micro Microbiology 04/26/18 Blood Culture - Final, Complete NO GROWTH AFTER 5 DAYS 04/25/18 Blood Culture - Final, Complete NO GROWTH AFTER 5 DAYS 04/23/18 Blood Culture - Final, Complete Staphylococcus Aureus 04/22/18 Blood Culture - Final, Complete Staphylococcus Aureus 04/29/18 Stool Occult Blood (ANALY) - Final, Complete 04/27/18 Stool Occult Blood (ANALY) - Final, Complete Creatinine Clearance Date:05/01/18. Est Creatinine Clearance: [52 ml/min]. Assessment and Plan Maintaining Current Dose?: Yes Reason for dose change: No Dose Change Pharmacist Note Pharmacist Note Date: 05/01/18. Pharmacist note: Day #2 empiric vancomycin therapy initiated with a 1250mg loading dose, followed by a maintenance regimen of 750mg IV Q12H (based on previous regimen from 04/23/18) for the treatment of HAP - aiming for a goal trough of 15-20mcg/ml. Scr is stable at 0.93 today from 0.75 yesterday (baseline ~1). The patient is s/p 3 days of IV vanco + IV zosyn that started 04/23/18, and is s/p 6 days of IV ancef that was started for the treatment of MSSA bacteremia. Chest CT from 04/30/18 revealed "New since the 04/22/2018 portable chest is extensive consolidative opacity representing infiltrate or compressive atelectasis or both in the left lower lobe with much less atelectatic change or infiltrate in the right base." MRSA screen is pending. A vancomycin trough level has been scheduled to be drawn tomorrow, 05/02/18, at 0800 - prior to the 4th dose. We will continue to monitor and make dose adjustments if needed. [facility] May 01, 2018 13:58
[2018-05-01] MEDS ORDERED: LIDOCAINE VISCOUS 2% SOLN 15ML UDC As Ordered ONE (15:05)
[2018-05-01] MEDS ORDERED: LIDOCAINE 2% INJ 100 MG/5 ML SDV (FOR ANES.) As Ordered ONE (17:22)
[2018-05-01] MEDS ORDERED: fentaNYL 100 MCG/2 ML INJECTION (J3010) As Ordered ONE (17:22)
[2018-05-01] MEDS ORDERED: PROPOFOL 200 MG/20 ML VIAL As Ordered ONE (17:22)
[2018-05-01] MEDS ORDERED: CETACAINE SPRAY 5GM As Ordered ONE (17:30)
[2018-05-01] MEDS ORDERED: ePHEDrine SULFATE 25 MG/5 ML(5MG/ML) SYRINGE As Ordered ONE (18:08)
[2018-05-01] MEDS ORDERED: PHENYLephrine HCL 500 MCG/5 ML (100MCG/ML) SYRINGE (J2370) As Ordered ONE (18:08)
[2018-05-01] MEDS ORDERED: ONDANSETRON 4MG/2ML VIAL (J2405) IV PRN (18:45)
[2018-05-01] MEDS ORDERED: fentaNYL 100 MCG/2 ML INJECTION (J3010) IV PRN (18:45)
[2018-05-01] MEDS ORDERED: PERCOCET 5MG/325MG TAB PO PRN (18:45)
[2018-05-01] MEDS ORDERED: LR 1,000 ML IV SCH (18:45)
[2018-05-01] MEDS ORDERED: VANCOMYCIN HCL 750 MG, VIAL MATE ADAPTER 1 EACH in D5W 250 ML IV SCH (19:00)
--- NOTE | 2018-05-01 19:48 | T-ECHO ---
DATE OF PROCEDURE: 05/01/2018 REFERRING PHYSICIANS: Dr. Dorantes, Dr. Lr INDICATION: Methicillin-sensitive Staphylococcus aureus (MSSA) bacteremia, suspicion for endocarditis. PROCEDURE: Transesophageal echocardiogram PROCEDURE PERFORMED BY: Dr. Robby Siddiqi ANESTHESIA: Víctor Adams CRNA BRIEF HISTORY: Mr. Lopez is an 87-year-old gentleman who presented to [facility] with fever, chills and flank pain. The initial diagnosis was suspicion for pyelonephritis, but eventually the bacterium identified from his blood stream was methicillin-sensitive Staphylococcus aureus. The results of urinalysis were not supportive of pyelonephritis. Because no obvious source of infection was found, suspicion was raised for possibility of bacterial endocarditis. Transthoracic echocardiogram did not reveal any obvious vegetation, but on recommendation of Dr. Lr, transesophageal echocardiogram was requested. I talked about the procedure with the patient and his granddaughter and his at his bedside. I explained the rationale, potential implications of the findings. His signed appropriate consent. The patient unfortunately is unable to comprehend the implications of the procedure due to advanced dementia. DESCRIPTION OF PROCEDURE: Procedure was performed in the operating room. The patient presented in fasting condition. His posterior pharynx was anesthetized using Xylocaine spray. He was then positioned in left lateral decubitus position. Previously appropriate time-out was taken. When appropriate level of sedation was accomplished, probe was introduced into esophagus and later stomach with minor difficulty. After appropriate images were obtained, it was withdrawn. There were no immediate complications other than mild drop in blood pressure, treated with administration of phenylephrine. Other than that, the patient tolerated the procedure well. FINDINGS: Left ventricle is hyperdynamic. There appears to be some subtle septal wall motion abnormality but overall left ventricular systolic function appears preserved. Right ventricle is also normal systolic function. Both atria appear enlarged. Aortic valve has three leaflets. It is sclerotic but mobility is preserved. No vegetations were seen. By color Doppler imaging, there is no stenosis or insufficiency. Mitral valve appears mildly thickened, mobility is preserved. No vegetations were seen. By color Doppler imaging, there is mild mitral insufficiency. Pulmonic valve appears normal. No pulmonary insufficiency or stenosis is seen. Tricuspid valve was poorly seen from transesophageal views but was well seen from transgastric views and appears intact. No vegetations are visualized. Trace tricuspid insufficiency present. Atrial septum is very thickened but intact based on color Doppler and two-dimensional imaging. There is normal flow in both left-sided and right-sided pulmonary veins. Left atrial appendage is relatively small and free of thrombus and has normal flow pattern. There is prominent atherosclerosis of aortic arch and visualized segment of descending aorta but no thrombi or ulcerated plaques were seen. CONCLUSIONS: 1. Preserved systolic function. 2. Aortic sclerosis but no stenosis or insufficiency. 3. Mild mitral insufficiency. 4. Trace tricuspid insufficiency. 5. No pulmonic insufficiency. 6. Intact atrial septum. 7. Normal flow in both right-sided and left-sided pulmonary veins. 8. Left atrial appendage free of thrombus. 9. Prominent atherosclerosis of aortic arch. COMMENT: Subacute bacterial endocarditis (SBE) prophylaxis is not indicated. No obvious evidence for endocarditis.
[2018-05-01] MEDS ORDERED: VANCOMYCIN HCL 500 MG in D5W MINI-BAG PLUS 100 ML IV SCH (20:00)
[2018-05-01] MEDS: CYANOCOBALAMIN 500 MCG TAB PO SCH (21:51)
[2018-05-01] MEDS: ROSUVASTATIN 10 MG TAB (CRESTOR) PO SCH (21:51)
[2018-05-01] MEDS: FERROUS SULFATE 325MG TAB PO SCH (21:51)
[2018-05-02] MEDS: PIPERACILLIN/TAZOBACTAM SOD 4.5 GM in D5W MINI-BAG PLUS 50 ML IV SCH ×4 (02:41→23:08)
[2018-05-02 04:00] VITALS: BP 139/63
[2018-05-02] MEDS: LEVOTHYROXINE 50MCG TABLET (0.05MG) PO SCH (05:34)
[2018-05-02] MEDS: SLF 3 ML SYR IV SCH ×3 (05:34→22:00)
[2018-05-02 08:00] VITALS: BP 133/63
[2018-05-02 08:35] LABS: BASO % 0.2 % (0.0-1.0); EOS # 0.2 10^3/uL (0.0-0.50); EOS % 1.7 % (0.0-3.0); HEMATOCRIT 25.4 % (42.0-52.0); HEMOGLOBIN 8.5 g/dl (13.5-17.5); LYMPH # 1.8 10^3/uL (1.5-4.5); LYMPH % 13.7 % (24.0-44.0); MEAN CORPUSCULAR HEMOGLOBIN 29.8 pg (27.0-33.0); MEAN CORPUSCULAR HGB CONC 33.5 g/dl (32.0-36.5); MEAN CORPUSCULAR VOLUME 89.1 fl (80.0-96.0); NEUTROPHILS # 9.9 10^3/uL (1.8-7.7); NEUTROPHILS % 75.8 % (36.0-66.0); PLATELET COUNT, AUTOMATED 490 10^3/uL (150-450); RED BLOOD COUNT 2.85 10^6/uL (4.30-6.10)
[2018-05-02 08:55] LABS: ALBUMIN 1.8 GM/DL (3.2-5.2); ALT/SGPT 12 U/L (12-78); BILIRUBIN,TOTAL 0.3 MG/DL (0.2-1.0); BLOOD UREA NITROGEN 10 MG/DL (7-18); C REACTIVE PROTEIN QUANTITATIV 5.99 MG/DL (0.00-0.30); CARBON DIOXIDE LEVEL 30 MEQ/L (21-32); CHLORIDE LEVEL 97 MEQ/L (98-107); CREATININE FOR GFR 0.89 MG/DL (0.70-1.30); GLOMERULAR FILTRATION RATE > 60.0 (>35); GLUCOSE, FASTING 109 MG/DL (70-100); POTASSIUM SERUM 3.4 MEQ/L (3.5-5.1); SODIUM LEVEL 133 MEQ/L (136-145); TOTAL PROTEIN 6.3 GM/DL (6.4-8.2); VANCOMYCIN LEVEL TROUGH 17.8 UG/ML (10.0-20.0)
--- NOTE | 2018-05-02 09:09 | IPN ---
DATE OF SERVICE: 05/02/2018 Mr. Lopez had a RENETTA yesterday afternoon. I did not fortunately find any vegetations. He tolerated the procedure overall well even though he had brief episodes of hypotension, likely related to propofol administration. This morning, he is his usual self. He is alert, oriented only times one. Apparently he had sundowning all night in spite that there really has been somebody from his family with him. Denies any chest pain or shortness of breath. Vital signs: Blood pressure 139/63, heart rate has been in 70s and 90s, sinus rhythm with occasional ectopy. His TM was 99.9. JVP does not look high. Lungs are somewhat diminished over both bases. I do not appreciate crackles or wheezing. Heart exam: Regular rhythm. No gallop. Abdomen: Soft. No peripheral edema. Neurologically he is intact for focal signs, even though due to his dementia the communication is quite limited. LABORATORY DATA: Sodium 134, potassium 3.4, BUN 5, creatinine 0.99, glucose 106, magnesium 1.7, albumin 1.6. ASSESSMENT/PLAN: Mr. Lopez is a 87-year-old man who has fairly advanced dementia who presented with fever and flank pain, eventually grew methicillin-sensitive staph aureus from two separate blood cultures. The source is totally mysterious at this point, but it is most likely related to his frostbite on his feet. The RENETTA was negative yesterday which I think is favorable but I still explained to the family that to eliminate his infection will be challenging process. There have been several other issues. He had a urinary obstruction but after instrumentation it seems to have improved. He still has a kidney stone. The second issue was the fact that he had initial troponin elevation. He did not have any chest pain. He did not have any wall motion abnormalities on echo. In retrospect, believe it may have been related to sepsis. As far as his very high N-terminal proBNP is concerned, he likely has a component of heart failure even though he does not appear grossly volume overloaded. I think it is very exacerbated by his very low albumin level related to inflammatory state and poor oral intake. I still think it is conceivable to consider gentle diuresis. I am going to sign off his care. If you need any further assistance, please do not hesitate to contact me. I am somewhat pessimistic of his overall prognosis mostly on account of the underlying dementia. I spoke about his case with Dr. Wilkinson. [facility]
--- NOTE | 2018-05-02 09:22 | PHACANCOPD ---
PHARMACY VANCOMYCIN DOSING Pt Demographics Demographics Patient Age:87 , Weight:66.500 , Gender: male Adjusted Body Weight Date: 05/01/18, Adjusted Body Weight: Kg Vancomycin Vancomycin indication: HAP Vancomycin Target Ranges: 15-20 mcg/ml Vancomycin Load Y/N: Yes Load Dose Date Time Vancomycin Load Dose: 1250mg Date: 04/30/18 Time: 1900 Vancomycin Dose Date: 05/01/18. Current Vancomycin Dose: [750mg IV Q12H] Intermittent Dosing?: No Labs Micro Microbiology 04/26/18 Blood Culture - Final, Complete NO GROWTH AFTER 5 DAYS 04/25/18 Blood Culture - Final, Complete NO GROWTH AFTER 5 DAYS 04/23/18 Blood Culture - Final, Complete Staphylococcus Aureus 04/22/18 Blood Culture - Final, Complete Staphylococcus Aureus 04/29/18 Stool Occult Blood (ANALY) - Final, Complete 04/27/18 Stool Occult Blood (ANALY) - Final, Complete 05/02/18 MRSA Screen, Received Pending Creatinine Clearance Date:05/01/18. Est Creatinine Clearance: [52 ml/min]. Assessment and Plan Maintaining Current Dose?: No Reason for dose change: No Dose Change Pharmacist Note Pharmacist Note Date: 05/02/18. Pharmacist note:PT trough came back today @ 17.8mcg/ml at 08:00 this morning before the 4th dose. We will continue current dosing at 750mg iv q12 hours. We will continue to monitor and adjust the dose as needed. Date: 05/01/18. Pharmacist note: Day #2 empiric vancomycin therapy initiated with a 1250mg loading dose, followed by a maintenance regimen of 750mg IV Q12H (based on previous regimen from 04/23/18) for the treatment of HAP - aiming for a goal trough of 15-20mcg/ml. Scr is stable at 0.93 today from 0.75 yesterday (baseline ~1). The patient is s/p 3 days of IV vanco + IV zosyn that started 04/23/18, and is s/p 6 days of IV ancef that was started for the treatment of MSSA bacteremia. Chest CT from 04/30/18 revealed "New since the 04/22/2018 portable chest is e xtensive consolidative opacity representing infiltrate or compressive atelectasis or both in the left lower lobe with much less atelectatic change or infiltrate in the right base." MRSA screen is pending. A vancomycin trough level has been scheduled to be drawn tomorrow, 05/02/18, at 0800 - prior to the 4th dose. We will continue to monitor and make dose adjustments if needed. [facility] May 02, 2018 09:22
[2018-05-02] MEDS: SENOKOT S TAB PO SCH ×2 (09:25→21:08)
[2018-05-02] MEDS: METOPROLOL TART 12.5 MG PER 1/2 TAB PO SCH ×2 (09:25→21:08)
[2018-05-02] MEDS: ASPIRIN 81 MG CHEW TABLET PO SCH (09:26)
[2018-05-02] MEDS: ENOXAPARIN 30 MG/0.3 ML SYR (J1650) SC SCH (09:26)
[2018-05-02] MEDS: BISACODYL 10 MG SUPP PR SCH ×2 (09:27→21:09)
[2018-05-02] MEDS: FLUTICASONE PROP 0.05% NASAL SPRAY 16 GM (FLONASE) NARES SCH (09:27)
[2018-05-02] MEDS: VANCOMYCIN HCL 750 MG, VIAL MATE ADAPTER 1 EACH in D5W 250 ML IV SCH ×2 (10:49→21:09)
[2018-05-02 12:00] VITALS: BP 155/70
--- NOTE | 2018-05-02 15:39 | IPNPDOC ---
Date Seen The patient was seen on 05/02/18. Progress Note SUBJECTIVE: Patient is awake and oriented to person he does not remember me he is coming by her daughter who is a registered nurse the patient denies any complaints at this time OBJECTIVE PHYSICAL EXAMINATION: VITAL SIGNS: Please see below. GENERAL: Frail elderly man lying in bed on his left side he is in no acute distress he is laughing and talking HEENT: Cranial nerves appear grossly intact moist mucous membranes CARDIOVASCULAR: S1-S2 regular. RESPIRATORY: Clear to auscultation possibly some diminished breath sounds at the bases. ABDOMINAL: Bowel sounds are present abdomen soft EXTREMITIES: No clubbing cyanosis or edema appreciated LABORATORY DATA, IMAGING STUDIES, MICROBIOLOGY: Please see below. Echocardiogram: 1. Preserved systolic function. 2. Aortic sclerosis but no stenosis or insufficiency. 3. Mild mitral insufficiency. 4. Trace tricuspid insufficiency. 5. No pulmonic insufficiency. 6. Intact atrial septum. 7. Normal flow in both right-sided and left-sided pulmonary veins. 8. Left atrial appendage free of thrombus. 9. Prominent atherosclerosis of aortic arch.. DVT prophylaxis ordered?: Lovenox Assessment and plan: 1. SOB - likely 2/2 decompensated diastolic CHF with pleural effusions versus pneumonia. The patient's fever curve appears to be downtrending clinically the nurse daughter tells me he is improved significantly over the last 48 hours with broadening of his antibiotics for the time being I'll continue with use and order cultures all check a UA as well. I did discuss with Dr. Siddiqi this morning we will continue with low-dose diuresis clinically he is not grossly volume overloaded and both agree. He is on room air breathing comfortably at appears to be close to his baseline at this time 2. Obstructive uropathy - possibly 2/2 urethral stricture - s/p dilation (04/26) appear significantly improved he has no further symptoms his renal function is within normal limits he has since been having some fevers feels more likely related to his respiratory status however I will check a UA given his recent instrumentation and persisting stone neurology help greatly appreciated 3. MSSA bacteremia - 2/2 Staph aureus - possibly 2/2 ulceration of feet related to frostbite. Infectious disease help greatly appreciated no evidence of vegetation duration of therapy as per Dr. milian of infectious disease for now continue with the broad-spectrum narrow as appropriate 4.Troponin elevation - possibly 2/2 NSTEMI (Type II) No complaints of chest pain, SOB or palpitations although the patient is a difficult historian given his dementia he does not have significant EKG changes cardiology help is greatly appreciated he is on aspirin and statin beta tamika he may require an outpatient ischemic evaluation. At this time it appears stable. 5. Normocytic anemia - likely 2/2 MENDY, he received 1 unit of PRBCs hemoglobin remained stable occult for blood is been negative 2 is continued on ferrous sulfate 6. DLP - c/w Rosuvastatin 7. Hypothyroidism - c/w Levothyroxine 8. B12 deficiency - c/w supplementation 9.Dementia -Currently mentation appears to be at baseline, I did have a lengthy discussion with the patient's daughter who is an RN today she tells me that he has declined significantly in the last 2 months I suspect that his dementia is progressing and that his nutritional status is declining with this. I did inform her that although he appears improved today and with the measures taken during this hospitalization overall he feels prognosis is poor and expected to continue to decline moving forward despite best therapies. I did encourage her to have a goals of care discussion and outlining advanced directives with the rest of the family. Disposition: Pending duration of therapy and antibiotic selection likely at least 2 weeks VS, I&O, 24H, Fishbone Vital Signs/I&O Vital Signs Date Time Temp Pulse Resp B/P (MAP) Pulse Ox O2 Delivery O2 Flow Rate FiO2 05/02/18 12:00 99.9 79 16 155/70 (98) 96 05/01/18 18:44 Room Air 04/28/18 23:59 I&O- Last 24 Hours up to 6 AM 05/02/18 06:00 Intake Total 1395 ml Output Total 1700 ml Balance -305 ml Laboratory Data 24H LABS Laboratory Tests 2 05/02/18 08:07: Immature Granulocyte % (Auto) 0.6, White Blood Count 13.0H, Red Blood Count 2.85L, Hemoglobin 8.5L, Hematocrit 25.4L, Mean Corpuscular Volume 89.1, Mean Corpuscular Hemoglobin 29.8, Mean Corpuscular Hemoglobin Concent 33.5, Red Cell Distribution Width 14.3, Platelet Count 490H, Neutrophils (%) (Auto) 75.8H, Lymphocytes (%) (Auto) 13.7L, Monocytes (%) (Auto) 8.0H, Eosinophils (%) (Auto) 1.7, Basophils (%) (Auto) 0.2, Neutrophils # (Auto) 9.9H, Lymphocytes # (Auto) 1.8, Monocytes # (Auto) 1.0H, Eosinophils # (Auto) 0.2, Basophils # (Auto) 0.0, Nucleated Red Blood Cells % (auto) 0.0, Anion Gap 6L, Glomerular Filtration Rate > 60.0, Blood Urea Nitrogen 10, Creatinine 0.89, Sodium Level 133L, Potassium Level 3.4L, Chloride Level 97L, Carbon Dioxide Level 30, Calcium Level 8.0L, Aspartate Amino Transf (AST/SGOT) 25, Alanine Aminotransferase (ALT/SGPT) 12, Alkaline Phosphatase 80, Total Bilirubin 0.3, Total Protein 6.3L, Albumin 1.8L, Magnesium Level 2.0, C-Reactive Protein, Quantitative 5.99H, Albumin/Globulin Ratio 0.40L, Vancomycin Level Trough 17.8 CBC/BMP Laboratory Tests 05/02/18 08:07 Red Blood Count 2.85 L, Mean Corpuscular Volume 89.1, Mean Corpuscular Hemoglobin 29.8, Mean Corpuscular Hemoglobin Concent 33.5, Red Cell Distribution Width 14.3, Neutrophils (%) (Auto) 75.8 H, Lymphocytes (%) (Auto) 13.7 L, Monocytes (%) (Auto) 8.0 H, Eosinophils (%) (Auto) 1.7, Basophils (%) (Auto) 0.2, Neutrophils # (Auto) 9.9 H, Lymphocytes # (Auto) 1.8, Monocytes # (Auto) 1.0 H, Eosinophils # (Auto) 0.2, Basophils # (Auto) 0.0, Calcium Level 8.0 L, Aspartate Amino Transf (AST/SGOT) 25, Alanine Aminotransferase (ALT/SGPT) 12, Alkaline Phosphatase 80, Total Bilirubin 0.3, Total Protein 6.3 L, Albumin 1.8 L Microbiology Microbiology 05/02/18 Blood Culture, Received Pending 04/26/18 Blood Culture - Final, Complete NO GROWTH AFTER 5 DAYS 04/25/18 Blood Culture - Final, Complete NO GROWTH AFTER 5 DAYS 04/23/18 Blood Culture - Final, Complete Staphylococcus Aureus 04/22/18 Blood Culture - Final, Complete Staphylococcus Aureus 04/29/18 Stool Occult Blood (ANALY) - Final, Complete 04/27/18 Stool Occult Blood (ANALY) - Final, Complete 05/02/18 MRSA Screen, Received Pending RYLEY JORDAN MD May 02, 2018 15:39
[2018-05-02 15:43] LABS: APPEARANCE, URINE HAZY (CLEAR); BACTERIA, URINE AUTO 1+ (NEGATIVE); BILIRUBIN, URINE AUTO NEGATIVE (NEGATIVE); BLOOD, URINE BLOOD 3+ (NEGATIVE); COLOR, URINE YELLOW (YELLOW); GLUCOSE, URINE (UA) AUTO NEGATIVE (NEGATIVE); KETONE, URINE AUTO NEGATIVE (NEGATIVE); LEUKOCYTE ESTERASE, URINE AUTO TRACE (NEGATIVE); MUCUS, URINE SMALL (NEGATIVE); NITRITE, URINE AUTO NEGATIVE (NEGATIVE); PROTEIN, URINE AUTO 1+ mg/dL (NEGATIVE); RBC, URINE AUTO TNTC /HPF (0-3); SPECIFIC GRAVITY URINE AUTO 1.019 (1.002-1.035); SQUAMOUS EPITHELIAL CELL UR AU 0 /HPF (0-6); UROBILINOGEN, URINE AUTO 0.2 mg/dL (0.0-2.0); WBC, URINE AUTO 22 /HPF (0-3)
[2018-05-02 16:00] VITALS: BP 138/58
[2018-05-02 20:38] VITALS: BP 140/85
[2018-05-02] MEDS: ROSUVASTATIN 10 MG TAB (CRESTOR) PO SCH (21:07)
[2018-05-02] MEDS: CYANOCOBALAMIN 500 MCG TAB PO SCH (21:08)
[2018-05-02] MEDS: RAMELTEON 8 MG TAB (ROZEREM) PO SCH (23:08)
[2018-05-03] VITALS (7 sets, daily range): BP systolic 126–147; BP diastolic 58–82
[2018-05-03] MEDS: PIPERACILLIN/TAZOBACTAM SOD 4.5 GM in D5W MINI-BAG PLUS 50 ML IV SCH ×2 (03:45→12:21)
[2018-05-03] MEDS: SLF 3 ML SYR IV SCH ×3 (05:44→21:19)
[2018-05-03] MEDS: LEVOTHYROXINE 50MCG TABLET (0.05MG) PO SCH (05:44)
[2018-05-03 05:56] LABS: HEMATOCRIT 24.8 % (42.0-52.0); HEMOGLOBIN 8.1 g/dl (13.5-17.5); MEAN CORPUSCULAR HEMOGLOBIN 29.8 pg (27.0-33.0); MEAN CORPUSCULAR HGB CONC 32.7 g/dl (32.0-36.5); MEAN CORPUSCULAR VOLUME 91.2 fl (80.0-96.0); PLATELET COUNT, AUTOMATED 455 10^3/uL (150-450); RED BLOOD COUNT 2.72 10^6/uL (4.30-6.10)
[2018-05-03 06:08] LABS: BLOOD UREA NITROGEN 8 MG/DL (7-18); CALCIUM LEVEL 8.2 MG/DL (8.8-10.2); CARBON DIOXIDE LEVEL 30 MEQ/L (21-32); CHLORIDE LEVEL 97 MEQ/L (98-107); CREATININE FOR GFR 0.98 MG/DL (0.70-1.30); GLOMERULAR FILTRATION RATE > 60.0 (>35); GLUCOSE, FASTING 99 MG/DL (70-100); POTASSIUM SERUM 3.6 MEQ/L (3.5-5.1); SODIUM LEVEL 133 MEQ/L (136-145)
[2018-05-03] MEDS: BISACODYL 10 MG SUPP PR SCH ×2 (08:55→20:25)
[2018-05-03] MEDS: SENOKOT S TAB PO SCH ×2 (09:00→20:24)
--- NOTE | 2018-05-03 09:16 | REP ---
AP PORTABLE CHEST: 05/03/2018. Comparison: Chest x-ray 05/01/2018, AP chest and CT 04/30/2018. Clinical history: Reassess bilateral effusions and infiltrates. Findings: This semi-erect portable chest show sternotomy wires as before with a calcified tortuous aorta. Retrocardiac density and left lower lobe atelectasis or infiltrates with effusion again seen. This appears slightly worse than on the chest x-ray from 2 days ago. Some venous hypertension suggested. No tanisha edema. The right effusion seen on lateral chest and CT is not visible on the portable chest. Left effusion is same or greater than on the previous PA and lateral chest on the but less severe than on the 04/30/2018 portable chest. No other change. Electronically Signed by Jordan Kaur MD 05/03/2018 09:13 P
[2018-05-03] MEDS: ASPIRIN 81 MG CHEW TABLET PO SCH (09:56)
[2018-05-03] MEDS: ENOXAPARIN 30 MG/0.3 ML SYR (J1650) SC SCH (09:57)
[2018-05-03] MEDS: FUROSEMIDE 40 MG TAB PO SCH (09:57)
[2018-05-03] MEDS: METOPROLOL TART 12.5 MG PER 1/2 TAB PO SCH ×2 (09:57→20:34)
[2018-05-03] MEDS: VANCOMYCIN HCL 750 MG, VIAL MATE ADAPTER 1 EACH in D5W 250 ML IV SCH (09:58)
[2018-05-03] MEDS: FLUTICASONE PROP 0.05% NASAL SPRAY 16 GM (FLONASE) NARES SCH (09:58)
--- NOTE | 2018-05-03 13:48 | IPNPDOC ---
Date Seen The patient was seen on 05/03/18. Progress Note SUBJECTIVE: Patient is awake and oriented to person he he tells me she feels well he has no complaints. He is a copy by his OBJECTIVE PHYSICAL EXAMINATION: VITAL SIGNS: Please see below. GENERAL: Frail elderly man lying in bed on his left side he is in no acute distress he is laughing and speaking in complete sentences HEENT: Cranial nerves appear grossly intact moist mucous membranes CARDIOVASCULAR: S1-S2 regular. RESPIRATORY: Clear to auscultation possibly some diminished breath sounds at the bases. ABDOMINAL: Bowel sounds are present abdomen soft EXTREMITIES: No clubbing cyanosis or edema appreciated LABORATORY DATA, IMAGING STUDIES, MICROBIOLOGY: Please see below. Echocardiogram: 1. Preserved systolic function. 2. Aortic sclerosis but no stenosis or insufficiency. 3. Mild mitral insufficiency. 4. Trace tricuspid insufficiency. 5. No pulmonic insufficiency. 6. Intact atrial septum. 7. Normal flow in both right-sided and left-sided pulmonary veins. 8. Left atrial appendage free of thrombus. 9. Prominent atherosclerosis of aortic arch.. DVT prophylaxis ordered?: Lovenox Assessment and plan: 1. SOB - likely 2/2 decompensated diastolic CHF with pleural effusions versus pneumonia. The patient's fever curve appears to be downtrending clinically he has improved as well. At this time his MRSA screen is negative I will transition him to daptomycin as per infectious diseases previous recommendations I'll avoid going back as of his own as he did appear to decompensate somewhat while on this for several days. We're continuing with gentle diuresis his respiratory status is improved although his I will check a chest x-ray today and it did not appear to be significantly different than previously seen which make suspect that it was secondary to respiratory infection as opposed to decompensated heart failure that causes clinical decline in the days prior to minus reassuming his care. 2. Obstructive uropathy - 2/2 urethral stricture - s/p dilation (04/26) appear significantly improved he has no further symptoms his renal function is within normal limits he has since been having some fevers feels more likely related to his respiratory status however I did check check a UA which is not impressively suggestive of infection. He is not a reliable historian to provide symptoms 3. MSSA bacteremia - 2/2 Staph aureus - possibly 2/2 ulceration of feet related to frostbite. Infectious disease help greatly appreciated no evidence of vegetation duration of therapy to be completed 6 days from now I'll transition him to daptomycin and consider placement of a PICC line tomorrow with possible plan of home with IV antibiotics Tuesday 4.Troponin elevation - possibly 2/2 NSTEMI (Type II) No complaints of chest pain, SOB or palpitations although the patient is a difficult historian given his dementia he does not have significant EKG changes cardiology help is greatly appreciated he is on aspirin and statin beta tamika he may require an outpatient ischemic evaluation. At this time it appears stable. 5. Normocytic anemia - likely 2/2 MENDY, he received 1 unit of PRBCs hemoglobin remained stable occult for blood is been negative 2 is continued on ferrous sulfate 6. DLP - c/w Rosuvastatin 7. Hypothyroidism - c/w Levothyroxine 8. B12 deficiency - c/w supplementation 9.Dementia -Currently mentation appears to be at baseline, I did have a lengthy discussion with the patient's daughter yesterday who is an RN today she tells me that he has declined significantly in the last 2 months I suspect that his dementia is progressing and that his nutritional status is declining with this. I did inform her that although he appears improved and with the measures taken during this hospitalization overall I feel his prognosis is poor and expect him to to continue to decline moving forward despite best therapies. I did encourage her to have a goals of care discussion and outlining advanced directives with the rest of the family. Disposition: Pending home IV antibiotics set up VS, I&O, 24H, Fishbone Vital Signs/I&O Vital Signs Date Time Temp Pulse Resp B/P (MAP) Pulse Ox O2 Delivery O2 Flow Rate FiO2 05/03/18 12:00 98.7 63 16 128/58 (81) 96 05/01/18 18:44 Room Air 04/28/18 23:59 I&O- Last 24 Hours up to 6 AM 05/03/18 06:00 Intake Total 1355 ml Output Total 1125 ml Balance 230 ml Laboratory Data 24H LABS Laboratory Tests 2 05/02/18 15:12: Urine Appearance HAZY, Urine Color YELLOW, Urine pH 7.0, Urine Specific [place] 1.019, Urine Protein 1+H, Urine Glucose (UA) NEGATIVE, Urine Ketones NEGATIVE, Urine Urobilinogen 0.2, Urine Bilirubin NEGATIVE, Urine Leukocyte Esterase TRACEH, Urine Blood 3+H, Urine Nitrite NEGATIVE, Urine WBC (Auto) 22H, Urine RBC (Auto) TNTCH, Urine Hyaline Casts (Auto) 0, Urine Bacteria (Auto) 1+H, Urine Squamous Epithelial Cells 0, Urine Mucus (Auto) SMALL, Urine Sperm (Auto) 05/03/18 05:28: Nucleated Red Blood Cells % (auto) 0.2H, Anion Gap 6L, Glomerular Filtration Rate > 60.0, Blood Urea Nitrogen 8, Creatinine 0.98, Sodium Level 133L, Potassium Level 3.6, Chloride Level 97L, Carbon Dioxide Level 30, Calcium Level 8.2L CBC/BMP Laboratory Tests 05/03/18 05:28 Red Blood Count 2.72 L, Mean Corpuscular Volume 91.2, Mean Corpuscular Hemoglobin 29.8, Mean Corpuscular Hemoglobin Concent 32.7, Red Cell Distribution Width 14.3, Calcium Level 8.2 L Microbiology Microbiology 05/02/18 Blood Culture, Received Pending 04/26/18 Blood Culture - Final, Complete NO GROWTH AFTER 5 DAYS 04/25/18 Blood Culture - Final, Complete NO GROWTH AFTER 5 DAYS 04/23/18 Blood Culture - Final, Complete Staphylococcus Aureus 04/29/18 Stool Occult Blood (ANALY) - Final, Complete 04/27/18 Stool Occult Blood (ANALY) - Final, Complete 05/02/18 MRSA Screen - Final, Complete RYLEY JORDAN MD May 03, 2018 13:48
[2018-05-03] MEDS: DAPTOmycin 500 MG in NS 50 ML IV SCH (17:13)
[2018-05-03] MEDS: ROSUVASTATIN 10 MG TAB (CRESTOR) PO SCH (20:33)
[2018-05-03] MEDS: FERROUS SULFATE 325MG TAB PO SCH (20:33)
[2018-05-03] MEDS: RAMELTEON 8 MG TAB (ROZEREM) PO SCH (20:34)
[2018-05-03] MEDS: CYANOCOBALAMIN 500 MCG TAB PO SCH (20:34)
[2018-05-03] MEDS: ACETAMINOPHEN TAB 650MG DOSE (2X325MG) PO PRN (20:35)
[2018-05-04] MEDS: LEVOTHYROXINE 50MCG TABLET (0.05MG) PO SCH (05:40)
[2018-05-04] MEDS: SLF 3 ML SYR IV SCH ×3 (05:40→20:24)
[2018-05-04 05:52] LABS: HEMATOCRIT 25.8 % (42.0-52.0); HEMOGLOBIN 8.5 g/dl (13.5-17.5); MEAN CORPUSCULAR HGB CONC 32.9 g/dl (32.0-36.5); MEAN CORPUSCULAR VOLUME 91.2 fl (80.0-96.0); PLATELET COUNT, AUTOMATED 526 10^3/uL (150-450); RED BLOOD COUNT 2.83 10^6/uL (4.30-6.10)
[2018-05-04 06:00] VITALS: BP_SYST 163; BP_SYST 168; BP_DIAS 76
[2018-05-04 06:19] LABS: BLOOD UREA NITROGEN 10 MG/DL (7-18); CARBON DIOXIDE LEVEL 32 MEQ/L (21-32); CHLORIDE LEVEL 97 MEQ/L (98-107); CREATININE FOR GFR 0.91 MG/DL (0.70-1.30); GLOMERULAR FILTRATION RATE > 60.0 (>35); GLUCOSE, FASTING 96 MG/DL (70-100); SODIUM LEVEL 136 MEQ/L (136-145)
[2018-05-04] MEDS: FLUTICASONE PROP 0.05% NASAL SPRAY 16 GM (FLONASE) NARES SCH (09:00)
[2018-05-04] MEDS: BISACODYL 10 MG SUPP PR SCH ×2 (09:00→20:23)
[2018-05-04] MEDS: SENOKOT S TAB PO SCH ×2 (09:00→20:23)
[2018-05-04] MEDS ORDERED: POTASSIUM CHLORIDE 10 MEQ SR TABLET PO ONE (11:15)
[2018-05-04] MEDS: ASPIRIN 81 MG CHEW TABLET PO SCH (11:18)
[2018-05-04] MEDS: ENOXAPARIN 30 MG/0.3 ML SYR (J1650) SC SCH (11:18)
[2018-05-04] MEDS: METOPROLOL TART 12.5 MG PER 1/2 TAB PO SCH ×2 (11:19→20:24)
[2018-05-04] MEDS: FUROSEMIDE 40 MG TAB PO SCH (11:20)
[2018-05-04] MEDS ORDERED: LIDOCAINE 2% MDV 20 ML VIAL As Ordered ONE (11:22)
--- NOTE | 2018-05-04 12:29 | IPNPDOC ---
Date Seen The patient was seen on 05/04/18. Progress Note SUBJECTIVE: Patient is awake and oriented to person but otherwise disoriented to place time and situation season president [facility]. he he tells me he feels well he has no complaints. He is accompanied by his son and OBJECTIVE PHYSICAL EXAMINATION: VITAL SIGNS: Please see below. GENERAL: Frail elderly man lying in bed he is in no acute distress he speaking in complete sentences to his HEENT: Cranial nerves appear grossly intact moist mucous membranes CARDIOVASCULAR: S1-S2 regular. RESPIRATORY: Clear to auscultation possibly some diminished breath sounds at the bases. ABDOMINAL: Bowel sounds are present abdomen soft EXTREMITIES: No clubbing cyanosis or edema appreciated LABORATORY DATA, IMAGING STUDIES, MICROBIOLOGY: Please see below. Echocardiogram: 1. Preserved systolic function. 2. Aortic sclerosis but no stenosis or insufficiency. 3. Mild mitral insufficiency. 4. Trace tricuspid insufficiency. 5. No pulmonic insufficiency. 6. Intact atrial septum. 7. Normal flow in both right-sided and left-sided pulmonary veins. 8. Left atrial appendage free of thrombus. 9. Prominent atherosclerosis of aortic arch.. DVT prophylaxis ordered?: Lovenox Assessment and plan: 1. SOB - likely 2/2 decompensated diastolic CHF with pleural effusions versus pneumonia. The patient's fever fevers. Resolved clinically he has improved as well. MRSA screen is negative I have transitioned him to daptomycin as per infectious diseases previous recommendations, I'll avoid going back as 2 cefazolin as he did appear to decompensate somewhat while on this for several days. We're continuing with gentle diuresis I suspect the change in his status previously was secondary to respiratory infection as opposed to decompensated heart failure that causes clinical decline in the days prior to minus reassuming his care. 2. Obstructive uropathy - 2/2 urethral stricture - s/p dilation (04/26) and bladder neck resection appear significantly improved he has no further symptoms his renal function is within normal limits I will recheck urology today and see if we can give him a voiding trial as the family has concerns he will pull his catheter out 3. MSSA bacteremia - 2/2 Staph aureus - possibly 2/2 ulceration of feet related to frostbite. Infectious disease help greatly appreciated no evidence of vegetation duration of therapy to be completed 6 days from now I'll transition him to daptomycin and consider placement of a PICC linewith possible plan of home with IV antibiotics Tuesday to be completed on May 09. I did a lengthy discussion with the patient's and son about this today they are comfortable with this plan appear he has elected to pull his PICC line out even though he is accompanied by 2 people 24 hours a day they're also concerned about him pulling out his Rose catheter as well 4.Troponin elevation - possibly 2/2 NSTEMI (Type II) No complaints of chest pain, SOB or palpitations although the patient is a difficult historian given his dementia he does not have significant EKG changes cardiology help is greatly appreciated he is on aspirin and statin beta tamika he may require an outpatient ischemic evaluation. At this time it appears stable. 5. Normocytic anemia - likely 2/2 MENDY, he received 1 unit of PRBCs hemoglobin remained stable occult for blood is been negative 2 is continued on ferrous sulfate 6. DLP - c/w Rosuvastatin 7. Hypothyroidism - c/w Levothyroxine 8. B12 deficiency - c/w supplementation 9.Dementia Currently mentation appears to be at baseline but is altogether quite poor I did a lengthy discussion with the patient's and his son today who do agree and recognize his worsening. Even with 2 people 24 7 at home they're uncomfortable taking him home to complete home IV antibiotics and keeping a Rose catheter as well as a PICC line. I did ask him to discuss further with her granddaughter who is a registered nurse as well as also consider goals of care regarding DNR/DNI they will discuss with the family and I will revisit this issue tomorrow with them in the form of a MOLST form. Disposition: Pending home IV antibiotics set up voiding trial and goals of care discussion VS, I&O, 24H, Fishbone Vital Signs/I&O Vital Signs Date Time Temp Pulse Resp B/P (MAP) Pulse Ox O2 Delivery O2 Flow Rate FiO2 05/04/18 11:19 85 174/73 05/04/18 06:00 98.4 20 94 05/01/18 18:44 Room Air 04/28/18 23:59 I&O- Last 24 Hours up to 6 AM 05/04/18 06:00 Intake Total 770 ml Output Total 2075 ml Balance -1305 ml Laboratory Data 24H LABS Laboratory Tests 2 05/04/18 05:39: Nucleated Red Blood Cells % (auto) 0.0, Anion Gap 7L, Glomerular Filtration Rate > 60.0, Blood Urea Nitrogen 10, Creatinine 0.91, Sodium Level 136, Potassium Level 3.0L, Chloride Level 97L, Carbon Dioxide Level 32, Calcium Level 8.0L CBC/BMP Laboratory Tests 05/04/18 05:39 Red Blood Count 2.83 L, Mean Corpuscular Volume 91.2, Mean Corpuscular Hemoglobin 30.0, Mean Corpuscular Hemoglobin Concent 32.9, Red Cell Distribution Width 14.0, Calcium Level 8.0 L Microbiology Microbiology 05/02/18 Blood Culture - Preliminary, Resulted No growth after 24 hours . All specim... 04/26/18 Blood Culture - Final, Complete NO GROWTH AFTER 5 DAYS 04/25/18 Blood Culture - Final, Complete NO GROWTH AFTER 5 DAYS 04/29/18 Stool Occult Blood (ANALY) - Final, Complete 04/27/18 Stool Occult Blood (ANALY) - Final, Complete 05/02/18 MRSA Screen - Final, Complete RYLEY JORDAN MD May 04, 2018 12:29
--- NOTE | 2018-05-04 13:14 | ROOPDOC ---
[facility] Report Of Operation Report of Operation DATE OF PROCEDURE: 05/04/18 PREPROCEDURE DIAGNOSES: Bacteremia requiring IV access for home IV antibiotics. POSTPROCEDURE DIAGNOSES: Same. PROCEDURE: PICC line placement right basilic vein. SURGEON: Stefania Addison MD ANESTHESIA: Local anesthesia only. INDICATION FOR PROCEDURE: Mr. Lopez is an 87-year-old gentleman with infection in his feet that spread to his blood and requires long-term IV access for home IV antibiotics risks, benefits and alternatives to PICC line placement were explained to the patient's and son and all questions were answered. They were agreeable to proceed and informed consent was obtained from the patient's . INTERPRETATION: Final imaging confirms that the tip of the PICC line is at the SVC and right atrial junction. DESCRIPTION OF PROCEDURE: The patient was brought to the angiographic suite in stable condition and placed supine on the fluoroscopic table. Ultrasound was used to examine the veins in the right upper extremity and we selected the basilic vein for PICC placement, the right upper extremity was then prepped and draped in a sterile fashion. A timeout was performed. Local anesthesia was administered to the skin and subcutaneous tissue over the basilic vein in the right upper arm. Ultrasound was used to guide access and a wire was passed through this access into the central system under fluoroscopic guidance, and the needle was removed and a peel-away sheath was placed over the wire using a Seldinger technique. The tip of the wire at the SVC right atrial junction was identified and then the wire was measured and the PICC line was cut to 37 cm the PICC line was then flushed and placed over the wire. A single lumen PICC was used.. We then removed the inner cannula of the peel-away sheath and the PICC line and wire were advanced into the central system under fluoroscopic guidance. The wire was removed and PICC easily saeid back and flushed. Final imaging confirmed that the tip was freely mobile at the SVC right atrial junction. There were no kinks in the catheter. We then removed the peel-away sheath and the PICC line was heparin locked and secured with a StatLock. The patient tolerated the procedure well. ESTIMATED BLOOD LOSS: Approximately 2 mL. COMPLICATIONS: None. REMARKS: We rewrapped the mobile end of the PICC line external to the patient with gauze and then wrapped his upper arm loosely with CoBAN to try and prevent the patient from pulling out the catheter per his nurse and his . He has a habit of pulling out IVs and therefore we felt securing this to the upper arm was our best chance to prevent this from happening. Whenever the catheter is not in use, it should be secured in a similar fashion to prevent him from removing it. It is okay to use the catheter for antibiotics and blood draws as needed. STEFANIA ADDISON MD May 04, 2018 13:14
[2018-05-04 14:00] VITALS: BP 164/84
[2018-05-04] MEDS ORDERED: SODIUM CHLORIDE 0.9% INJ 10 ML SYR IV PRN (14:00)
[2018-05-04 14:10] VITALS: BP 122/50
[2018-05-04] MEDS: DAPTOmycin 500 MG in NS 50 ML IV SCH (16:43)
[2018-05-04] MEDS: SODIUM CHLORIDE 0.9% INJ 10 ML SYR IV SCH (17:36)
[2018-05-04] MEDS: CYANOCOBALAMIN 500 MCG TAB PO SCH (20:23)
[2018-05-04] MEDS: RAMELTEON 8 MG TAB (ROZEREM) PO SCH (20:23)
[2018-05-04] MEDS: ROSUVASTATIN 10 MG TAB (CRESTOR) PO SCH (20:24)
[2018-05-04 22:00] VITALS: BP 131/71
[2018-05-05 05:59] LABS: HEMATOCRIT 26.3 % (42.0-52.0); HEMOGLOBIN 8.5 g/dl (13.5-17.5); MEAN CORPUSCULAR HEMOGLOBIN 29.4 pg (27.0-33.0); MEAN CORPUSCULAR HGB CONC 32.3 g/dl (32.0-36.5); PLATELET COUNT, AUTOMATED 560 10^3/uL (150-450); RED BLOOD COUNT 2.89 10^6/uL (4.30-6.10); WHITE BLOOD COUNT 12.3 10^3/uL (4.0-10.0)
[2018-05-05 06:00] VITALS: BP 127/75
[2018-05-05 06:09] LABS: BLOOD UREA NITROGEN 9 MG/DL (7-18); CALCIUM LEVEL 8.4 MG/DL (8.8-10.2); CARBON DIOXIDE LEVEL 31 MEQ/L (21-32); CHLORIDE LEVEL 99 MEQ/L (98-107); CREATININE FOR GFR 0.91 MG/DL (0.70-1.30); GLOMERULAR FILTRATION RATE > 60.0 (>35); GLUCOSE, FASTING 97 MG/DL (70-100); POTASSIUM SERUM 3.5 MEQ/L (3.5-5.1); SODIUM LEVEL 137 MEQ/L (136-145)
[2018-05-05] MEDS: SLF 3 ML SYR IV SCH ×3 (06:11→21:02)
[2018-05-05] MEDS: SODIUM CHLORIDE 0.9% INJ 10 ML SYR IV SCH ×2 (06:11→18:00)
[2018-05-05] MEDS: LEVOTHYROXINE 50MCG TABLET (0.05MG) PO SCH (06:11)
[2018-05-05] MEDS: BISACODYL 10 MG SUPP PR SCH ×2 (09:00→20:37)
[2018-05-05] MEDS: SENOKOT S TAB PO SCH ×2 (09:00→20:36)
[2018-05-05] MEDS: ENOXAPARIN 30 MG/0.3 ML SYR (J1650) SC SCH (10:41)
[2018-05-05] MEDS: FLUTICASONE PROP 0.05% NASAL SPRAY 16 GM (FLONASE) NARES SCH (10:43)
[2018-05-05] MEDS: METOPROLOL TART 12.5 MG PER 1/2 TAB PO SCH ×2 (10:43→20:27)
[2018-05-05] MEDS: FUROSEMIDE 40 MG TAB PO SCH (10:43)
[2018-05-05] MEDS: ASPIRIN 81 MG CHEW TABLET PO SCH (10:43)
--- NOTE | 2018-05-05 12:02 | IPNPDOC ---
Date Seen The patient was seen on 05/05/18. Progress Note SUBJECTIVE: Patient is sleeping peacefully is entered the room but easily arousable he does not appear to be in any acute distress he is oriented to person but not place time or situation. He is accompanied by his daughter. The patient denies any complaints today OBJECTIVE PHYSICAL EXAMINATION: VITAL SIGNS: Please see below. GENERAL: Frail elderly man lying in bed he is in no acute distress he does appear tired today HEENT: Cranial nerves appear grossly intact moist mucous membranes CARDIOVASCULAR: S1-S2 regular. RESPIRATORY: Clear to auscultation possibly some diminished breath sounds at the bases. ABDOMINAL: Bowel sounds are present abdomen soft EXTREMITIES: No clubbing cyanosis or edema appreciated LABORATORY DATA, IMAGING STUDIES, MICROBIOLOGY: Please see below. Echocardiogram: 1. Preserved systolic function. 2. Aortic sclerosis but no stenosis or insufficiency. 3. Mild mitral insufficiency. 4. Trace tricuspid insufficiency. 5. No pulmonic insufficiency. 6. Intact atrial septum. 7. Normal flow in both right-sided and left-sided pulmonary veins. 8. Left atrial appendage free of thrombus. 9. Prominent atherosclerosis of aortic arch.. DVT prophylaxis ordered?: Lovenox Assessment and plan: 1. SOB - likely 2/2 decompensated diastolic CHF with pleural effusions versus pneumonia. The patient's fevers resolved, clinically he has improved as well. MRSA screen is negative I have transitioned him to daptomycin as per infectious diseases previous recommendations, I'll avoid going back to 2 cefazolin as he did appear to decompensate somewhat while on this for several days. We're continuing with gentle diuresis I suspect the change in his status previously was secondary to respiratory infection as opposed to decompensated heart failure that causes clinical decline in the days prior to minus reassuming his care. 2. Obstructive uropathy - 2/2 urethral stricture - s/p dilation (04/26) and bladder neck resection appear significantly improved he has no further symptoms his renal function is within normal limits I did speak with urology yesterday and we have pulled his Rose catheter he does appear to be voiding at this time I will have nursing staff check a postvoid residual to ensure he is not retainin g 3. MSSA bacteremia - 2/2 Staph aureus - possibly 2/2 ulceration of feet related to frostbite. Infectious disease help greatly appreciated no evidence of vegetation duration of therapy to be completed on May 09. The patient's and son are not comfortable with the plan of him going home with PICC line in place with a fear of him pulling out and would refer him in hospital to receive his IV antibiotics 4.Troponin elevation - possibly 2/2 NSTEMI (Type II) No complaints of chest pain, SOB or palpitations although the patient is a difficult historian given his dementia he does not have significant EKG changes cardiology help is greatly appreciated he is on aspirin and statin beta tamika he may require an outpatient ischemic evaluation. At this time it appears stable. 5. Normocytic anemia - likely 2/2 MENDY, he received 1 unit of PRBCs hemoglobin remained stable occult for blood is been negative 2 is continued on ferrous sulfate 6. DLP - c/w Rosuvastatin 7. Hypothyroidism - c/w Levothyroxine 8. B12 deficiency - c/w supplementation 9.Dementia Currently mentation appears to be at baseline but is altogether quite poor I did a lengthy discussion once again this morning the family is not ready to make any DNR/DNI. Most form the patient's rectum she would talk it over with her granddaughter who is a registered nurse I did express to them my concern given his advanced dementia and multiple comorbidities I do suspect that his long-term prognosis is quite poor Disposition: Pending completion of IV antibiotics VS, I&O, 24H, Ap Vital Signs/I&O Vital Signs Date Time Temp Pulse Resp B/P (MAP) Pulse Ox O2 Delivery O2 Flow Rate FiO2 05/05/18 10:43 72 165/72 05/05/18 06:00 98.1 18 96 05/01/18 18:44 Room Air I&O- Last 24 Hours up to 6 AM 05/05/18 06:00 Intake Total 300 ml Balance 300 ml Laboratory Data 24H LABS Laboratory Tests 2 05/05/18 05:37: Nucleated Red Blood Cells % (auto) 0.0, Anion Gap 7L, Glomerular Filtration Rate > 60.0, Blood Urea Nitrogen 9, Creatinine 0.91, Sodium Level 137, Potassium Level 3.5, Chloride Level 99, Carbon Dioxide Level 31, Calcium Level 8.4L CBC/BMP Laboratory Tests 05/05/18 05:37 Red Blood Count 2.89 L, Mean Corpuscular Volume 91.0, Mean Corpuscular Hemoglobin 29.4, Mean Corpuscular Hemoglobin Concent 32.3, Red Cell Distribution Width 14.0, Calcium Level 8.4 L Microbiology Microbiology 05/02/18 Blood Culture - Preliminary, Resulted No Growth after 48 hours. All Specime... 04/26/18 Blood Culture - Final, Complete NO GROWTH AFTER 5 DAYS 04/25/18 Blood Culture - Final, Complete NO GROWTH AFTER 5 DAYS 04/29/18 Stool Occult Blood (ANALY) - Final, Complete 04/27/18 Stool Occult Blood (ANALY) - Final, Complete 05/02/18 MRSA Screen - Final, Complete RYLEY JORDAN MD May 05, 2018 12:01
[2018-05-05 14:00] VITALS: BP 137/65
[2018-05-05] MEDS: DAPTOmycin 500 MG in NS 50 ML IV SCH (18:34)
--- NOTE | 2018-05-05 18:38 | REPVR ---
EXAM: US Duplex Right Upper Extremity Veins, Limited EXAM DATE/TIME: 05/05/2018 5:47 PM CLINICAL HISTORY: 87 years old, male; Pain; Arn, upper; Right; Additional info: R/O dvt TECHNIQUE: Real-time Duplex ultrasound of the Right Upper Extremity with 2-D adame scale, color Doppler flow and spectral waveform analysis. Limited exam focused on the right upper extremity veins. COMPARISON: No relevant prior studies available. FINDINGS: Right deep veins: Unremarkable. Axillary and brachial veins are patent throughout without thrombus. Normal Doppler waveforms. Normal compressibility and/or augmentation response. Visualized internal jugular and subclavian veins are patent. Right superficial veins: Unremarkable. Visualized cephalic and basilic veins are patent without thrombus. Soft tissues: Unremarkable. Lymph nodes: No significant adenopathy. Other findings: PICC line demonstrated in the distal right subclavian, axillary and basilic veins. IMPRESSION: PICC line demonstrated as described above. No DVT. Electronically signed by: Michael Babb On 05/05/2018 18:38:28 PM
[2018-05-05] MEDS: CYANOCOBALAMIN 500 MCG TAB PO SCH (20:26)
[2018-05-05] MEDS: RAMELTEON 8 MG TAB (ROZEREM) PO SCH (20:26)
[2018-05-05] MEDS: FERROUS SULFATE 325MG TAB PO SCH (20:27)
[2018-05-05] MEDS: ROSUVASTATIN 10 MG TAB (CRESTOR) PO SCH (20:27)
[2018-05-05 22:00] VITALS: BP 135/61
[2018-05-06 05:43] LABS: HEMATOCRIT 27.4 % (42.0-52.0); HEMOGLOBIN 8.7 g/dl (13.5-17.5); MEAN CORPUSCULAR HEMOGLOBIN 29.5 pg (27.0-33.0); MEAN CORPUSCULAR HGB CONC 31.8 g/dl (32.0-36.5); MEAN CORPUSCULAR VOLUME 92.9 fl (80.0-96.0); PLATELET COUNT, AUTOMATED 557 10^3/uL (150-450); RED BLOOD COUNT 2.95 10^6/uL (4.30-6.10); WHITE BLOOD COUNT 10.8 10^3/uL (4.0-10.0)
[2018-05-06] MEDS: LEVOTHYROXINE 50MCG TABLET (0.05MG) PO SCH (05:48)
[2018-05-06] MEDS: SLF 3 ML SYR IV SCH ×3 (05:48→20:22)
[2018-05-06] MEDS: SODIUM CHLORIDE 0.9% INJ 10 ML SYR IV SCH ×2 (05:49→18:00)
[2018-05-06 06:00] VITALS: BP 131/69
[2018-05-06 06:04] LABS: BLOOD UREA NITROGEN 12 MG/DL (7-18); CALCIUM LEVEL 8.5 MG/DL (8.8-10.2); CARBON DIOXIDE LEVEL 32 MEQ/L (21-32); CHLORIDE LEVEL 98 MEQ/L (98-107); CREATININE FOR GFR 0.86 MG/DL (0.70-1.30); GLOMERULAR FILTRATION RATE > 60.0 (>35); GLUCOSE, FASTING 98 MG/DL (70-100); POTASSIUM SERUM 3.7 MEQ/L (3.5-5.1); SODIUM LEVEL 137 MEQ/L (136-145)
[2018-05-06] MEDS: FLUTICASONE PROP 0.05% NASAL SPRAY 16 GM (FLONASE) NARES SCH ×2 (09:00→10:07)
[2018-05-06] MEDS: METOPROLOL TART 12.5 MG PER 1/2 TAB PO SCH ×2 (09:00→20:29)
[2018-05-06 09:05] VITALS: BP 159/70
[2018-05-06] MEDS: ENOXAPARIN 30 MG/0.3 ML SYR (J1650) SC SCH (10:00)
[2018-05-06] MEDS: FUROSEMIDE 40 MG TAB PO SCH (10:01)
[2018-05-06] MEDS: SENOKOT S TAB PO SCH ×2 (10:02→20:43)
[2018-05-06] MEDS: ASPIRIN 81 MG CHEW TABLET PO SCH (10:06)
[2018-05-06] MEDS: BISACODYL 10 MG SUPP PR SCH ×2 (10:07→20:43)
--- NOTE | 2018-05-06 14:53 | IPNPDOC ---
Date Seen The patient was seen on 05/06/18. Progress Note SUBJECTIVE: Patient denies any complaints today OBJECTIVE PHYSICAL EXAMINATION: VITAL SIGNS: Please see below. GENERAL: Frail elderly man lying in bed he is in no acute distress he does appear tired today HEENT: Cranial nerves appear grossly intact moist mucous membranes CARDIOVASCULAR: S1-S2 regular. RESPIRATORY: Clear to auscultation possibly some diminished breath sounds at the bases. ABDOMINAL: Bowel sounds are present abdomen soft EXTREMITIES: No clubbing cyanosis or edema appreciated some mild erythema of his right elbow but there is no tenderness no swelling range of motion LABORATORY DATA, IMAGING STUDIES, MICROBIOLOGY: Please see below. Echocardiogram: 1. Preserved systolic function. 2. Aortic sclerosis but no stenosis or insufficiency. 3. Mild mitral insufficiency. 4. Trace tricuspid insufficiency. 5. No pulmonic insufficiency. 6. Intact atrial septum. 7. Normal flow in both right-sided and left-sided pulmonary veins. 8. Left atrial appendage free of thrombus. 9. Prominent atherosclerosis of aortic arch.. DVT prophylaxis ordered?: Lovenox Assessment and plan: 1. SOB - results likely 2/2 decompensated diastolic CHF with pleural effusions versus pneumonia. The patient's fevers resolved, clinically he has improved as well. MRSA screen is negative I have transitioned him to daptomycin as per infectious diseases previous recommendations. We're continuing with gentle diuresis I suspect the change in his status previously was secondary to respiratory infection as opposed to decompensated heart failure. 2. Obstructive uropathy - 2/2 urethral stricture - s/p dilation (04/26) and bladder neck resection appear significantly improved he has no further symptoms his renal function is within normal limits his Rose catheter has since been removed he is voiding no evidence of retention at this time he has had PVRs checked 3. MSSA bacteremia - 2/2 Staph aureus - possibly 2/2 ulceration of feet related to frostbite. Infectious disease help greatly appreciated no evidence of vegetation duration of therapy to be completed on May 09. The patient's and son are not comfortable with the plan of him going home with PICC line in place with a fear of him pulling out and would refer him in hospital to receive his IV antibiotics 4.Troponin elevation - possibly 2/2 NSTEMI (Type II) No complaints of chest pain, SOB or palpitations although the patient is a difficult historian given his dementia he does not have significant EKG changes cardiology help is greatly appreciated he is on aspirin and statin beta tamika he may require an outpatient ischemic evaluation. At this time it appears s table. 5. Normocytic anemia - likely 2/2 MENDY, he received 1 unit of PRBCs hemoglobin remained stable occult for blood is been negative 2 is continued on ferrous sulfate 6. DLP - c/w Rosuvastatin 7. Hypothyroidism - c/w Levothyroxine 8. B12 deficiency - c/w supplementation 9.Dementia Currently mentation appears to be at baseline but is altogether quite poor I did a lengthy discussion previously with the family and I did express to them my concern given his advanced dementia and multiple comorbidities I do suspect that his long-term prognosis is quite poor Disposition: Pending completion of IV antibiotics VS, I&O, 24H, Fishbone Vital Signs/I&O Vital Signs Date Time Temp Pulse Resp B/P (MAP) Pulse Ox O2 Delivery O2 Flow Rate FiO2 05/06/18 09:05 98.0 66 16 159/70 (99) 97 05/01/18 18:44 Room Air I&O- Last 24 Hours up to 6 AM 05/06/18 06:00 Intake Total 480 ml Balance 480 ml Laboratory Data 24H LABS Laboratory Tests 2 05/06/18 05:18: Nucleated Red Blood Cells % (auto) 0.0, Anion Gap 7L, Glomerular Filtration Rate > 60.0, Blood Urea Nitrogen 12, Creatinine 0.86, Sodium Level 137, Potassium Level 3.7, Chloride Level 98, Carbon Dioxide Level 32, Calcium Level 8.5L CBC/BMP Laboratory Tests 05/06/18 05:18 Red Blood Count 2.95 L, Mean Corpuscular Volume 92.9, Mean Corpuscular Hemoglobin 29.5, Mean Corpuscular Hemoglobin Concent 31.8 L, Red Cell Distribution Width 14.0, Calcium Level 8.5 L Microbiology Microbiology 05/02/18 Blood Culture - Preliminary, Resulted No Growth after 72 hours. All specime... 04/26/18 Blood Culture - Final, Complete NO GROWTH AFTER 5 DAYS 04/29/18 Stool Occult Blood (ANALY) - Final, Complete 04/27/18 Stool Occult Blood (ANALY) - Final, Complete 05/02/18 MRSA Screen - Final, Complete RYLEY JORDAN MD May 06, 2018 14:53
[2018-05-06 15:20] VITALS: BP 140/62
[2018-05-06] MEDS: DAPTOmycin 500 MG in NS 50 ML IV SCH (16:16)
[2018-05-06] MEDS: CYANOCOBALAMIN 500 MCG TAB PO SCH (20:30)
[2018-05-06] MEDS: ROSUVASTATIN 10 MG TAB (CRESTOR) PO SCH (20:30)
[2018-05-06] MEDS: RAMELTEON 8 MG TAB (ROZEREM) PO SCH (20:30)
[2018-05-06 22:00] VITALS: BP 152/60
[2018-05-07] MEDS: SLF 3 ML SYR IV SCH ×3 (05:40→21:15)
[2018-05-07] MEDS: SODIUM CHLORIDE 0.9% INJ 10 ML SYR IV SCH ×2 (05:40→16:54)
[2018-05-07] MEDS: LEVOTHYROXINE 50MCG TABLET (0.05MG) PO SCH (05:41)
[2018-05-07 05:58] LABS: HEMATOCRIT 25.1 % (42.0-52.0); HEMOGLOBIN 8.2 g/dl (13.5-17.5); MEAN CORPUSCULAR HEMOGLOBIN 29.5 pg (27.0-33.0); MEAN CORPUSCULAR HGB CONC 32.7 g/dl (32.0-36.5); MEAN CORPUSCULAR VOLUME 90.3 fl (80.0-96.0); PLATELET COUNT, AUTOMATED 605 10^3/uL (150-450); RED BLOOD COUNT 2.78 10^6/uL (4.30-6.10); WHITE BLOOD COUNT 11.8 10^3/uL (4.0-10.0)
[2018-05-07 06:00] VITALS: BP 151/67
[2018-05-07 06:17] LABS: BLOOD UREA NITROGEN 13 MG/DL (7-18); CALCIUM LEVEL 8.7 MG/DL (8.8-10.2); CARBON DIOXIDE LEVEL 29 MEQ/L (21-32); CHLORIDE LEVEL 100 MEQ/L (98-107); CREATININE FOR GFR 0.88 MG/DL (0.70-1.30); GLOMERULAR FILTRATION RATE > 60.0 (>35); GLUCOSE, FASTING 99 MG/DL (70-100); POTASSIUM SERUM 3.6 MEQ/L (3.5-5.1); SODIUM LEVEL 137 MEQ/L (136-145)
[2018-05-07 07:11] LABS: C REACTIVE PROTEIN QUANTITATIV 1.84 MG/DL (0.00-0.30)
[2018-05-07 08:02] LABS: ERYTHROCYTE SEDIMENTATION RATE 79 mm/hr (0-30)
[2018-05-07] MEDS: SENOKOT S TAB PO SCH ×2 (09:00→21:00)
[2018-05-07] MEDS: BISACODYL 10 MG SUPP PR SCH ×2 (09:00→21:00)
[2018-05-07] MEDS: ASPIRIN 81 MG CHEW TABLET PO SCH (09:14)
[2018-05-07] MEDS: FUROSEMIDE 40 MG TAB PO SCH (09:15)
[2018-05-07] MEDS: METOPROLOL TART 12.5 MG PER 1/2 TAB PO SCH ×2 (09:15→21:00)
[2018-05-07] MEDS: FLUTICASONE PROP 0.05% NASAL SPRAY 16 GM (FLONASE) NARES SCH (09:16)
[2018-05-07] MEDS: ENOXAPARIN 30 MG/0.3 ML SYR (J1650) SC SCH (09:16)
--- NOTE | 2018-05-07 09:20 | IPNPDOC ---
Date Seen The patient was seen on 05/07/18. Progress Note SUBJECTIVE: Patient denies any complaints today, says that "all is good" OBJECTIVE PHYSICAL EXAMINATION: VITAL SIGNS: Please see below. GENERAL: Frail elderly man lying in bed he is in no acute distress he does appear tired once again today his grand daughter who is an RN his bedside HEENT: Cranial nerves appear grossly intact moist mucous membranes CARDIOVASCULAR: S1-S2 regular. RESPIRATORY: Clear to auscultation possibly some diminished breath sounds at the bases. Poor effort ABDOMINAL: Bowel sounds are present abdomen soft EXTREMITIES: No clubbing cyanosis or edema appreciated some mild erythema of his right elbow but there is no tenderness no swelling range of motion LABORATORY DATA, IMAGING STUDIES, MICROBIOLOGY: Please see below. Echocardiogram: 1. Preserved systolic function. 2. Aortic sclerosis but no stenosis or insufficiency. 3. Mild mitral insufficiency. 4. Trace tricuspid insufficiency. 5. No pulmonic insufficiency. 6. Intact atrial septum. 7. Normal flow in both right-sided and left-sided pulmonary veins. 8. Left atrial appendage free of thrombus. 9. Prominent atherosclerosis of aortic arch.. DVT prophylaxis ordered?: Lovenox Assessment and plan: 1. SOB -resolved likely 2/2 decompensated diastolic CHF with pleural effusions versus pneumonia. The patient's fevers resolved, clinically he has improved as well. MRSA screen is negative I have transitioned him to daptomycin as per infectious diseases previous recommendations. We're continuing with gentle diuresis I suspect the change in his status previously was secondary to respiratory infection as opposed to decompensated heart failure. I will recheck a chest x-ray tomorrow 2. Obstructive uropathy - 2/2 urethral stricture - s/p dilation (04/26) and bladder neck resection appear significantly improved he has no further symptoms his renal function is within normal limits his Rose catheter has since been removed he is voiding no evidence of retention at this time he has had PVRs checked 3. MSSA bacteremia - 2/2 Staph aureus - possibly 2/2 ulceration of feet related to frostbite. Infectious disease help greatly appreciated no evidence of vegetation duration of therapy to be completed on May 09. The patient's and son are not comfortable with the plan of him going home with PICC line in place with a fear of him pulling out and would refer him in hospital to receive his IV antibiotics. 4.Troponin elevation - possibly 2/2 NSTEMI (Type II) No complaints of chest pain, SOB or palpitations although the patient is a diffi cult historian given his dementia he does not have significant EKG changes cardiology help is greatly appreciated he is on aspirin and statin beta tamika he may require an outpatient ischemic evaluation. At this time it appears stable. 5. Normocytic anemia - likely 2/2 MENDY, he received 1 unit of PRBCs hemoglobin remained stable occult for blood is been negative 2 is continued on ferrous sulfate 6. DLP - c/w Rosuvastatin 7. Hypothyroidism - c/w Levothyroxine 8. B12 deficiency - c/w supplementation 9.Dementia Currently mentation appears to be at baseline but is altogether quite poor I did a lengthy discussion previously with the family and I did express to them my concern given his advanced dementia and multiple comorbidities I do suspect that his long-term prognosis is quite poor. Disposition: Pending completion of IV antibiotics VS, I&O, 24H, Fishbone Vital Signs/I&O Vital Signs Date Time Temp Pulse Resp B/P (MAP) Pulse Ox O2 Delivery O2 Flow Rate FiO2 05/07/18 09:15 151/67 05/07/18 06:00 98.7 76 20 92 05/01/18 18:44 Room Air I&O- Last 24 Hours up to 6 AM 05/07/18 06:00 Intake Total 955 ml Output Total 20 ml Balance 935 ml Laboratory Data 24H LABS Laboratory Tests 2 05/07/18 05:35: Nucleated Red Blood Cells % (auto) 0.0, Erythrocyte Sedimentation Rate 79H, Anion Gap 8, Glomerular Filtration Rate > 60.0, Blood Urea Nitrogen 13, Creatinine 0.88, Sodium Level 137, Potassium Level 3.6, Chloride Level 100, Carbon Dioxide Level 29, Calcium Level 8.7L, C-Reactive Protein, Quantitative 1.84H CBC/BMP Laboratory Tests 05/07/18 05:35 Red Blood Count 2.78 L, Mean Corpuscular Volume 90.3, Mean Corpuscular Hemoglobin 29.5, Mean Corpuscular Hemoglobin Concent 32.7, Red Cell Distribution Width 13.9, Calcium Level 8.7 L Microbiology Microbiology 05/02/18 Blood Culture - Preliminary, Resulted No Growth after 72 hours. All specime... 04/29/18 Stool Occult Blood (ANALY) - Final, Complete 04/27/18 Stool Occult Blood (ANALY) - Final, Complete 05/02/18 MRSA Screen - Final, Complete RYLEY JORDAN MD May 07, 2018 09:20
[2018-05-07 14:00] VITALS: BP 150/67
[2018-05-07] MEDS: DAPTOmycin 500 MG in NS 50 ML IV SCH (16:34)
[2018-05-07] MEDS: RAMELTEON 8 MG TAB (ROZEREM) PO SCH (21:05)
[2018-05-07] MEDS: CYANOCOBALAMIN 500 MCG TAB PO SCH (21:06)
[2018-05-07] MEDS: FERROUS SULFATE 325MG TAB PO SCH (21:06)
[2018-05-07] MEDS: ROSUVASTATIN 10 MG TAB (CRESTOR) PO SCH (21:06)
[2018-05-07 22:00] VITALS: BP 114/56
[2018-05-08] MEDS: SODIUM CHLORIDE 0.9% INJ 10 ML SYR IV SCH ×2 (05:23→18:00)
[2018-05-08] MEDS: LEVOTHYROXINE 50MCG TABLET (0.05MG) PO SCH (05:23)
[2018-05-08] MEDS: SLF 3 ML SYR IV SCH (05:28)
[2018-05-08 05:54] LABS: HEMATOCRIT 25.2 % (42.0-52.0); HEMOGLOBIN 8.2 g/dl (13.5-17.5); MEAN CORPUSCULAR HEMOGLOBIN 29.5 pg (27.0-33.0); MEAN CORPUSCULAR HGB CONC 32.5 g/dl (32.0-36.5); MEAN CORPUSCULAR VOLUME 90.6 fl (80.0-96.0); PLATELET COUNT, AUTOMATED 542 10^3/uL (150-450); RED BLOOD COUNT 2.78 10^6/uL (4.30-6.10); WHITE BLOOD COUNT 9.8 10^3/uL (4.0-10.0)
[2018-05-08 06:00] VITALS: BP 152/69
[2018-05-08 06:02] LABS: BLOOD UREA NITROGEN 16 MG/DL (7-18); CALCIUM LEVEL 8.4 MG/DL (8.8-10.2); CARBON DIOXIDE LEVEL 32 MEQ/L (21-32); CHLORIDE LEVEL 99 MEQ/L (98-107); CREATININE FOR GFR 0.93 MG/DL (0.70-1.30); GLOMERULAR FILTRATION RATE > 60.0 (>35); GLUCOSE, FASTING 107 MG/DL (70-100); POTASSIUM SERUM 3.5 MEQ/L (3.5-5.1); SODIUM LEVEL 137 MEQ/L (136-145)
--- NOTE | 2018-05-08 08:24 | REP ---
Clinical: Effusion. Comparison: 05/03/2018. Findings: Left lower lobe consolidation and effusion again identified which may be minimally improved. The right hemithorax is clear. The mediastinum and cardiac silhouette are stable. PICC line identified with tip in the SVC. Skeletal structures intact. Impression: Left lower lobe consolidation and effusion may be minimally improved from prior examination. Electronically Signed by Daron Jones MD 05/08/2018 08:16 A
[2018-05-08] MEDS: SENOKOT S TAB PO SCH ×2 (09:00→20:28)
[2018-05-08] MEDS: BISACODYL 10 MG SUPP PR SCH ×2 (09:00→20:26)
[2018-05-08] MEDS: FUROSEMIDE 40 MG TAB PO SCH (09:55)
[2018-05-08] MEDS: METOPROLOL TART 12.5 MG PER 1/2 TAB PO SCH ×2 (09:55→20:27)
[2018-05-08] MEDS: ASPIRIN 81 MG CHEW TABLET PO SCH (09:55)
[2018-05-08] MEDS: ENOXAPARIN 30 MG/0.3 ML SYR (J1650) SC SCH (09:56)
[2018-05-08] MEDS: FLUTICASONE PROP 0.05% NASAL SPRAY 16 GM (FLONASE) NARES SCH (09:56)
[2018-05-08 14:00] VITALS: BP 141/65
--- NOTE | 2018-05-08 16:28 | IPNPDOC ---
Date Seen The patient was seen on 05/08/18. Progress Note SUBJECTIVE: Patient denies any complaints today OBJECTIVE PHYSICAL EXAMINATION: VITAL SIGNS: Please see below. GENERAL: Frail elderly man lying in bed he is in no acute distress HEENT: Cranial nerves appear grossly intact moist mucous membranes CARDIOVASCULAR: S1-S2 regular. RESPIRATORY: Clear to auscultation possibly some diminished breath sounds at the bases. Poor effort ABDOMINAL: Bowel sounds are present abdomen soft EXTREMITIES: No clubbing cyanosis or edema appreciated LABORATORY DATA, IMAGING STUDIES, MICROBIOLOGY: Please see below. Echocardiogram: 1. Preserved systolic function. 2. Aortic sclerosis but no stenosis or insufficiency. 3. Mild mitral insufficiency. 4. Trace tricuspid insufficiency. 5. No pulmonic insufficiency. 6. Intact atrial septum. 7. Normal flow in both right-sided and left-sided pulmonary veins. 8. Left atrial appendage free of thrombus. 9. Prominent atherosclerosis of aortic arch.. DVT prophylaxis ordered?: Lovenox Assessment and plan: 1. SOB -resolved likely 2/2 decompensated diastolic CHF with pleural effusions versus pneumonia. The patient's fevers resolved, clinically he has improved as well. MRSA screen is negative I have transitioned him to daptomycin as per infectious diseases previous recommendations. We're continuing with gentle diuresis I suspect the change in his status previously may have been secondary to respiratory infection as opposed to decompensated heart failure. He improved with broadening of Abx and some diuresis. He did have a one time low grade temp yesterday that is somewhat concerning, I have asked ID to revisit the patient. 2. Obstructive uropathy - 2/2 urethral stricture - s/p dilation (04/26) and bladder neck resection appear significantly improved he has no further symptoms his renal function is within normal limits his Rose catheter has since been removed he is voiding no evidence of retention at this time he has had PVRs checked 3. MSSA bacteremia - 2/2 Staph aureus - possibly 2/2 ulceration of feet related to frostbite. Infectious disease help greatly appreciated no evidence of vegetation duration of therapy to be completed on May 09. The patient's and son are not comfortable with the plan of him going home with PICC line in place with a fear of him pulling out and would prefer him in hospital to receive his IV antibiotics. 4.Troponin elevation - possibly 2/2 NSTEMI (Type II) No complaints of chest pain, SOB or palpitations although the patient is a difficult historian given his dementia he does not have significant EKG changes cardiology help is greatly appreciated he is on aspirin and statin beta tamika he may require an outpatient ischemic evaluation. At this time it appears stable. 5. Normocytic anemia - likely 2/2 MENDY, he received 1 unit of PRBCs hemoglobin remained stable occult for blood is been negative 2 is continued on ferrous sulfate 6. DLP - c/w Rosuvastatin 7. Hypothyroidism - c/w Levothyroxine 8. B12 deficiency - c/w supplementation 9.Dementia Currently mentation appears to be at baseline but is altogether quite poor I did a lengthy discussion previously with the family and I did express to them my concern given his advanced dementia and multiple comorbidities I do suspect that his long-term prognosis is quite poor. Disposition: Pending completion of IV antibiotics VS, I&O, 24H, Fishbone Vital Signs/I&O Vital Signs Date Time Temp Pulse Resp B/P (MAP) Pulse Ox O2 Delivery O2 Flow Rate FiO2 05/08/18 14:00 98.2 73 20 141/65 (90) 96 I&O- Last 24 Hours up to 6 AM 05/08/18 06:00 Intake Total 1140 ml Output Total 0 ml Balance 1140 ml Laboratory Data 24H LABS Laboratory Tests 2 05/08/18 05:22: Nucleated Red Blood Cells % (auto) 0.0, Anion Gap 6L, Glomerular Filtration Rate > 60.0, Blood Urea Nitrogen 16, Creatinine 0.93, Sodium Level 137, Potassium Level 3.5, Chloride Level 99, Carbon Dioxide Level 32, Calcium Level 8.4L CBC/BMP Laboratory Tests 05/08/18 05:22 Red Blood Count 2.78 L, Mean Corpuscular Volume 90.6, Mean Corpuscular Hemoglobin 29.5, Mean Corpuscular Hemoglobin Concent 32.5, Red Cell Distribution Width 13.9, Calcium Level 8.4 L Microbiology Microbiology 05/02/18 Blood Culture - Final, Complete NO GROWTH AFTER 5 DAYS 04/29/18 Stool Occult Blood (ANALY) - Final, Complete 05/02/18 MRSA Screen - Final, Complete RYLEY JORDAN MD May 08, 2018 16:28
[2018-05-08] MEDS: DAPTOmycin 500 MG in NS 50 ML IV SCH (17:12)
[2018-05-08] MEDS: RAMELTEON 8 MG TAB (ROZEREM) PO SCH (20:26)
[2018-05-08] MEDS: CYANOCOBALAMIN 500 MCG TAB PO SCH (20:28)
[2018-05-08] MEDS: ROSUVASTATIN 10 MG TAB (CRESTOR) PO SCH (21:25)
[2018-05-09] MEDS: LEVOTHYROXINE 50MCG TABLET (0.05MG) PO SCH (05:29)
[2018-05-09 05:49] LABS: HEMOGLOBIN 8.4 g/dl (13.5-17.5); MEAN CORPUSCULAR HGB CONC 32.3 g/dl (32.0-36.5); MEAN CORPUSCULAR VOLUME 92.9 fl (80.0-96.0); PLATELET COUNT, AUTOMATED 576 10^3/uL (150-450)
[2018-05-09 06:00] VITALS: BP 147/67
[2018-05-09] MEDS: SODIUM CHLORIDE 0.9% INJ 10 ML SYR IV SCH ×2 (06:00→18:00)
[2018-05-09 06:16] LABS: BLOOD UREA NITROGEN 18 MG/DL (7-18); C REACTIVE PROTEIN QUANTITATIV 3.75 MG/DL (0.00-0.30); CALCIUM LEVEL 8.7 MG/DL (8.8-10.2); CARBON DIOXIDE LEVEL 31 MEQ/L (21-32); CHLORIDE LEVEL 99 MEQ/L (98-107); CREATININE FOR GFR 0.97 MG/DL (0.70-1.30); GLOMERULAR FILTRATION RATE > 60.0 (>35); GLUCOSE, FASTING 107 MG/DL (70-100); POTASSIUM SERUM 3.2 MEQ/L (3.5-5.1); SODIUM LEVEL 138 MEQ/L (136-145)
--- NOTE | 2018-05-09 07:04 | IPN ---
DATE: 05/08/2018 Mr. Lopez seems to be doing well. He has no new complaints today. His appetite is not great, but according to his granddaughter his appetite has been kind of decreasing over a few months. He has had no fever or chills. His last fever was on 05/02/2018. The patient has been on IV daptomycin since 05/03 currently day number day #6. Blood cultures were on 04/23, MSSA negative blood cultures were on 04/25 and 04/26. Transesophageal echocardiogram done by Dr. Siddiqi 05/01 showed no evidence of endocarditis. LABORATORY DATA: White count 9.8, hemoglobin 8.2, hematocrit 25.2, platelets 542. ESR 79. Sodium 137, potassium 3.5, chloride 99, bicarb 32, BUN 16, creatinine 0.93, glucose 107, calcium 8.4, CRP 1.84. PHYSICAL EXAMINATION: Temperature 98.2, pulse 73, respirations 20, blood pressure 145/94, O2 sat 96% on room air. Heart: Normal S1-S2. No murmurs appreciated. Lungs: There are a few but diminished but otherwise clear. Abdomen is soft, nontender. No visceromegaly. Extremities: No edema. IMPRESSION: MSSA bacteremia most likely origin is from the open wounds on the feet from frostbite injury with negative transesophageal echocardiogram. The patient will be treated for a total of 14 days from negative cultures. End of therapy will be on 05/09/2018. History of kidney stone with no evidence of infection currently. PLAN: Discontinue IV antibiotics after a dose of 05/09, repeat blood cultures as an outpatient in 1 week. CBC and CRP.
[2018-05-09] MEDS: ENOXAPARIN 30 MG/0.3 ML SYR (J1650) SC SCH (08:45)
[2018-05-09] MEDS: SENOKOT S TAB PO SCH ×2 (08:46→21:00)
[2018-05-09] MEDS: FUROSEMIDE 40 MG TAB PO SCH (08:46)
[2018-05-09] MEDS: METOPROLOL TART 12.5 MG PER 1/2 TAB PO SCH ×2 (08:47→20:46)
[2018-05-09] MEDS: ASPIRIN 81 MG CHEW TABLET PO SCH (08:47)
[2018-05-09] MEDS: FLUTICASONE PROP 0.05% NASAL SPRAY 16 GM (FLONASE) NARES SCH (08:48)
[2018-05-09] MEDS ORDERED: POTASSIUM CHLORIDE 10 MEQ SR TABLET PO ONE (09:00)
[2018-05-09 14:00] VITALS: BP 143/65
[2018-05-09] MEDS: DAPTOmycin 500 MG in NS 50 ML IV SCH (16:03)
--- NOTE | 2018-05-09 16:38 | NUR ---
Bedside swallow assessment completed in the afternoon on 05/09/18 continue regular diet with thin liquids. Staff reported that patient was holding food and having difficulty swallowing. Although this was not seen during the assessment, these types of challenges are common in individuals with Alzheimer's disease. Based on the results of this assessment, ST recommends patient maintain current diet of regular solids and thin liquids. Education was provided to staff and family on ways to promote oral intake and initiate a swallow when patient is holding or pocketing food. Ongoing eduction and assessment will be provided to assure patient is on the safest and least restrictive diet, and safe feeding strategies are implemented to maximize safety during PO intake. Addendum: 05/09/18 at 1643 by ARIADNE ROSARIO Amended: Links added.
--- NOTE | 2018-05-09 18:28 | IPNPDOC ---
Date Seen The patient was seen on 05/09/18. Progress Note SUBJECTIVE: Patient denies any complaints today, tells me he feels well OBJECTIVE PHYSICAL EXAMINATION: VITAL SIGNS: Please see below. GENERAL: Frail elderly man lying in bed he is in no acute distress HEENT: Cranial nerves appear grossly intact moist mucous membranes CARDIOVASCULAR: S1-S2 regular. RESPIRATORY: Clear to auscultation possibly some diminished breath sounds at the bases. Poor effort ABDOMINAL: Bowel sounds are present abdomen soft EXTREMITIES: No clubbing cyanosis or edema appreciated LABORATORY DATA, IMAGING STUDIES, MICROBIOLOGY: Please see below. Echocardiogram: 1. Preserved systolic function. 2. Aortic sclerosis but no stenosis or insufficiency. 3. Mild mitral insufficiency. 4. Trace tricuspid insufficiency. 5. No pulmonic insufficiency. 6. Intact atrial septum. 7. Normal flow in both right-sided and left-sided pulmonary veins. 8. Left atrial appendage free of thrombus. 9. Prominent atherosclerosis of aortic arch.. DVT prophylaxis ordered?: Lovenox Assessment and plan: 1. SOB -resolved likely 2/2 decompensated diastolic CHF c/w PO lasix 2. Obstructive uropathy - 2/2 urethral stricture - s/p dilation (04/26) and bladder neck resection appear significantly improved he has no further symptoms his renal function is within normal limits his Rose catheter has since been removed he is voiding no evidence of retention at this time he has had PVRs checked 3. MSSA bacteremia - 2/2 Staph aureus - possibly 2/2 ulceration of feet related to frostbite. Infectious disease help greatly appreciated no evidence of vegetation duration of therapy to be completed today. 4.Troponin elevation - possibly 2/2 NSTEMI (Type II) No complaints of chest pain, SOB or palpitations although the patient is a difficult historian given his dementia he does not have significant EKG changes cardiology help is greatly appreciated he is on aspirin and statin beta tamika he may require an outpatient ischemic evaluation. At this time it appears stable. 5. Normocytic anemia - likely 2/2 MENDY, he received 1 unit of PRBCs hemoglobin remained stable occult for blood is been negative 2 is continued on ferrous s ulfate 6. DLP - c/w Rosuvastatin 7. Hypothyroidism - c/w Levothyroxine 8. B12 deficiency - c/w supplementation 9.Dementia Currently mentation appears to be at baseline but is altogether quite poor I did a lengthy discussion previously with the family and I did express to them my concern given his advanced dementia and multiple comorbidities I do suspect that his long-term prognosis is quite poor. Disposition: Likely home tomorrow VS, I&O, 24H, Fishbone Vital Signs/I&O Vital Signs Date Time Temp Pulse Resp B/P (MAP) Pulse Ox O2 Delivery O2 Flow Rate FiO2 05/09/18 14:00 98.3 92 18 143/65 (91) 96 I&O- Last 24 Hours up to 6 AM 05/09/18 06:00 Intake Total 500 ml Output Total 250 ml Balance 250 ml Laboratory Data 24H LABS Laboratory Tests 2 05/09/18 05:27: Nucleated Red Blood Cells % (auto) 0.0, Anion Gap 8, Glomerular Filtration Rate > 60.0, Blood Urea Nitrogen 18, Creatinine 0.97, Sodium Level 138, Potassium Level 3.2L, Chloride Level 99, Carbon Dioxide Level 31, Calcium Level 8.7L, C- Reactive Protein, Quantitative 3.75H CBC/BMP Laboratory Tests 05/09/18 05:27 Red Blood Count 2.80 L, Mean Corpuscular Volume 92.9, Mean Corpuscular Hemoglobin 30.0, Mean Corpuscular Hemoglobin Concent 32.3, Red Cell Distribution Width 13.7, Calcium Level 8.7 L Microbiology Microbiology 05/09/18 Blood Culture, Received Pending 05/02/18 Blood Culture - Final, Complete NO GROWTH AFTER 5 DAYS 04/29/18 Stool Occult Blood (ANALY) - Final, Complete 05/02/18 MRSA Screen - Final, Complete RYLEY JORDAN MD May 09, 2018 18:27
[2018-05-09] MEDS: FERROUS SULFATE 325MG TAB PO SCH (20:46)
[2018-05-09] MEDS: ROSUVASTATIN 10 MG TAB (CRESTOR) PO SCH (20:47)
[2018-05-09] MEDS: CYANOCOBALAMIN 500 MCG TAB PO SCH (20:47)
[2018-05-09] MEDS: RAMELTEON 8 MG TAB (ROZEREM) PO SCH (20:47)
[2018-05-09 22:00] VITALS: BP 139/64
[2018-05-10] MEDS: SODIUM CHLORIDE 0.9% INJ 10 ML SYR IV SCH (04:54)
[2018-05-10] MEDS: LEVOTHYROXINE 50MCG TABLET (0.05MG) PO SCH (05:27)
[2018-05-10 05:47] LABS: HEMATOCRIT 24.7 % (42.0-52.0); HEMOGLOBIN 8.1 g/dl (13.5-17.5); MEAN CORPUSCULAR HEMOGLOBIN 30.7 pg (27.0-33.0); MEAN CORPUSCULAR HGB CONC 32.8 g/dl (32.0-36.5); MEAN CORPUSCULAR VOLUME 93.6 fl (80.0-96.0); PLATELET COUNT, AUTOMATED 520 10^3/uL (150-450); RED BLOOD COUNT 2.64 10^6/uL (4.30-6.10); WHITE BLOOD COUNT 8.7 10^3/uL (4.0-10.0)
[2018-05-10 06:00] VITALS: BP 131/61
[2018-05-10 06:06] LABS: BLOOD UREA NITROGEN 19 MG/DL (7-18); C REACTIVE PROTEIN QUANTITATIV 2.02 MG/DL (0.00-0.30); CALCIUM LEVEL 8.5 MG/DL (8.8-10.2); CARBON DIOXIDE LEVEL 30 MEQ/L (21-32); CHLORIDE LEVEL 102 MEQ/L (98-107); CREATININE FOR GFR 0.96 MG/DL (0.70-1.30); GLOMERULAR FILTRATION RATE > 60.0 (>35); GLUCOSE, FASTING 102 MG/DL (70-100); POTASSIUM SERUM 3.8 MEQ/L (3.5-5.1); SODIUM LEVEL 138 MEQ/L (136-145)
[2018-05-10 08:42] VITALS: BP 130/60
[2018-05-10] MEDS: SENOKOT S TAB PO SCH (08:42)
[2018-05-10] MEDS: METOPROLOL TART 12.5 MG PER 1/2 TAB PO SCH (08:42)
[2018-05-10] MEDS: FUROSEMIDE 40 MG TAB PO SCH (08:42)
[2018-05-10] MEDS: FLUTICASONE PROP 0.05% NASAL SPRAY 16 GM (FLONASE) NARES SCH (08:43)
[2018-05-10] MEDS ORDERED: ROZE8TAB16 PO (10:49)
[2018-05-10] MEDS ORDERED: METO1TAB87 PO (10:49)
[2018-05-10] MEDS ORDERED: FURO40TA2 PO (10:49)
--- NOTE | 2018-05-11 09:33 | DSES ---
DATE OF ADMISSION: 04/22/2018 DATE OF DISCHARGE: 05/10/2018 DISCHARGE DIAGNOSIS: Methicillin-sensitive Staphylococcus aureus (MSSA) bacteremia. SECONDARY DIAGNOSES: Obstructive uropathy. Troponin elevation. Diastolic congestive heart failure. Tbx-OM-qhjjqdxgx myocardial infarction (NSTEMI). Normocytic anemia. Dyslipidemia. Hypothyroidism. B12 deficiency. Dementia. CONSULTS: Dr. Chan, Urology. Dr. Siddiqi, Cardiology. Dr. Lr, Infectious Disease. HOSPITAL COURSE: The patient is a 87-year-old man who presented with lethargy and back pain and he was found to have acute kidney injury due to retention. He has kidney stones and there was concern that he possibly had some sepsis secondary to this. He was being evaluated to undergo urological procedure when he was noted that he was having an elevation of his troponin. He was medially treated for Bai-UM-hziggqfda myocardial infarction (NSTEMI) with cardiology assistance. Once this resolved, he would undergo cystoscopy with urethral dilatation for urethral stricture as well as placement of a catheter. He tolerated the procedure well. His renal function improved. He did eventually have his blood culture positive for MSSA bacteremia felt to be secondary to frostbite on his feet, infectious disease help greatly appreciated. A PICC line was placed and he completed a course of antibiotics while in hospital for 14 days. He had to have a RENETTA that demonstrated no vegetations. He had anemia of chronic disease and did received 1 unit of packed red blood cells (PRBCs) during his stay. SUBJECTIVE: This morning the patient tells me that he is feeling well although he always tells me that is feeling well and said that on the day of admission. OBJECTIVE: VITAL SIGNS: Temperature 98.1, pulse 57, respiratory rate 18, blood pressure 131/61, oxygen saturation 97% on room air. GENERAL: He is a frail, elderly, man, sitting up in bed accompanied by his granddaughter. The patient is in no acute distress. HEENT: Cranial nerves II-XII are grossly intact. He is awake, alert, and oriented to person, but not to place, time, or situtation. CARDIOVASCULAR EXAM: S1, S2 regular. RESPIRATORY EXAM: Clear. ABDOMINAL EXAM: Benign. EXTREMITIES: No clubbing, cyanosis, or edema. LABORATORY STUDIES: WBC 8.7, hemoglobin 8.1, platelet count 520. Chemistry panel: Sodium 138, potassium 3.8, chloride 102, bicarbonate 30, BUN 19, creatinine 0.9. MICROBIOLOGY: He had two bottles positive for MSSA bacteremia on the and . ASSESSMENT AND PLAN: This is a 87-year-old man with MSSA bacteremia. PROBLEMS: 1. Methicillin-sensitive Staphylococcus aureus (MSSA) bacteremia secondary to frostbite. He completed 2 weeks of antibiotics. He will be discharged with outpatient followup with infectious disease. Repeat blood cultures, CBC and CRP in 1 week. His PICC line will be removed. He is at his baseline which is functional baseline, he was two assist and requires 24/7 care at home with family prepared to provide him. 2. Advanced dementia. He is at his baseline after speaking with the family. I did have lengthy discussions throughout the hospitalization with the who is his healthcare proxy as well as the patient's son and granddaughter whom is a registered nurse. They agreed he really should be a DO NOT RESUSCITATE/DO NOT INTUBATE but the never appeared to make a decision. I did fill out a Medical Orders for Life-Sustaining Treatment (MOLST) form and left it with her. His correction prognosis will be quite poor as his disease progresses. 3. Wrb-JL-jnyrjigbj myocardial infarction (NSTEMI). Likely type 2 secondary to MSSA bacteremia. He was never with a complaint of symptoms. He did have a deviation in his troponin. He was treated medically. He was started on aspirin and a beta tamika which he will be sent home on and close followup with cardiology. He had transesophageal echocardiogram (RENETTA) while in the hospital. 4. Normocytic anemia. Likely secondary to iron deficiency anemia of chronic disease. Hemoccult was negative. He was given ferrous sulfate. He did have 1 unit of packed red blood cells (PRBCs) during his stay. Hemoglobin was stable throughout the course. 5. Dyslipidemia. He is on rosuvastatin for hypothyroidism. He is on levothyroxine. 6. Vitamin B12 deficiency. He is on supplementation. 7. Obstructive uropathy. Secondary to urethral stricture. He is status post dilatation on the and a bladder neck resection. His renal function improved to his baseline. He did have a Rose catheter for several days which was eventually removed and he was able to void with no significant retention on postvoid residuals. 8. Shortness of breath. He did have an episode of decompensated congestive heart failure that responded to diuretic therapy for several days and he is being discharged on Lasix 40 mg by mouth daily which he has tolerated for several days already. 9. Vitamin B12 deficiency. He is to continue supplementations. DISPOSITION: Home to the care of his , son, and granddaughters who are able to provide two people in the house 04/10. He is to followup with his primary care physician (PCP) in 7 days, Dr. Lr within 1 week, cardiology within 2 weeks, urology within 2 weeks. Activity as tolerated. Diet is 2 gram sodium. His home health is to resume. He is to return to the emergency room (ER) if symptoms worsen. MEDICATIONS AT THE TIME OF DISCHARGE: - Lasix 40 mg daily - metoprolol 12.5 mg twice a day - Rozerem 8 mg at bedtime - aspirin 325 mg daily - vitamin B12 1000 mcg daily - ferrous sulfate 325 mg every 2 days - ibuprofen 400 mg three times a day - Synthroid 50 mcg daily - Nystatin cream topically daily as needed - Crestor 5 mg daily Greater than 30 minutes spent organizing disposition.
== END 2018-05-10 13:16 | disposition home health service (06) | DRG 671 ==
LOC: EDBD 17:39 → M ED 17:39 → M ED INP 21:49 → M MSPAV 23:58 → M PCU 04-23 15:27 → M MSPAV 05-03 18:12
PROVIDERS: ADMIT Hospitalist; ATTEND Internal Medicine
PROC: 30233N1 Transfusion of Nonautologous Red Blood Cells into Peripheral Vein, Percutaneous Approach (ICD-10-PCS; 2018-04-26)
PROC: 0T9 Urinary System, Drainage (ICD-10-PCS; principal; 2018-04-26 11:20)
PROC: 02HV33Z Insertion of Infusion Device into Superior Vena Cava, Percutaneous Approach (ICD-10-PCS; 2018-05-04)
DX: N17.9 Acute kidney failure, unspecified (principal); I21.A1 Myocardial infarction type 2; I50.33 Acute on chronic diastolic (congestive) heart failure; J18.9 Pneumonia, unspecified organism; R78.81 Bacteremia; T33.821A Superficial frostbite of right foot, initial encounter; T33.822A Superficial frostbite of left foot, initial encounter; N20.0 Calculus of kidney; E78.5 Hyperlipidemia, unspecified; E03.9 Hypothyroidism, unspecified; E53.8 Deficiency of other specified B group vitamins; F02.80 Dementia in other diseases classified elsewhere, unspecified severity, without behavioral disturbance, psychotic disturbance, mood disturbance, and anxiety; D50.9 Iron deficiency anemia, unspecified; B95.61 Methicillin susceptible Staphylococcus aureus infection as the cause of diseases classified elsewhere; N13.5 Crossing vessel and stricture of ureter without hydronephrosis; Z79.899 Other long term (current) drug therapy; G30.9 Alzheimer's disease, unspecified; I25.10 Atherosclerotic heart disease of native coronary artery without angina pectoris; Z95.1 Presence of aortocoronary bypass graft; E29.1 Testicular hypofunction; R31.1 Benign essential microscopic hematuria; Z79.82 Long term (current) use of aspirin; X31.XXXA Exposure to excessive natural cold, initial encounter; Y92.009 Unspecified place in unspecified non-institutional (private) residence as the place of occurrence of the external cause

== ENCOUNTER → 2018-05-16 | Outpatient (REF) | payer MEDICARE, OTHER ==
[~2018-05-16] MED LIST changes: +FURO40TA2 PO; +METO1TAB87 PO; +MOTR200T44 PO; +ROZE8TAB16 PO
[2018-05-16 17:25] LABS: HEMATOCRIT 29.3 % (42.0-52.0); HEMOGLOBIN 9.3 g/dl (13.5-17.5); MEAN CORPUSCULAR HEMOGLOBIN 29.9 pg (27.0-33.0); MEAN CORPUSCULAR HGB CONC 31.7 g/dl (32.0-36.5); MEAN CORPUSCULAR VOLUME 94.2 fl (80.0-96.0); PLATELET COUNT, AUTOMATED 510 10^3/uL (150-450); RED BLOOD COUNT 3.11 10^6/uL (4.30-6.10); WHITE BLOOD COUNT 7.7 10^3/uL (4.0-10.0)
== END ==
LOC: M LAB REF 16:51
PROVIDERS: ATTEND Internal Medicine
DX: R78.81 Bacteremia (principal)

== ENCOUNTER → 2018-05-30 | Outpatient (REF) | payer MEDICARE, OTHER ==
[2018-05-30 16:40] LABS: BASO % 0.3 % (0.0-1.0); EOS # 0.2 10^3/uL (0.0-0.50); EOS % 1.5 % (0.0-3.0); HEMATOCRIT 28.6 % (42.0-52.0); HEMOGLOBIN 9.1 g/dl (13.5-17.5); LYMPH # 2.7 10^3/uL (1.5-4.5); LYMPH % 26.3 % (24.0-44.0); MEAN CORPUSCULAR HEMOGLOBIN 29.6 pg (27.0-33.0); MEAN CORPUSCULAR HGB CONC 31.8 g/dl (32.0-36.5); MEAN CORPUSCULAR VOLUME 93.2 fl (80.0-96.0); MONO # 0.9 10^3/uL (0.0-0.8); MONO % 8.3 % (0.0-5.0); NEUTROPHILS # 6.5 10^3/uL (1.8-7.7); NEUTROPHILS % 63.2 % (36.0-66.0); PLATELET COUNT, AUTOMATED 325 10^3/uL (150-450); RED BLOOD COUNT 3.07 10^6/uL (4.30-6.10); WHITE BLOOD COUNT 10.3 10^3/uL (4.0-10.0)
[2018-05-30 16:47] LABS: BLOOD UREA NITROGEN 51 MG/DL (7-18); C REACTIVE PROTEIN QUANTITATIV < 0.30 MG/DL (0.00-0.30); CALCIUM LEVEL 9.3 MG/DL (8.8-10.2); CARBON DIOXIDE LEVEL 33 MEQ/L (21-32); CHLORIDE LEVEL 99 MEQ/L (98-107); CREATININE FOR GFR 1.23 MG/DL (0.70-1.30); GLUCOSE, FASTING 87 MG/DL (70-100); IRON (FE) 57 UG/DL (65-175); PERCENT SATURATION 17.8 % (19.7-50.0); POTASSIUM SERUM 4.1 MEQ/L (3.5-5.1); SODIUM LEVEL 137 MEQ/L (136-145); TOTAL IRON BINDING CAPACITY 320 UG/DL (250-450)
[2018-05-30 16:58] LABS: FOLATE > 24.0 NG/ML; VITAMIN B12 LEVEL 546 PG/ML
== END ==
LOC: M LAB REF 15:36
PROVIDERS: ATTEND Internal Medicine Infectious Disease
DX: R78.81 Bacteremia (principal); D64.9 Anemia, unspecified